=== PATIENT | female | born 1950 | race Caucasian/White ===

== ENCOUNTER → 2016-05-04 | Outpatient (REF) | payer OTHER ==
[~2016-05-04] MED LIST: /ALLEGDTA PO; /ESOM40CA PO; ACET650T PO; ALBU17IN INH; ASPI81TA4 PO; BENA25TA4 PO; BENACAR PO; BENI40TA3 PO; CIPR500T89 PO; FEXO60CA PO; FISH1000 PO; FLAG500T PO; FLEX5TAB3 PO; LEVA12INH INH; NORCOTAB PO; POTA75TA PO; SING5CHW PO; SYMB16INH INH; ZETI10TA21 PO
[2016-05-04 15:57] LABS: MEAN CORPUSCULAR HEMOGLOBIN 31.2 pg (27.0-33.0); MEAN CORPUSCULAR HGB CONC 33.5 g/dl (32.0-36.5); MEAN CORPUSCULAR VOLUME 93.1 fl (80.0-96.0); RED CELL DISTRIBUTION WIDTH 12.9 % (11.5-14.5); WHITE BLOOD COUNT 11.5 K/mm3 (4.0-10.0)
[2016-05-04 16:14] LABS: ALBUMIN/GLOBULIN RATIO 1.18 (1.00-1.93); ALKALINE PHOSPHATASE 80 U/L (45-117); ALT/SGPT 39 U/L (12-78); ANION GAP 9 MEQ/L (8-16); AST/SGOT 24 U/L (15-37); BILIRUBIN,TOTAL 0.4 MG/DL (0.2-1.0); BLOOD UREA NITROGEN 14 MG/DL (7-18); CALCIUM LEVEL 9.2 MG/DL (8.8-10.2); CARBON DIOXIDE LEVEL 28 MEQ/L (21-32); CHLORIDE LEVEL 107 MEQ/L (98-107); CHOLESTEROL LEVEL 216 MG/DL (<200); CREATININE FOR GFR 0.92 MG/DL (0.55-1.02); GLOMERULAR FILTRATION RATE > 60.0 (>45); GLUCOSE, FASTING 98 MG/DL (80-110); POTASSIUM SERUM 4.3 MEQ/L (3.5-5.1); SODIUM LEVEL 144 MEQ/L (136-145); TOTAL PROTEIN 7.4 GM/DL (6.4-8.2); TRIGLYCERIDES LEVEL 129 MG/DL (<150)
== END ==
LOC: M SFHCPLAZ 13:49
PROVIDERS: ATTEND Nurse Practitioner Adult Health
DX: I10 Essential (primary) hypertension (principal); E78.00 Pure hypercholesterolemia, unspecified; E03.9 Hypothyroidism, unspecified

== ENCOUNTER 2016-05-22 11:22 | Emergency (ER) | payer OTHER ==
[2016-05-22] MEDS ORDERED: KETOROLAC 30 MG/ML VIAL (J1885) As Ordered ONE (13:51)
--- NOTE | 2016-05-22 14:08 | REP ---
Clinical: Renal colic. Comparison: 03/21/2012. Findings: Lung bases are clear. Liver, spleen, pancreas, bilateral adrenal glands and kidneys are normal. No perinephric stranding, hydroureteronephrosis, intrarenal or obstructing ureteral calculi are identified. The enteric system is without obstruction. Scattered colonic and sigmoid diverticula noted without acute diverticulitis. While the appendix appears mildly prominent, there is no appendiceal wall thickening or periappendiceal stranding to suggest acute appendicitis. Fat containing ventral hernia to the left of midline measures approximately 4 x 2.3 cm. No ascites. No free air. No obvious adenopathy. Abdominal aorta without aneurysm. Surrounding musculoskeletal structures demonstrate age-related changes without focal osseous abnormality. Impression: 1. Normal appearance of the urinary tract system. 2. Subtle prominence to the appendix without findings to suggest acute appendicitis. 3. A 4 cm fat containing left periumbilical/ventral hernia Signed by Vitor Yang MD 05/22/2016 01:59 P
[2016-05-22 14:11] LABS: BASO % 0.4 % (0.0-1.0); EOS # 0.2 K/mm3 (0.0-0.50); EOS % 1.6 % (0.0-3.0); LARGE UNSTAINED CELL # 0.2 K/mm3 (0.0-0.4); LARGE UNSTAINED CELL % 1.5 % (0.0-4.0); LYMPH # 2.5 K/mm3 (1.5-4.5); LYMPH % 20.9 % (24.0-44.0); MEAN CORPUSCULAR HEMOGLOBIN 30.4 pg (27.0-33.0); MEAN CORPUSCULAR HGB CONC 32.7 g/dl (32.0-36.5); MONO # 0.8 K/mm3 (0.0-0.8); NEUTROPHILS # 7.5 K/mm3 (1.8-7.7); NEUTROPHILS % 68.6 % (36.0-66.0); PLATELET COUNT, AUTOMATED 281 k/mm3 (150-450); WHITE BLOOD COUNT 10.9 K/mm3 (4.0-10.0)
[2016-05-22 14:29] LABS: ALBUMIN 3.8 GM/DL (3.2-5.2); ALBUMIN/GLOBULIN RATIO 1.06 (1.00-1.93); ALKALINE PHOSPHATASE 69 U/L (45-117); ALT/SGPT 36 U/L (12-78); ANION GAP 9 MEQ/L (8-16); AST/SGOT 18 U/L (15-37); BILIRUBIN,DIRECT 0.1 MG/DL (0.0-0.2); BILIRUBIN,TOTAL 0.5 MG/DL (0.2-1.0); BLOOD UREA NITROGEN 13 MG/DL (7-18); CALCIUM LEVEL 9.2 MG/DL (8.8-10.2); CARBON DIOXIDE LEVEL 27 MEQ/L (21-32); CHLORIDE LEVEL 105 MEQ/L (98-107); CREATININE FOR GFR 0.87 MG/DL (0.55-1.02); GLOMERULAR FILTRATION RATE > 60.0 (>45); GLUCOSE, FASTING 111 MG/DL (80-110); POTASSIUM SERUM 3.9 MEQ/L (3.5-5.1); SODIUM LEVEL 141 MEQ/L (136-145); TOTAL PROTEIN 7.4 GM/DL (6.4-8.2)
--- NOTE | 2016-05-22 15:14 | EDDOCDS ---
Nurse's Notes [facility] Name: Janet Mullins Age: 66 yrs Sex: Female : 1950 Arrival Date: 05/22/2016 Time: 11:22 Bed I4 / M4 Private MD: Anjel Cummings Diagnosis: Abdominal and pelvic pain-right sided;Ventral hernia Presentation: 05/22 11:29 Presenting complaint: Patient states: Pt presents with c/o right sided abdominal and dls flank pain since pt has hx of kidney stones. Pt drinking water from large cup in triage instructed pt to be NPO until evaluated. Acute neurological deficits are not present. Mechanism of Injury: No Mechanism of Injury. Adult Sepsis Screening: The patient does not have new or worsening altered mentation. Patient's respiratory rate is less than 22. Systolic blood pressure is greater than 100. Patient has a qSOFA score of 0- Negative Sepsis Screen. Suicide/Homicide risk assessment- the patient denies having any suicidal and/or homicidal ideations and does not present with any other emotional, behavioral or mental health complaints. Status: Patient is not a appliance servicer or dependent. Transition of care: patient was not received from another setting of care. 11:29 Acuity: DAWIT Level 3 dls 11:29 Method Of Arrival: Walkin/Carried/Asstd dls Triage Assessment: 11:35 General: Appears uncomfortable. Pain: Pain currently is 6 out of 10 on a pain scale. dls HIV screening NA for this visit Offered previously. Historical: - Allergies: PENICILLINS; SULFA (SULFONAMIDES); - Home Meds: 1. benecar 40mg daily 2. Singulair Unknown Oral once daily 3. Zetia 10 mg Oral tab once daily 4. Synthroid 25 mcg Oral tab 1 tab once daily 5. Vitamin D Oral 2000 units daily 6. Nexium Unknown Oral 1 cap once daily 7. aspirin 81 mg Oral cpDR 81 mg daily 8. Flexeril 15mg Oral nightly 9. Probiotic Complex oral oral daily - PMHx: Asthma; Hypercholesterolemia; Hypertension; Kidney stones; - PSHx: Cholecystectomy; Knee Arthroplasty, Right; - Social history: Smoking status: Patient/guardian denies using No barriers to communication noted, The patient speaks fluent Turkmen. - Family history: Not pertinent. - : The pt / caregiver states he / she is not on anticoagulants. Home medication list is obtained from the patient, Unable to Verify Home Med List with the patient / caregiver. - Exposure Risk Screening:: None identified. Screenin:12 Screening information is obtained from the patient. Fall risk: No risks identified. dsf Assistance ADL's: requires no assistance with activities of daily living. Abuse/DV Screen: The patient / caregiver reports he/she is: not in a situation that causes fear, pain or injury. Nutritional screening: No deficits noted. Advance Directives: Currently, there is no health care proxy. home support is adequate. Assessment: 14:02 General: Appears in no apparent distress, Behavior is appropriate for age, cooperative. dsf Pain: Location: right upper quadrant and back Pain currently is 7 out of 10 on a pain scale. Quality of pain is described as constant. Neurological: Level of Consciousness is awake, alert. Cardiovascular: Capillary refill < 3 seconds. Respiratory: Airway is patent Respiratory effort is even, unlabored, Respiratory pattern is regular, symmetrical. Derm: Skin is pink, warm & dry. Musculoskeletal: No deficits noted. 15:11 Adult Sepsis Screening: The patient does not have new or worsening altered mentation. dsf Patient's respiratory rate is less than 22. Systolic blood pressure is greater than 100. Patient has a qSOFA score of 0- Negative Sepsis Screen. General: Appears in no apparent distress, Behavior is appropriate for age, cooperative. Pain: Location: RLQ and back Pain currently is 7 out of 10 on a pain scale. Neurological: Level of Consciousness is awake, alert. Cardiovascular: Capillary refill < 3 seconds. Respiratory: Airway is patent Respiratory effort is even, unlabored, Respiratory pattern is regular, symmetrical. Derm: Skin is pink, warm & dry. Vital Signs: 11:24 BP 148 / 95; Pulse 93; Resp 18; Temp 97.0(O); Pulse Ox 96% on R/A; Weight 106.14 kg ct3 (R); Height 5 ft. 2 in. (157.48 cm) (R); Pain 6/10; 14:50 BP 172 / 91; Pulse 74; Resp 20; Temp 96.2; Pulse Ox 97% ; Pain 4/10; jam1 11:24 Body Mass Index 42.80 (106.14 kg, 157.48 cm) ct3 Vitals: 11:24 Log In Time: May 22, 2016 at 11:23. ct3 ED Course: 11:24 Patient visited by Natalia Coulter PCA. ct3 11:24 Anjel Cummings MD is Private Physician. ct3 11:24 Patient moved to Waiting ct3 11:25 Patient moved to Pre RCE ct3 11:30 Triage Initiated dls 13:13 Patient moved to Triage 1 mk4 13:15 Miles Martinez PA-C is PHCP. cc10 13:15 Hugo Vasquez MD is Attending Physician. cc10 13:27 Patient visited by Miles Martinez PA-C. cc10 13:27 Patient visited by Miles Martinez PA-C. cc10 13:35 Pao Perez,CARLOS ALBERTO is Primary Nurse. ct3 13:35 Natalie Key, CARLOS ALBERTO is Primary Nurse. ct3 13:35 Patient moved to I4 / M4 ct3 13:44 Urinalysis Sent. ct3 13:44 Urine Culture Sent. ct3 14:02 Basic Metabolic Profile Sent. dsf 14:02 CBC with Diff Sent. dsf 14:02 Lipase Sent. dsf 14:02 Liver Profile Sent. dsf 14:03 Patient visited by Mayra Thomas,CARLOS ALBERTO. dsf 14:03 Inserted saline lock: 20 gauge in right antecubital area The patient tolerated the dsf procedure well. 14:23 CT ABD & PELVIS: No Contrast Returned. EDMS 14:31 Patient visited by Miles Martinez PA-C. cc10 15:07 Anjel Cummings MD is Referral Physician. cc10 15:12 The patient / caregiver is instructed regarding the plan of care and ED course. Patient dsf has correct armband on for positive identification. 15:13 Discontinued lock intact, bleeding controlled, pressure dressing applied, No dsf redness/swelling at site. No procedures done that require assistance. Administered Medications: 14:02 Drug: NS 0.9% 1000 ml [sodium chloride 0.9 % injection solution] Route: IV; Rate: dsf bolus; Site: right antecubital; 15:12 Follow up: IV Status: Completed infusion; IV Intake: 1000ml dsf 14:02 Drug: ketorolac 30 mg [ketorolac 30 mg/mL (1 mL) injection solution (1 mL)] Route: IVP; dsf Site: right antecubital; Intake: 15:12 IV: 1000.00ml; Total: 1000.00ml. dsf Order Results: Lab Order: Basic Metabolic Profile; SPEC05/22/16 13:59 Test: GLUCOSE, FASTING; Value: 111; Range: 80-110; Abnormal: Above high normal; Units: MG/DL; Status: F Test: BLOOD UREA NITROGEN; Value: 13; Range: 7-18; Units: MG/DL; Status: F Test: CREATININE FOR GFR; Value: 0.87; Range: 0.55-1.02; Units: MG/DL; Status: F Test: GLOMERULAR FILTRATION RATE; Value: > 60.0; Range: >45; Status: F Test: SODIUM LEVEL; Value: 141; Range: 136-145; Units: MEQ/L; Status: F Test: POTASSIUM SERUM; Value: 3.9; Range: 3.5-5.1; Units: MEQ/L; Status: F Test: CHLORIDE LEVEL; Value: 105; Range: 98-107; Units: MEQ/L; Status: F Test: CARBON DIOXIDE LEVEL; Value: 27; Range: 21-32; Units: MEQ/L; Status: F Test: ANION GAP; Value: 9; Range: 8-16; Units: MEQ/L; Status: F Test: CALCIUM LEVEL; Value: 9.2; Range: 8.8-10.2; Units: MG/DL; Status: F Test Note: ; Units are mL/min/1.73 m2 Chronic Kidney Disease Staging per NKF: Stage I & II GFR >=60 Normal to Mildly Decreased Stage III GFR 30-59 Moderately Decreased Stage IV GFR 15-29 Severely Decreased Stage V GFR <15 Very Little GFR Left ESRD GFR <15 on MACH[employer]PECTOR Lab Order: CBC with Diff; SPEC05/22/16 13:59 Test: WHITE BLOOD COUNT; Value: 10.9; Range: 4.0-10.0; Abnormal: Above high normal; Units: K/mm3; Status: F Test: RED BLOOD COUNT; Value: 5.07; Range: 4.00-5.40; Units: M/mm3; Status: F Test: HEMOGLOBIN; Value: 15.4; Range: 12.0-16.0; Units: g/dl; Status: F Test: HEMATOCRIT; Value: 47.2; Range: 36.0-47.0; Abnormal: Above high normal; Units: %; Status: F Test: MEAN CORPUSCULAR VOLUME; Value: 93.0; Range: 80.0-96.0; Units: fl; Status: F Test: MEAN CORPUSCULAR HEMOGLOBIN; Value: 30.4; Range: 27.0-33.0; Units: pg; Status: F Test: MEAN CORPUSCULAR HGB CONC; Value: 32.7; Range: 32.0-36.5; Units: g/dl; Status: F Test: RED CELL DISTRIBUTION WIDTH; Value: 13.0; Range: 11.5-14.5; Units: %; Status: F Test: PLATELET COUNT, AUTOMATED; Value: 281; Range: 150-450; Units: k/mm3; Status: F Test: NEUTROPHILS %; Value: 68.6; Range: 36.0-66.0; Abnormal: Above high normal; Units: %; Status: F Test: LYMPH %; Value: 20.9; Range: 24.0-44.0; Abnormal: Below low normal; Units: %; Status: F Test: MONO %; Value: 7.0; Range: 0.0-5.0; Abnormal: Above high normal; Units: %; Status: F Test: EOS %; Value: 1.6; Range: 0.0-3.0; Units: %; Status: F Test: BASO %; Value: 0.4; Range: 0.0-1.0; Units: %; Status: F Test: LARGE UNSTAINED CELL %; Value: 1.5; Range: 0.0-4.0; Units: %; Status: F Test: NEUTROPHILS #; Value: 7.5; Range: 1.8-7.7; Units: K/mm3; Status: F Test: LYMPH #; Value: 2.5; Range: 1.5-4.5; Units: K/mm3; Status: F Test: MONO #; Value: 0.8; Range: 0.0-0.8; Units: K/mm3; Status: F Test: EOS #; Value: 0.2; Range: 0.0-0.50; Units: K/mm3; Status: F Test: BASO #; Value: 0.0; Range: 0.0-0.2; Units: K/mm3; Status: F Test: LARGE UNSTAINED CELL #; Value: 0.2; Range: 0.0-0.4; Units: K/mm3; Status: F Lab Order: Lipase; [facility] 05/22/16 13:59 Test: LIPASE; Value: 129; Range: 73-393; Units: U/L; Status: F Lab Order: Liver Profile; [facility] 05/22/16 13:59 Test: AST/SGOT; Value: 18; Range: 15-37; Units: U/L; Status: F Test: ALT/SGPT; Value: 36; Range: 12-78; Units: U/L; Status: F Test: ALKALINE PHOSPHATASE; Value: 69; Range: 45-117; Units: U/L; Status: F Test: BILIRUBIN,TOTAL; Value: 0.5; Range: 0.2-1.0; Units: MG/DL; Status: F Test: BILIRUBIN,DIRECT; Value: 0.1; Range: 0.0-0.2; Units: MG/DL; Status: F Test: TOTAL PROTEIN; Value: 7.4; Range: 6.4-8.2; Units: GM/DL; Status: F Test: ALBUMIN; Value: 3.8; Range: 3.2-5.2; Units: GM/DL; Status: F Test: ALBUMIN/GLOBULIN RATIO; Value: 1.06; Range: 1.00-1.93; Status: F Lab Order: Urinalysis; [facility] 05/22/16 13:38 Test: APPEARANCE, URINE; Value: CLEAR; Range: CLEAR; Status: F Test: COLOR, URINE; Value: STRAW; Range: YELLOW; Status: F Test: PH,URINE; Value: 6.0; Range: 5.0-9.0; Units: UNITS; Status: F Test: SPECIFIC GRAVITY URINE AUTO; Value: 1.004; Range: 1.002-1.035; Status: F Test: PROTEIN, URINE AUTO; Value: NEGATIVE; Range: NEGATIVE; Units: mg/dL; Status: F Test: GLUCOSE, URINE (UA) AUTO; Value: NEGATIVE; Range: NEGATIVE; Units: mg/dL; Status: F Test: KETONE, URINE AUTO; Value: NEGATIVE; Range: NEGATIVE; Units: mg/dL; Status: F Test: UROBILINOGEN, URINE AUTO; Value: 0.2; Range: 0.0-2.0; Units: mg/dL; Status: F Test: BILIRUBIN, URINE AUTO; Value: NEGATIVE; Range: NEGATIVE; Status: F Test: NITRITE, URINE AUTO; Value: NEGATIVE; Range: NEGATIVE; Status: F Test: LEUKOCYTE ESTERASE, URINE AUTO; Value: NEGATIVE; Range: NEGATIVE; Status: F Test: BLOOD, URINE BLOOD; Value: NEGATIVE; Range: NEGATIVE; Status: F Test: WBC, URINE AUTO; Value: 2; Range: 0-3; Units: /HPF; Status: F Test: RBC, URINE AUTO; Value: 2; Range: 0-3; Units: /HPF; Status: F Test: BACTERIA, URINE AUTO; Value: 1+; Range: NEGATIVE; Abnormal: Above high normal; Status: F Test: SQUAMOUS EPITHELIAL CELL UR AU; Value: 2; Range: 0-6; Units: /HPF; Status: F Test: HYALINE CAST, URINE AUTO; Value: 0; Range: 0-1; Units: /LPF; Status: F Radiology Order: CT ABD & PELVIS: No Contrast Test: CT ABD & PELVIS: No Contrast REASON FOR EXAMINATION: Renal colic; Clinical: Renal colic.; ; Comparison: 03/21/2012.; ; Findings:; Lung bases are clear.; ; Liver, spleen, pancreas, bilateral adrenal glands and kidneys are normal. No; perinephric stranding, hydroureteronephrosis, intrarenal or obstructing ureteral; calculi are identified. The enteric system is without obstruction. Scattered; colonic and sigmoid diverticula noted without acute diverticulitis. While the; appendix appears mildly prominent, there is no appendiceal wall thickening or; periappendiceal stranding to suggest acute appendicitis. Fat containing ventral; hernia to the left of midline measures approximately 4 x 2.3 cm. No ascites. No; free air. No obvious adenopathy. Abdominal aorta without aneurysm. Surrounding; musculoskeletal structures demonstrate age-related changes without focal osseous; abnormality.; ; Impression:; 1. Normal appearance of the urinary tract system.; 2. Subtle prominence to the appendix without findings to suggest acute; appendicitis.; 3. A 4 cm fat containing left periumbilical/ventral hernia; ; ; Signed by; Vitor Yang MD 05/22/2016 01:59 P; Outcome: 15:07 Discharge ordered by Provider. cc10 15:12 Discharge Assessment: Patient awake, alert and oriented x 3. No cognitive and/or dsf functional deficits noted. Patient verbalized understanding of disposition instructions. patient administered narcotics - no. The following High Risk Discharge criteria are identified: None. Discharged to home ambulatory. Condition: stable. Discharge instructions given to patient, Instructed on discharge instructions, follow up and referral plans. medication usage, Demonstrated understanding of instructions, medications, Pt was receptive of discharge instructions/ teaching. Prescriptions given X 1. CT Study completed. Property sent home with patient. 15:13 Patient left the ED. dsf Signatures: Dispatcher [employer] EDMS Soniya Garcia, RN RN Norah Meyers, DIDACTIC PROGRAM IN DIETETICS DIRECTOR DIDACTIC PROGRAM IN DIETETICS DIRECTOR jam1 Natalia Coulter, DIDACTIC PROGRAM IN DIETETICS DIRECTOR DIDACTIC PROGRAM IN DIETETICS DIRECTOR ct3 Mayra Thomas RN RN dsAlem Cornejo RN RN 4 Miles Martinez, PA-Say PA-C cc10 ANNA
--- NOTE | 2016-05-22 15:14 | EDDOCDS ---
Physician Documentation [facility] Name: Janet Mullins Age: 66 yrs Sex: Female : 1950 Arrival Date: 05/22/2016 Time: 11:22 Bed I4 / M4 Private MD: Anjel Cummings Disposition: 05/22/16 15:07 Discharged to Home/Self Care. Impression: Abdominal and pelvic pain - right sided, Ventral hernia. - Condition is Stable. - Discharge Instructions: Abdominal Pain, Adult. - Prescriptions for Miralax 17 gram/dose - take 17 gram by ORAL route once daily As needed dilute in 8 ounces of water or juice; 1 bottle. - Medication Reconciliation form. - Follow up: Anjel Cummings MD; When: Call to arrange an appointment; Reason: Wound/Symptom Recheck, Recheck today's complaints, Worsening of conditions, Continuance of care. - Problem is an ongoing problem. - Symptoms have improved. Historical: - Allergies: PENICILLINS; SULFA (SULFONAMIDES); - Home Meds: 1. benecar 40mg daily 2. Singulair Unknown Oral once daily 3. Zetia 10 mg Oral tab once daily 4. Synthroid 25 mcg Oral tab 1 tab once daily 5. Vitamin D Oral 2000 units daily 6. Nexium Unknown Oral 1 cap once daily 7. aspirin 81 mg Oral cpDR 81 mg daily 8. Flexeril 15mg Oral nightly 9. Probiotic Complex oral oral daily - PMHx: Asthma; Hypercholesterolemia; Hypertension; Kidney stones; - PSHx: Cholecystectomy; Knee Arthroplasty, Right; - Social history: Smoking status: Patient/guardian denies using No barriers to communication noted, The patient speaks fluent Urdu. - Family history: Not pertinent. - : The pt / caregiver states he / she is not on anticoagulants. Home medication list is obtained from the patient, Unable to Verify Home Med List with the patient / caregiver. - Exposure Risk Screening:: None identified. Vital Signs: 05/22 11:24 BP 148 / 95; Pulse 93; Resp 18; Temp 97.0(O); Pulse Ox 96% on R/A; Weight 106.14 kg / ct3 234 lbs (R); Height 5 ft. 2 in. (157.48 cm) (R); Pain 6/10; 14:50 BP 172 / 91; Pulse 74; Resp 20; Temp 96.2; Pulse Ox 97% ; Pain 4/10; jam1 11:24 Body Mass Index 42.80 (106.14 kg, 157.48 cm) ct3 MDM: 13:33 NS 0.9% 1000 ml IV at bolus once ordered. cc10 13:33 ketorolac 30 mg IVP once ordered. cc10 13:33 IV Saline Lock ordered. cc10 13:33 Undress patient appropriately for examination ordered. cc10 13:34 Basic Metabolic Profile Ordered. EDMS 13:34 CBC with Diff Ordered. EDMS 13:34 Lipase Ordered. EDMS 13:34 Liver Profile Ordered. EDMS 13:34 Urinalysis Ordered. EDMS 13:34 Urine Culture Ordered. EDMS 13:35 CT ABD & PELVIS: No Contrast Ordered. EDMS 13:35 NOTHING BY MOUTH+DIET ordered. EDMS 14:31 Vital Signs ordered. cc10 14:31 Basic Metabolic Profile Reviewed. cc10 14:31 CBC with Diff Reviewed. cc10 14:31 Urinalysis Reviewed. cc10 14:31 Lipase Reviewed. cc10 14:31 Liver Profile Reviewed. cc10 14:31 CT ABD & PELVIS: No Contrast Reviewed. cc10 Administered Medications: 14:02 Drug: NS 0.9% 1000 ml [sodium chloride 0.9 % injection solution] Route: IV; Rate: dsf bolus; Site: right antecubital; 15:12 Follow up: IV Status: Completed infusion; IV Intake: 1000ml dsf 14:02 Drug: ketorolac 30 mg [ketorolac 30 mg/mL (1 mL) injection solution (1 mL)] Route: IVP; dsf Site: right antecubital; Signatures: Dispatcher [employer] Soniya Mendez, RN RN [facility] Mayra Thomas RN RN dsf Miles Martinez PA-C PAShahbaz cc10 MTDD
--- NOTE | 2016-05-24 16:14 | EDDOCDS ---
Nurse's Notes [facility] Name: Janet Mullins Age: 66 yrs Sex: Female : 1950 Arrival Date: 05/22/2016 Time: 11:22 Bed I4 / M4 Private MD: Anjel Cummings Diagnosis: Abdominal and pelvic pain-right sided;Ventral hernia Presentation: 05/22 11:29 Presenting complaint: Patient states: Pt presents with c/o right sided abdominal and dls flank pain since pt has hx of kidney stones. Pt drinking water from large cup in triage instructed pt to be NPO until evaluated. Acute neurological deficits are not present. Mechanism of Injury: No Mechanism of Injury. Adult Sepsis Screening: The patient does not have new or worsening altered mentation. Patient's respiratory rate is less than 22. Systolic blood pressure is greater than 100. Patient has a qSOFA score of 0- Negative Sepsis Screen. Suicide/Homicide risk assessment- the patient denies having any suicidal and/or homicidal ideations and does not present with any other emotional, behavioral or mental health complaints. Status: Patient is not a water softener servicer or dependent. Transition of care: patient was not received from another setting of care. 11:29 Acuity: DAWIT Level 3 dls 11:29 Method Of Arrival: Walkin/Carried/Asstd dls Triage Assessment: 11:35 General: Appears uncomfortable. Pain: Pain currently is 6 out of 10 on a pain scale. dls HIV screening NA for this visit Offered previously. Historical: - Allergies: PENICILLINS; SULFA (SULFONAMIDES); - Home Meds: 1. benecar 40mg daily 2. Singulair Unknown Oral once daily 3. Zetia 10 mg Oral tab once daily 4. Synthroid 25 mcg Oral tab 1 tab once daily 5. Vitamin D Oral 2000 units daily 6. Nexium Unknown Oral 1 cap once daily 7. aspirin 81 mg Oral cpDR 81 mg daily 8. Flexeril 15mg Oral nightly 9. Probiotic Complex oral oral daily - PMHx: Asthma; Hypercholesterolemia; Hypertension; Kidney stones; - PSHx: Cholecystectomy; Knee Arthroplasty, Right; - Social history: Smoking status: Patient/guardian denies using No barriers to communication noted, The patient speaks fluent Georgian. - Family history: Not pertinent. - : The pt / caregiver states he / she is not on anticoagulants. Home medication list is obtained from the patient, Unable to Verify Home Med List with the patient / caregiver. - Exposure Risk Screening:: None identified. Screenin:12 Screening information is obtained from the patient. Fall risk: No risks identified. dsf Assistance ADL's: requires no assistance with activities of daily living. Abuse/DV Screen: The patient / caregiver reports he/she is: not in a situation that causes fear, pain or injury. Nutritional screening: No deficits noted. Advance Directives: Currently, there is no health care proxy. home support is adequate. Assessment: 14:02 General: Appears in no apparent distress, Behavior is appropriate for age, cooperative. dsf Pain: Location: right upper quadrant and back Pain currently is 7 out of 10 on a pain scale. Quality of pain is described as constant. Neurological: Level of Consciousness is awake, alert. Cardiovascular: Capillary refill < 3 seconds. Respiratory: Airway is patent Respiratory effort is even, unlabored, Respiratory pattern is regular, symmetrical. Derm: Skin is pink, warm & dry. Musculoskeletal: No deficits noted. 15:11 Adult Sepsis Screening: The patient does not have new or worsening altered mentation. dsf Patient's respiratory rate is less than 22. Systolic blood pressure is greater than 100. Patient has a qSOFA score of 0- Negative Sepsis Screen. General: Appears in no apparent distress, Behavior is appropriate for age, cooperative. Pain: Location: RLQ and back Pain currently is 7 out of 10 on a pain scale. Neurological: Level of Consciousness is awake, alert. Cardiovascular: Capillary refill < 3 seconds. Respiratory: Airway is patent Respiratory effort is even, unlabored, Respiratory pattern is regular, symmetrical. Derm: Skin is pink, warm & dry. Vital Signs: 11:24 BP 148 / 95; Pulse 93; Resp 18; Temp 97.0(O); Pulse Ox 96% on R/A; Weight 106.14 kg ct3 (R); Height 5 ft. 2 in. (157.48 cm) (R); Pain 6/10; 14:50 BP 172 / 91; Pulse 74; Resp 20; Temp 96.2; Pulse Ox 97% ; Pain 4/10; jam1 11:24 Body Mass Index 42.80 (106.14 kg, 157.48 cm) ct3 Vitals: 11:24 Log In Time: May 22, 2016 at 11:23. ct3 ED Course: 11:24 Patient visited by Natalia Coulter PCA. ct3 11:24 Anjel Cummings MD is Private Physician. ct3 11:24 Patient moved to Waiting ct3 11:25 Patient moved to Pre RCE ct3 11:30 Triage Initiated dls 13:13 Patient moved to Triage 1 mk4 13:15 Miles Martinez PA-C is PHCP. cc10 13:15 Hugo Vasquez MD is Attending Physician. cc10 13:27 Patient visited by Miles Martinez PA-C. cc10 13:27 Patient visited by Miles Martinez PA-C. cc10 13:35 Pao Perez,RN is Primary Nurse. ct3 13:35 Natalie Key, CARLOS ALBERTO is Primary Nurse. ct3 13:35 Patient moved to I4 / M4 ct3 13:44 Urinalysis Sent. ct3 13:44 Urine Culture Sent. ct3 14:02 Basic Metabolic Profile Sent. dsf 14:02 CBC with Diff Sent. dsf 14:02 Lipase Sent. dsf 14:02 Liver Profile Sent. dsf 14:03 Patient visited by Mayra Thomas,CARLOS ALBERTO. dsf 14:03 Inserted saline lock: 20 gauge in right antecubital area The patient tolerated the dsf procedure well. 14:23 CT ABD & PELVIS: No Contrast Returned. EDMS 14:31 Patient visited by Miles Martinez PA-C. cc10 15:07 Anjel Cummings MD is Referral Physician. cc10 15:12 The patient / caregiver is instructed regarding the plan of care and ED course. Patient dsf has correct armband on for positive identification. 15:13 Discontinued lock intact, bleeding controlled, pressure dressing applied, No dsf redness/swelling at site. No procedures done that require assistance. 05/23 12:51 T-Sheet-- Draft Copy was scanned into [employer] and attached to record. gb Administered Medications: 05/22 14:02 Drug: NS 0.9% 1000 ml [sodium chloride 0.9 % injection solution] Route: IV; Rate: dsf bolus; Site: right antecubital; 15:12 Follow up: IV Status: Completed infusion; IV Intake: 1000ml dsf 14:02 Drug: ketorolac 30 mg [ketorolac 30 mg/mL (1 mL) injection solution (1 mL)] Route: IVP; dsf Site: right antecubital; Intake: 15:12 IV: 1000.00ml; Total: 1000.00ml. dsf Order Results: Lab Order: Basic Metabolic Profile; SPEC'M 05/22/16 13:59 Test: GLUCOSE, FASTING; Value: 111; Range: 80-110; Abnormal: Above high normal; Units: MG/DL; Status: F Test: BLOOD UREA NITROGEN; Value: 13; Range: 7-18; Units: MG/DL; Status: F Test: CREATININE FOR GFR; Value: 0.87; Range: 0.55-1.02; Units: MG/DL; Status: F Test: GLOMERULAR FILTRATION RATE; Value: > 60.0; Range: >45; Status: F Test: SODIUM LEVEL; Value: 141; Range: 136-145; Units: MEQ/L; Status: F Test: POTASSIUM SERUM; Value: 3.9; Range: 3.5-5.1; Units: MEQ/L; Status: F Test: CHLORIDE LEVEL; Value: 105; Range: 98-107; Units: MEQ/L; Status: F Test: CARBON DIOXIDE LEVEL; Value: 27; Range: 21-32; Units: MEQ/L; Status: F Test: ANION GAP; Value: 9; Range: 8-16; Units: MEQ/L; Status: F Test: CALCIUM LEVEL; Value: 9.2; Range: 8.8-10.2; Units: MG/DL; Status: F Test Note: ; Units are mL/min/1.73 m2 Chronic Kidney Disease Staging per NKF: Stage I & II GFR >=60 Normal to Mildly Decreased Stage III GFR 30-59 Moderately Decreased Stage IV GFR 15-29 Severely Decreased Stage V GFR <15 Very Little GFR Left ESRD GFR <15 on CARE PROCESS MANAGER Lab Order: CBC with Diff; SPEC'M 05/22/16 13:59 Test: WHITE BLOOD COUNT; Value: 10.9; Range: 4.0-10.0; Abnormal: Above high normal; Units: K/mm3; Status: F Test: RED BLOOD COUNT; Value: 5.07; Range: 4.00-5.40; Units: M/mm3; Status: F Test: HEMOGLOBIN; Value: 15.4; Range: 12.0-16.0; Units: g/dl; Status: F Test: HEMATOCRIT; Value: 47.2; Range: 36.0-47.0; Abnormal: Above high normal; Units: %; Status: F Test: MEAN CORPUSCULAR VOLUME; Value: 93.0; Range: 80.0-96.0; Units: fl; Status: F Test: MEAN CORPUSCULAR HEMOGLOBIN; Value: 30.4; Range: 27.0-33.0; Units: pg; Status: F Test: MEAN CORPUSCULAR HGB CONC; Value: 32.7; Range: 32.0-36.5; Units: g/dl; Status: F Test: RED CELL DISTRIBUTION WIDTH; Value: 13.0; Range: 11.5-14.5; Units: %; Status: F Test: PLATELET COUNT, AUTOMATED; Value: 281; Range: 150-450; Units: k/mm3; Status: F Test: NEUTROPHILS %; Value: 68.6; Range: 36.0-66.0; Abnormal: Above high normal; Units: %; Status: F Test: LYMPH %; Value: 20.9; Range: 24.0-44.0; Abnormal: Below low normal; Units: %; Status: F Test: MONO %; Value: 7.0; Range: 0.0-5.0; Abnormal: Above high normal; Units: %; Status: F Test: EOS %; Value: 1.6; Range: 0.0-3.0; Units: %; Status: F Test: BASO %; Value: 0.4; Range: 0.0-1.0; Units: %; Status: F Test: LARGE UNSTAINED CELL %; Value: 1.5; Range: 0.0-4.0; Units: %; Status: F Test: NEUTROPHILS #; Value: 7.5; Range: 1.8-7.7; Units: K/mm3; Status: F Test: LYMPH #; Value: 2.5; Range: 1.5-4.5; Units: K/mm3; Status: F Test: MONO #; Value: 0.8; Range: 0.0-0.8; Units: K/mm3; Status: F Test: EOS #; Value: 0.2; Range: 0.0-0.50; Units: K/mm3; Status: F Test: BASO #; Value: 0.0; Range: 0.0-0.2; Units: K/mm3; Status: F Test: LARGE UNSTAINED CELL #; Value: 0.2; Range: 0.0-0.4; Units: K/mm3; Status: F Lab Order: Lipase; [facility] 05/22/16 13:59 Test: LIPASE; Value: 129; Range: 73-393; Units: U/L; Status: F Lab Order: Liver Profile; [facility] 05/22/16 13:59 Test: AST/SGOT; Value: 18; Range: 15-37; Units: U/L; Status: F Test: ALT/SGPT; Value: 36; Range: 12-78; Units: U/L; Status: F Test: ALKALINE PHOSPHATASE; Value: 69; Range: 45-117; Units: U/L; Status: F Test: BILIRUBIN,TOTAL; Value: 0.5; Range: 0.2-1.0; Units: MG/DL; Status: F Test: BILIRUBIN,DIRECT; Value: 0.1; Range: 0.0-0.2; Units: MG/DL; Status: F Test: TOTAL PROTEIN; Value: 7.4; Range: 6.4-8.2; Units: GM/DL; Status: F Test: ALBUMIN; Value: 3.8; Range: 3.2-5.2; Units: GM/DL; Status: F Test: ALBUMIN/GLOBULIN RATIO; Value: 1.06; Range: 1.00-1.93; Status: F Lab Order: Urinalysis; [facility] 05/22/16 13:38 Test: APPEARANCE, URINE; Value: CLEAR; Range: CLEAR; Status: F Test: COLOR, URINE; Value: STRAW; Range: YELLOW; Status: F Test: PH,URINE; Value: 6.0; Range: 5.0-9.0; Units: UNITS; Status: F Test: SPECIFIC GRAVITY URINE AUTO; Value: 1.004; Range: 1.002-1.035; Status: F Test: PROTEIN, URINE AUTO; Value: NEGATIVE; Range: NEGATIVE; Units: mg/dL; Status: F Test: GLUCOSE, URINE (UA) AUTO; Value: NEGATIVE; Range: NEGATIVE; Units: mg/dL; Status: F Test: KETONE, URINE AUTO; Value: NEGATIVE; Range: NEGATIVE; Units: mg/dL; Status: F Test: UROBILINOGEN, URINE AUTO; Value: 0.2; Range: 0.0-2.0; Units: mg/dL; Status: F Test: BILIRUBIN, URINE AUTO; Value: NEGATIVE; Range: NEGATIVE; Status: F Test: NITRITE, URINE AUTO; Value: NEGATIVE; Range: NEGATIVE; Status: F Test: LEUKOCYTE ESTERASE, URINE AUTO; Value: NEGATIVE; Range: NEGATIVE; Status: F Test: BLOOD, URINE BLOOD; Value: NEGATIVE; Range: NEGATIVE; Status: F Test: WBC, URINE AUTO; Value: 2; Range: 0-3; Units: /HPF; Status: F Test: RBC, URINE AUTO; Value: 2; Range: 0-3; Units: /HPF; Status: F Test: BACTERIA, URINE AUTO; Value: 1+; Range: NEGATIVE; Abnormal: Above high normal; Status: F Test: SQUAMOUS EPITHELIAL CELL UR AU; Value: 2; Range: 0-6; Units: /HPF; Status: F Test: HYALINE CAST, URINE AUTO; Value: 0; Range: 0-1; Units: /LPF; Status: F Radiology Order: CT ABD & PELVIS: No Contrast Test: CT ABD & PELVIS: No Contrast REASON FOR EXAMINATION: Renal colic; Clinical: Renal colic.; ; Comparison: 03/21/2012.; ; Findings:; Lung bases are clear.; ; Liver, spleen, pancreas, bilateral adrenal glands and kidneys are normal. No; perinephric stranding, hydroureteronephrosis, intrarenal or obstructing ureteral; calculi are identified. The enteric system is without obstruction. Scattered; colonic and sigmoid diverticula noted without acute diverticulitis. While the; appendix appears mildly prominent, there is no appendiceal wall thickening or; periappendiceal stranding to suggest acute appendicitis. Fat containing ventral; hernia to the left of midline measures approximately 4 x 2.3 cm. No ascites. No; free air. No obvious adenopathy. Abdominal aorta without aneurysm. Surrounding; musculoskeletal structures demonstrate age-related changes without focal osseous; abnormality.; ; Impression:; 1. Normal appearance of the urinary tract system.; 2. Subtle prominence to the appendix without findings to suggest acute; appendicitis.; 3. A 4 cm fat containing left periumbilical/ventral hernia; ; ; Signed by; Vitor Yang MD 05/22/2016 01:59 P; Outcome: 15:07 Discharge ordered by Provider. cc10 15:12 Discharge Assessment: Patient awake, alert and oriented x 3. No cognitive and/or dsf functional deficits noted. Patient verbalized understanding of disposition instructions. patient administered narcotics - no. The following High Risk Discharge criteria are identified: None. Discharged to home ambulatory. Condition: stable. Discharge instructions given to patient, Instructed on discharge instructions, follow up and referral plans. medication usage, Demonstrated understanding of instructions, medications, Pt was receptive of discharge instructions/ teaching. Prescriptions given X 1. CT Study completed. Property sent home with patient. 15:13 Patient left the ED. dsf Signatures: Dispatcher [employer] EDMS Soniya Garcia, CARLOS ALBERTO RN dls Norah Hernandez, CREDIT ADMINISTRATION OFFICER CREDIT ADMINISTRATION OFFICER jam1 Winifred Lind, Reg Reg gb Natalia Coulter, CREDIT ADMINISTRATION OFFICER CREDIT ADMINISTRATION OFFICER ct3 Mayra Thomas RN RN dsf Alem Barrios RN RN mk4 Miles Martinez, PA-Say PA-Say cc10 Chart Complete MTDD
--- NOTE | 2016-05-24 16:14 | EDDOCDS ---
Physician Documentation [facility] Name: Janet Mullins Age: 66 yrs Sex: Female : 1950 Arrival Date: 05/22/2016 Time: 11:22 Bed I4 / M4 Private MD: Anjel Cummings Disposition: 05/22/16 15:07 Discharged to Home/Self Care. Impression: Abdominal and pelvic pain - right sided, Ventral hernia. - Condition is Stable. - Discharge Instructions: Abdominal Pain, Adult. - Prescriptions for Miralax 17 gram/dose - take 17 gram by ORAL route once daily As needed dilute in 8 ounces of water or juice; 1 bottle. - Medication Reconciliation form. - Follow up: Anjel Cummings MD; When: Call to arrange an appointment; Reason: Wound/Symptom Recheck, Recheck today's complaints, Worsening of conditions, Continuance of care. - Problem is an ongoing problem. - Symptoms have improved. Historical: - Allergies: PENICILLINS; SULFA (SULFONAMIDES); - Home Meds: 1. benecar 40mg daily 2. Singulair Unknown Oral once daily 3. Zetia 10 mg Oral tab once daily 4. Synthroid 25 mcg Oral tab 1 tab once daily 5. Vitamin D Oral 2000 units daily 6. Nexium Unknown Oral 1 cap once daily 7. aspirin 81 mg Oral cpDR 81 mg daily 8. Flexeril 15mg Oral nightly 9. Probiotic Complex oral oral daily - PMHx: Asthma; Hypercholesterolemia; Hypertension; Kidney stones; - PSHx: Cholecystectomy; Knee Arthroplasty, Right; - Social history: Smoking status: Patient/guardian denies using No barriers to communication noted, The patient speaks fluent Slovenian. - Family history: Not pertinent. - : The pt / caregiver states he / she is not on anticoagulants. Home medication list is obtained from the patient, Unable to Verify Home Med List with the patient / caregiver. - Exposure Risk Screening:: None identified. Vital Signs: 05/22 11:24 BP 148 / 95; Pulse 93; Resp 18; Temp 97.0(O); Pulse Ox 96% on R/A; Weight 106.14 kg / ct3 234 lbs (R); Height 5 ft. 2 in. (157.48 cm) (R); Pain 6/10; 14:50 BP 172 / 91; Pulse 74; Resp 20; Temp 96.2; Pulse Ox 97% ; Pain 4/10; jam1 11:24 Body Mass Index 42.80 (106.14 kg, 157.48 cm) ct3 MDM: 13:33 NS 0.9% 1000 ml IV at bolus once ordered. cc10 13:33 ketorolac 30 mg IVP once ordered. cc10 13:33 IV Saline Lock ordered. cc10 13:33 Undress patient appropriately for examination ordered. cc10 13:34 Basic Metabolic Profile Ordered. EDMS 13:34 CBC with Diff Ordered. EDMS 13:34 Lipase Ordered. EDMS 13:34 Liver Profile Ordered. EDMS 13:34 Urinalysis Ordered. EDMS 13:34 Urine Culture Ordered. EDMS 13:35 CT ABD & PELVIS: No Contrast Ordered. EDMS 13:35 NOTHING BY MOUTH+DIET ordered. EDMS 14:31 Vital Signs ordered. cc10 14:31 Basic Metabolic Profile Reviewed. cc10 14:31 CBC with Diff Reviewed. cc10 14:31 Urinalysis Reviewed. cc10 14:31 Lipase Reviewed. cc10 14:31 Liver Profile Reviewed. cc10 14:31 CT ABD & PELVIS: No Contrast Reviewed. cc10 05/23 12:51 T-Sheet-- Draft Copy was scanned into [employer] and attached to record. gb Administered Medications: 05/22 14:02 Drug: NS 0.9% 1000 ml [sodium chloride 0.9 % injection solution] Route: IV; Rate: dsf bolus; Site: right antecubital; 15:12 Follow up: IV Status: Completed infusion; IV Intake: 1000ml dsf 14:02 Drug: ketorolac 30 mg [ketorolac 30 mg/mL (1 mL) injection solution (1 mL)] Route: IVP; dsf Site: right antecubital; Signatures: Dispatcher [employer] Soniya Mendez RN RN dls Winifred Lind, Reg Reg Mayra Ortiz RN RN dsf Miles Martinez PA-C PA-C cc10 The chart was reviewed and I authenticate all verbal orders and agree with the evaluation and treatment provided.Attachments: 05/23 12:51 T-Sheet-- Draft Copy gb Chart Complete MTDD
--- NOTE | 2016-05-26 17:34 | EDDOCDS ---
Physician Documentation [facility] Name: Janet Mullins Age: 66 yrs Sex: Female : 1950 Arrival Date: 05/22/2016 Time: 11:22 Bed I4 / M4 Private MD: Anjel Cummings Disposition: 05/22/16 15:07 Discharged to Home/Self Care. Impression: Abdominal and pelvic pain - right sided, Ventral hernia. - Condition is Stable. - Discharge Instructions: Abdominal Pain, Adult. - Prescriptions for Miralax 17 gram/dose - take 17 gram by ORAL route once daily As needed dilute in 8 ounces of water or juice; 1 bottle. - Medication Reconciliation form. - Follow up: Anjel Cummings MD; When: Call to arrange an appointment; Reason: Wound/Symptom Recheck, Recheck today's complaints, Worsening of conditions, Continuance of care. - Problem is an ongoing problem. - Symptoms have improved. Historical: - Allergies: PENICILLINS; SULFA (SULFONAMIDES); - Home Meds: 1. benecar 40mg daily 2. Singulair Unknown Oral once daily 3. Zetia 10 mg Oral tab once daily 4. Synthroid 25 mcg Oral tab 1 tab once daily 5. Vitamin D Oral 2000 units daily 6. Nexium Unknown Oral 1 cap once daily 7. aspirin 81 mg Oral cpDR 81 mg daily 8. Flexeril 15mg Oral nightly 9. Probiotic Complex oral oral daily - PMHx: Asthma; Hypercholesterolemia; Hypertension; Kidney stones; - PSHx: Cholecystectomy; Knee Arthroplasty, Right; - Social history: Smoking status: Patient/guardian denies using No barriers to communication noted, The patient speaks fluent Czech. - Family history: Not pertinent. - : The pt / caregiver states he / she is not on anticoagulants. Home medication list is obtained from the patient, Unable to Verify Home Med List with the patient / caregiver. - Exposure Risk Screening:: None identified. Vital Signs: 05/22 11:24 BP 148 / 95; Pulse 93; Resp 18; Temp 97.0(O); Pulse Ox 96% on R/A; Weight 106.14 kg / ct3 234 lbs (R); Height 5 ft. 2 in. (157.48 cm) (R); Pain 6/10; 14:50 BP 172 / 91; Pulse 74; Resp 20; Temp 96.2; Pulse Ox 97% ; Pain 4/10; jam1 11:24 Body Mass Index 42.80 (106.14 kg, 157.48 cm) ct3 MDM: 13:33 NS 0.9% 1000 ml IV at bolus once ordered. cc10 13:33 ketorolac 30 mg IVP once ordered. cc10 13:33 IV Saline Lock ordered. cc10 13:33 Undress patient appropriately for examination ordered. cc10 13:34 Basic Metabolic Profile Ordered. EDMS 13:34 CBC with Diff Ordered. EDMS 13:34 Lipase Ordered. EDMS 13:34 Liver Profile Ordered. EDMS 13:34 Urinalysis Ordered. EDMS 13:34 Urine Culture Ordered. EDMS 13:35 CT ABD & PELVIS: No Contrast Ordered. EDMS 13:35 NOTHING BY MOUTH+DIET ordered. EDMS 14:31 Vital Signs ordered. cc10 14:31 Basic Metabolic Profile Reviewed. cc10 14:31 CBC with Diff Reviewed. cc10 14:31 Urinalysis Reviewed. cc10 14:31 Lipase Reviewed. cc10 14:31 Liver Profile Reviewed. cc10 14:31 CT ABD & PELVIS: No Contrast Reviewed. cc10 05/23 12:51 T-Sheet-- Draft Copy was scanned into [id number] and attached to record. gb Administered Medications: 05/22 14:02 Drug: NS 0.9% 1000 ml [sodium chloride 0.9 % injection solution] Route: IV; Rate: dsf bolus; Site: right antecubital; 15:12 Follow up: IV Status: Completed infusion; IV Intake: 1000ml dsf 14:02 Drug: ketorolac 30 mg [ketorolac 30 mg/mL (1 mL) injection solution (1 mL)] Route: IVP; dsf Site: right antecubital; Signatures: Dispatcher [employer] Soniya Mendez RN RN dls Winifred Lind, Reg Reg Mayra Ortiz RN RN dsf Miles Martinez PA-C PA-C cc10 The chart was reviewed and I authenticate all verbal orders and agree with the evaluation and treatment provided.Attachments: 05/23 12:51 T-Sheet-- Draft Copy gb Chart Complete MTDD
--- NOTE | 2016-05-26 17:34 | EDDOCDS ---
Physician Documentation [facility] Name: Janet Mullins Age: 66 yrs Sex: Female : 1950 Arrival Date: 05/22/2016 Time: 11:22 Bed I4 / M4 Private MD: Anjel Cummings Disposition: 05/22/16 15:07 Discharged to Home/Self Care. Impression: Abdominal and pelvic pain - right sided, Ventral hernia. - Condition is Stable. - Discharge Instructions: Abdominal Pain, Adult. - Prescriptions for Miralax 17 gram/dose - take 17 gram by ORAL route once daily As needed dilute in 8 ounces of water or juice; 1 bottle. - Medication Reconciliation form. - Follow up: Anjel Cummings MD; When: Call to arrange an appointment; Reason: Wound/Symptom Recheck, Recheck today's complaints, Worsening of conditions, Continuance of care. - Problem is an ongoing problem. - Symptoms have improved. Historical: - Allergies: PENICILLINS; SULFA (SULFONAMIDES); - Home Meds: 1. benecar 40mg daily 2. Singulair Unknown Oral once daily 3. Zetia 10 mg Oral tab once daily 4. Synthroid 25 mcg Oral tab 1 tab once daily 5. Vitamin D Oral 2000 units daily 6. Nexium Unknown Oral 1 cap once daily 7. aspirin 81 mg Oral cpDR 81 mg daily 8. Flexeril 15mg Oral nightly 9. Probiotic Complex oral oral daily - PMHx: Asthma; Hypercholesterolemia; Hypertension; Kidney stones; - PSHx: Cholecystectomy; Knee Arthroplasty, Right; - Social history: Smoking status: Patient/guardian denies using No barriers to communication noted, The patient speaks fluent Greek. - Family history: Not pertinent. - : The pt / caregiver states he / she is not on anticoagulants. Home medication list is obtained from the patient, Unable to Verify Home Med List with the patient / caregiver. - Exposure Risk Screening:: None identified. Vital Signs: 05/22 11:24 BP 148 / 95; Pulse 93; Resp 18; Temp 97.0(O); Pulse Ox 96% on R/A; Weight 106.14 kg / ct3 234 lbs (R); Height 5 ft. 2 in. (157.48 cm) (R); Pain 6/10; 14:50 BP 172 / 91; Pulse 74; Resp 20; Temp 96.2; Pulse Ox 97% ; Pain 4/10; jam1 11:24 Body Mass Index 42.80 (106.14 kg, 157.48 cm) ct3 MDM: 13:33 NS 0.9% 1000 ml IV at bolus once ordered. cc10 13:33 ketorolac 30 mg IVP once ordered. cc10 13:33 IV Saline Lock ordered. cc10 13:33 Undress patient appropriately for examination ordered. cc10 13:34 Basic Metabolic Profile Ordered. EDMS 13:34 CBC with Diff Ordered. EDMS 13:34 Lipase Ordered. EDMS 13:34 Liver Profile Ordered. EDMS 13:34 Urinalysis Ordered. EDMS 13:34 Urine Culture Ordered. EDMS 13:35 CT ABD & PELVIS: No Contrast Ordered. EDMS 13:35 NOTHING BY MOUTH+DIET ordered. EDMS 14:31 Vital Signs ordered. cc10 14:31 Basic Metabolic Profile Reviewed. cc10 14:31 CBC with Diff Reviewed. cc10 14:31 Urinalysis Reviewed. cc10 14:31 Lipase Reviewed. cc10 14:31 Liver Profile Reviewed. cc10 14:31 CT ABD & PELVIS: No Contrast Reviewed. cc10 05/23 12:51 T-Sheet-- Draft Copy was scanned into [employer] and attached to record. gb Administered Medications: 05/22 14:02 Drug: NS 0.9% 1000 ml [sodium chloride 0.9 % injection solution] Route: IV; Rate: dsf bolus; Site: right antecubital; 15:12 Follow up: IV Status: Completed infusion; IV Intake: 1000ml dsf 14:02 Drug: ketorolac 30 mg [ketorolac 30 mg/mL (1 mL) injection solution (1 mL)] Route: IVP; dsf Site: right antecubital; Signatures: Dispatcher [employer] Soniya Mendez RN RN dls Winifred Lind, Reg Reg Mayra Ortiz RN RN dsf Miles Martinez PA-C PA-C cc10 The chart was reviewed and I authenticate all verbal orders and agree with the evaluation and treatment provided.Attachments: 05/23 12:51 T-Sheet-- Draft Copy gb Chart Complete MTDD
--- NOTE | 2016-05-26 17:34 | EDDOCDS ---
Nurse's Notes [facility] Name: Janet Mullins Age: 66 yrs Sex: Female : 1950 Arrival Date: 05/22/2016 Time: 11:22 Bed I4 / M4 Private MD: Anjel Cummings Diagnosis: Abdominal and pelvic pain-right sided;Ventral hernia Presentation: 05/22 11:29 Presenting complaint: Patient states: Pt presents with c/o right sided abdominal and dls flank pain since pt has hx of kidney stones. Pt drinking water from large cup in triage instructed pt to be NPO until evaluated. Acute neurological deficits are not present. Mechanism of Injury: No Mechanism of Injury. Adult Sepsis Screening: The patient does not have new or worsening altered mentation. Patient's respiratory rate is less than 22. Systolic blood pressure is greater than 100. Patient has a qSOFA score of 0- Negative Sepsis Screen. Suicide/Homicide risk assessment- the patient denies having any suicidal and/or homicidal ideations and does not present with any other emotional, behavioral or mental health complaints. Status: Patient is not a guest services or dependent. Transition of care: patient was not received from another setting of care. 11:29 Acuity: DAWIT Level 3 dls 11:29 Method Of Arrival: Walkin/Carried/Asstd dls Triage Assessment: 11:35 General: Appears uncomfortable. Pain: Pain currently is 6 out of 10 on a pain scale. dls HIV screening NA for this visit Offered previously. Historical: - Allergies: PENICILLINS; SULFA (SULFONAMIDES); - Home Meds: 1. benecar 40mg daily 2. Singulair Unknown Oral once daily 3. Zetia 10 mg Oral tab once daily 4. Synthroid 25 mcg Oral tab 1 tab once daily 5. Vitamin D Oral 2000 units daily 6. Nexium Unknown Oral 1 cap once daily 7. aspirin 81 mg Oral cpDR 81 mg daily 8. Flexeril 15mg Oral nightly 9. Probiotic Complex oral oral daily - PMHx: Asthma; Hypercholesterolemia; Hypertension; Kidney stones; - PSHx: Cholecystectomy; Knee Arthroplasty, Right; - Social history: Smoking status: Patient/guardian denies using No barriers to communication noted, The patient speaks fluent Serbian. - Family history: Not pertinent. - : The pt / caregiver states he / she is not on anticoagulants. Home medication list is obtained from the patient, Unable to Verify Home Med List with the patient / caregiver. - Exposure Risk Screening:: None identified. Screenin:12 Screening information is obtained from the patient. Fall risk: No risks identified. dsf Assistance ADL's: requires no assistance with activities of daily living. Abuse/DV Screen: The patient / caregiver reports he/she is: not in a situation that causes fear, pain or injury. Nutritional screening: No deficits noted. Advance Directives: Currently, there is no health care proxy. home support is adequate. Assessment: 14:02 General: Appears in no apparent distress, Behavior is appropriate for age, cooperative. dsf Pain: Location: right upper quadrant and back Pain currently is 7 out of 10 on a pain scale. Quality of pain is described as constant. Neurological: Level of Consciousness is awake, alert. Cardiovascular: Capillary refill < 3 seconds. Respiratory: Airway is patent Respiratory effort is even, unlabored, Respiratory pattern is regular, symmetrical. Derm: Skin is pink, warm & dry. Musculoskeletal: No deficits noted. 15:11 Adult Sepsis Screening: The patient does not have new or worsening altered mentation. dsf Patient's respiratory rate is less than 22. Systolic blood pressure is greater than 100. Patient has a qSOFA score of 0- Negative Sepsis Screen. General: Appears in no apparent distress, Behavior is appropriate for age, cooperative. Pain: Location: RLQ and back Pain currently is 7 out of 10 on a pain scale. Neurological: Level of Consciousness is awake, alert. Cardiovascular: Capillary refill < 3 seconds. Respiratory: Airway is patent Respiratory effort is even, unlabored, Respiratory pattern is regular, symmetrical. Derm: Skin is pink, warm & dry. Vital Signs: 11:24 BP 148 / 95; Pulse 93; Resp 18; Temp 97.0(O); Pulse Ox 96% on R/A; Weight 106.14 kg ct3 (R); Height 5 ft. 2 in. (157.48 cm) (R); Pain 6/10; 14:50 BP 172 / 91; Pulse 74; Resp 20; Temp 96.2; Pulse Ox 97% ; Pain 4/10; jam1 11:24 Body Mass Index 42.80 (106.14 kg, 157.48 cm) ct3 Vitals: 11:24 Log In Time: May 22, 2016 at 11:23. ct3 ED Course: 11:24 Patient visited by Natalia Coulter PCA. ct3 11:24 Anjel Cummings MD is Private Physician. ct3 11:24 Patient moved to Waiting ct3 11:25 Patient moved to Pre RCE ct3 11:30 Triage Initiated dls 13:13 Patient moved to Triage 1 mk4 13:15 Miles Martinez PA-C is PHCP. cc10 13:15 Hugo aVsquez MD is Attending Physician. cc10 13:27 Patient visited by Miles Martinez PA-C. cc10 13:27 Patient visited by Miles Martinez PA-C. cc10 13:35 Pao Perez,RN is Primary Nurse. ct3 13:35 Natalie Key, CARLOS ALBERTO is Primary Nurse. ct3 13:35 Patient moved to I4 / M4 ct3 13:44 Urinalysis Sent. ct3 13:44 Urine Culture Sent. ct3 14:02 Basic Metabolic Profile Sent. dsf 14:02 CBC with Diff Sent. dsf 14:02 Lipase Sent. dsf 14:02 Liver Profile Sent. dsf 14:03 Patient visited by Mayra Thomas,CARLOS ALBERTO. dsf 14:03 Inserted saline lock: 20 gauge in right antecubital area The patient tolerated the dsf procedure well. 14:23 CT ABD & PELVIS: No Contrast Returned. EDMS 14:31 Patient visited by Miles Martinez PA-C. cc10 15:07 Anjel Cummings MD is Referral Physician. cc10 15:12 The patient / caregiver is instructed regarding the plan of care and ED course. Patient dsf has correct armband on for positive identification. 15:13 Discontinued lock intact, bleeding controlled, pressure dressing applied, No dsf redness/swelling at site. No procedures done that require assistance. 05/23 12:51 T-Sheet-- Draft Copy was scanned into [employer] and attached to record. gb Administered Medications: 05/22 14:02 Drug: NS 0.9% 1000 ml [sodium chloride 0.9 % injection solution] Route: IV; Rate: dsf bolus; Site: right antecubital; 15:12 Follow up: IV Status: Completed infusion; IV Intake: 1000ml dsf 14:02 Drug: ketorolac 30 mg [ketorolac 30 mg/mL (1 mL) injection solution (1 mL)] Route: IVP; dsf Site: right antecubital; Intake: 15:12 IV: 1000.00ml; Total: 1000.00ml. dsf Order Results: Lab Order: Basic Metabolic Profile; SPEC'M 05/22/16 13:59 Test: GLUCOSE, FASTING; Value: 111; Range: 80-110; Abnormal: Above high normal; Units: MG/DL; Status: F Test: BLOOD UREA NITROGEN; Value: 13; Range: 7-18; Units: MG/DL; Status: F Test: CREATININE FOR GFR; Value: 0.87; Range: 0.55-1.02; Units: MG/DL; Status: F Test: GLOMERULAR FILTRATION RATE; Value: > 60.0; Range: >45; Status: F Test: SODIUM LEVEL; Value: 141; Range: 136-145; Units: MEQ/L; Status: F Test: POTASSIUM SERUM; Value: 3.9; Range: 3.5-5.1; Units: MEQ/L; Status: F Test: CHLORIDE LEVEL; Value: 105; Range: 98-107; Units: MEQ/L; Status: F Test: CARBON DIOXIDE LEVEL; Value: 27; Range: 21-32; Units: MEQ/L; Status: F Test: ANION GAP; Value: 9; Range: 8-16; Units: MEQ/L; Status: F Test: CALCIUM LEVEL; Value: 9.2; Range: 8.8-10.2; Units: MG/DL; Status: F Test Note: ; Units are mL/min/1.73 m2 Chronic Kidney Disease Staging per NKF: Stage I & II GFR >=60 Normal to Mildly Decreased Stage III GFR 30-59 Moderately Decreased Stage IV GFR 15-29 Severely Decreased Stage V GFR <15 Very Little GFR Left ESRD GFR <15 on MASS SPECTROMETRY MANAGER Lab Order: CBC with Diff; SPEC'M 05/22/16 13:59 Test: WHITE BLOOD COUNT; Value: 10.9; Range: 4.0-10.0; Abnormal: Above high normal; Units: K/mm3; Status: F Test: RED BLOOD COUNT; Value: 5.07; Range: 4.00-5.40; Units: M/mm3; Status: F Test: HEMOGLOBIN; Value: 15.4; Range: 12.0-16.0; Units: g/dl; Status: F Test: HEMATOCRIT; Value: 47.2; Range: 36.0-47.0; Abnormal: Above high normal; Units: %; Status: F Test: MEAN CORPUSCULAR VOLUME; Value: 93.0; Range: 80.0-96.0; Units: fl; Status: F Test: MEAN CORPUSCULAR HEMOGLOBIN; Value: 30.4; Range: 27.0-33.0; Units: pg; Status: F Test: MEAN CORPUSCULAR HGB CONC; Value: 32.7; Range: 32.0-36.5; Units: g/dl; Status: F Test: RED CELL DISTRIBUTION WIDTH; Value: 13.0; Range: 11.5-14.5; Units: %; Status: F Test: PLATELET COUNT, AUTOMATED; Value: 281; Range: 150-450; Units: k/mm3; Status: F Test: NEUTROPHILS %; Value: 68.6; Range: 36.0-66.0; Abnormal: Above high normal; Units: %; Status: F Test: LYMPH %; Value: 20.9; Range: 24.0-44.0; Abnormal: Below low normal; Units: %; Status: F Test: MONO %; Value: 7.0; Range: 0.0-5.0; Abnormal: Above high normal; Units: %; Status: F Test: EOS %; Value: 1.6; Range: 0.0-3.0; Units: %; Status: F Test: BASO %; Value: 0.4; Range: 0.0-1.0; Units: %; Status: F Test: LARGE UNSTAINED CELL %; Value: 1.5; Range: 0.0-4.0; Units: %; Status: F Test: NEUTROPHILS #; Value: 7.5; Range: 1.8-7.7; Units: K/mm3; Status: F Test: LYMPH #; Value: 2.5; Range: 1.5-4.5; Units: K/mm3; Status: F Test: MONO #; Value: 0.8; Range: 0.0-0.8; Units: K/mm3; Status: F Test: EOS #; Value: 0.2; Range: 0.0-0.50; Units: K/mm3; Status: F Test: BASO #; Value: 0.0; Range: 0.0-0.2; Units: K/mm3; Status: F Test: LARGE UNSTAINED CELL #; Value: 0.2; Range: 0.0-0.4; Units: K/mm3; Status: F Lab Order: Lipase; [facility] 05/22/16 13:59 Test: LIPASE; Value: 129; Range: 73-393; Units: U/L; Status: F Lab Order: Liver Profile; [facility] 05/22/16 13:59 Test: AST/SGOT; Value: 18; Range: 15-37; Units: U/L; Status: F Test: ALT/SGPT; Value: 36; Range: 12-78; Units: U/L; Status: F Test: ALKALINE PHOSPHATASE; Value: 69; Range: 45-117; Units: U/L; Status: F Test: BILIRUBIN,TOTAL; Value: 0.5; Range: 0.2-1.0; Units: MG/DL; Status: F Test: BILIRUBIN,DIRECT; Value: 0.1; Range: 0.0-0.2; Units: MG/DL; Status: F Test: TOTAL PROTEIN; Value: 7.4; Range: 6.4-8.2; Units: GM/DL; Status: F Test: ALBUMIN; Value: 3.8; Range: 3.2-5.2; Units: GM/DL; Status: F Test: ALBUMIN/GLOBULIN RATIO; Value: 1.06; Range: 1.00-1.93; Status: F Lab Order: Urinalysis; [facility] 05/22/16 13:38 Test: APPEARANCE, URINE; Value: CLEAR; Range: CLEAR; Status: F Test: COLOR, URINE; Value: STRAW; Range: YELLOW; Status: F Test: PH,URINE; Value: 6.0; Range: 5.0-9.0; Units: UNITS; Status: F Test: SPECIFIC GRAVITY URINE AUTO; Value: 1.004; Range: 1.002-1.035; Status: F Test: PROTEIN, URINE AUTO; Value: NEGATIVE; Range: NEGATIVE; Units: mg/dL; Status: F Test: GLUCOSE, URINE (UA) AUTO; Value: NEGATIVE; Range: NEGATIVE; Units: mg/dL; Status: F Test: KETONE, URINE AUTO; Value: NEGATIVE; Range: NEGATIVE; Units: mg/dL; Status: F Test: UROBILINOGEN, URINE AUTO; Value: 0.2; Range: 0.0-2.0; Units: mg/dL; Status: F Test: BILIRUBIN, URINE AUTO; Value: NEGATIVE; Range: NEGATIVE; Status: F Test: NITRITE, URINE AUTO; Value: NEGATIVE; Range: NEGATIVE; Status: F Test: LEUKOCYTE ESTERASE, URINE AUTO; Value: NEGATIVE; Range: NEGATIVE; Status: F Test: BLOOD, URINE BLOOD; Value: NEGATIVE; Range: NEGATIVE; Status: F Test: WBC, URINE AUTO; Value: 2; Range: 0-3; Units: /HPF; Status: F Test: RBC, URINE AUTO; Value: 2; Range: 0-3; Units: /HPF; Status: F Test: BACTERIA, URINE AUTO; Value: 1+; Range: NEGATIVE; Abnormal: Above high normal; Status: F Test: SQUAMOUS EPITHELIAL CELL UR AU; Value: 2; Range: 0-6; Units: /HPF; Status: F Test: HYALINE CAST, URINE AUTO; Value: 0; Range: 0-1; Units: /LPF; Status: F Lab Order: Urine Culture; SPEC'M 05/22/16 13:38 Test: URINE CULTURE; Value: <EXTERNAL COMMENT eCWMed> FULL REPORT IN LAB NOTES (eCW and Medent).; Status: F Test: URINE CULTURE; Value: ORGANISM 1: ESCHERICHIA COLI; Status: F Test: URINE CULTURE; Value: ESCHERICHIA COLI; Status: F Test: URINE CULTURE; Value: COLONY COUNT CFU/ml >100,000; Status: F Test: URINE CULTURE; Value: STREP AGALACTIAE GROUP B; Status: F Test: URINE CULTURE; Value: COLONY COUNT CFU/ml >100,000; Status: F Test: URINE CULTURE; Value: ORGANISM 2: STREP AGALACTIAE GROUP B; Status: F Test: URINE CULTURE; Value: ESCHERICHIA COLI; Status: F Test: URINE CULTURE; Value: COLONY COUNT CFU/ml >100,000; Status: F Test: URINE CULTURE; Value: STREP AGALACTIAE GROUP B; Status: F Test: URINE CULTURE; Value: COLONY COUNT CFU/ml >100,000; Status: F Test: URINE CULTURE; Value: GRAM NEG SENSI - VITEK 80; Status: F Test: URINE CULTURE; Value: Method: VIT2; Status: F Test: URINE CULTURE; Value: EXTD BRD SPCTRM BETA LACTAMASE -; Status: F Test: URINE CULTURE; Value: TRIMETHOPRIM/SULFAMETHOXAZOLE <=20 S; Status: F Test: URINE CULTURE; Value: AMPICILLIN 8 S; Status: F Test: URINE CULTURE; Value: GENTAMICIN <=1 S; Status: F Test: URINE CULTURE; Value: NITROFURANTOIN <=16 S; Status: F Test: URINE CULTURE; Value: CEFAZOLIN <=4 S; Status: F Test: URINE CULTURE; Value: LEVOFLOXACIN >=8 R; Status: F Test: URINE CULTURE; Value: TOBRAMYCIN <=1 S; Status: F Test: URINE CULTURE; Value: CEFTRIAXONE <=1 S; Status: F Test: URINE CULTURE; Value: CEFTAZIDIME <=1 S; Status: F Test: URINE CULTURE; Value: AMPICILLIN/SULBACTAM <=2 S; Status: F Test: URINE CULTURE; Value: PIPERACILLIN/TAZOBACTAM <=4 S; Status: F Test: URINE CULTURE; Value: AZTREONAM <=1 S; Status: F Test: URINE CULTURE; Value: ERTAPENEM <=0.5 S; Status: F Test: URINE CULTURE; Value: MEROPENEM <=0.25 S; Status: F Test: URINE CULTURE; Value: TIGECYCLINE <=0.5 S; Status: F Test: URINE CULTURE; Value: CEFEPIME <=1 S; Status: F Test: URINE CULTURE; Value: GRAM POS SENSI - ST02; Status: F Test: URINE CULTURE; Value: Method: VIT2; Status: F Test: URINE CULTURE; Value: ICR (INDUCIBLE CC RESISTANCE) +; Status: F Test: URINE CULTURE; Value: TETRACYCLINE >=16 R; Status: F Test: URINE CULTURE; Value: PENICILLIN G <=0.06 S; Status: F Test: URINE CULTURE; Value: TRIMETHOPRIM/SULFAMETHOXAZOLE <=10 S; Status: F Test: URINE CULTURE; Value: AMPICILLIN <=0.25 S; Status: F Test: URINE CULTURE; Value: ERYTHROMYCIN >=8 R; Status: F Test: URINE CULTURE; Value: LEVOFLOXACIN 1 S; Status: F Test: URINE CULTURE; Value: VANCOMYCIN 0.5 S; Status: F Test: URINE CULTURE; Value: MOXIFLOXACIN (AVELOX) 0.12 S; Status: F Test: URINE CULTURE; Value: CEFTRIAXONE <=0.12 S; Status: F Test: URINE CULTURE; Value: CEFOTAXIME <=0.12 S; Status: F Radiology Order: CT ABD & PELVIS: No Contrast Test: CT ABD & PELVIS: No Contrast REASON FOR EXAMINATION: Renal colic; Clinical: Renal colic.; ; Comparison: 03/21/2012.; ; Findings:; Lung bases are clear.; ; Liver, spleen, pancreas, bilateral adrenal glands and kidneys are normal. No; perinephric stranding, hydroureteronephrosis, intrarenal or obstructing ureteral; calculi are identified. The enteric system is without obstruction. Scattered; colonic and sigmoid diverticula noted without acute diverticulitis. While the; appendix appears mildly prominent, there is no appendiceal wall thickening or; periappendiceal stranding to suggest acute appendicitis. Fat containing ventral; hernia to the left of midline measures approximately 4 x 2.3 cm. No ascites. No; free air. No obvious adenopathy. Abdominal aorta without aneurysm. Surrounding; musculoskeletal structures demonstrate age-related changes without focal osseous; abnormality.; ; Impression:; 1. Normal appearance of the urinary tract system.; 2. Subtle prominence to the appendix without findings to suggest acute; appendicitis.; 3. A 4 cm fat containing left periumbilical/ventral hernia; ; ; Signed by; Vitor Yang MD 05/22/2016 01:59 P; Outcome: 15:07 Discharge ordered by Provider. cc10 15:12 Discharge Assessment: Patient awake, alert and oriented x 3. No cognitive and/or dsf functional deficits noted. Patient verbalized understanding of disposition instructions. patient administered narcotics - no. The following High Risk Discharge criteria are identified: None. Discharged to home ambulatory. Condition: stable. Discharge instructions given to patient, Instructed on discharge instructions, follow up and referral plans. medication usage, Demonstrated understanding of instructions, medications, Pt was receptive of discharge instructions/ teaching. Prescriptions given X 1. CT Study completed. Property sent home with patient. 15:13 Patient left the ED. dsf Signatures: Dispatcher [employer] EDMS Soniya Garcia, RN RN dls Norah Hernandez, OCCUPATIONAL THERAPIST AIDE OCCUPATIONAL THERAPIST AIDE jam1 Winifred Lind, Reg Reg Natalia Mcdaniels, OCCUPATIONAL THERAPIST AIDE OCCUPATIONAL THERAPIST AIDE ct3 Mayra Thomas,RN RN Alem Ulrich RN RN mk4 Miles Martinez, PA-C PA-C cc10 Chart Complete MTDD
== END 2016-05-22 15:13 | disposition home or self-care (01) ==
LOC: M ED 11:22
DX: R10.31 Right lower quadrant pain (principal); K42.9 Umbilical hernia without obstruction or gangrene; I10 Essential (primary) hypertension; J45.909 Unspecified asthma, uncomplicated; K21.9 Gastro-esophageal reflux disease without esophagitis; E66.9 Obesity, unspecified; E78.00 Pure hypercholesterolemia, unspecified; Z68.41 Body mass index [BMI] 40.0-44.9, adult; Z87.442 Personal history of urinary calculi; Z79.899 Other long term (current) drug therapy; Z79.82 Long term (current) use of aspirin; Z88.0 Allergy status to penicillin; Z88.2 Allergy status to sulfonamides
CPT/HCPCS: 74176; 80048; 80076; 81001; 83690; 85025; 87088; 87186; 96361; 96374; 99284; J1885

== ENCOUNTER → 2016-07-05 | Outpatient (CLI) | payer OTHER ==
[~2016-07-05] MED LIST changes: +ALLE180T33 PO; +ASPI1TAB PO; +BUSP1TAB PO; +CYCL5TA PO; +ESOM1CAP5 PO; +LEVO25TA5 PO; +OLME40TA PO; +PROBCAP4 PO; +SING10TA32 PO; +VITA200016 PO; +ZETI10TA2 PO
--- NOTE | 2016-07-06 05:23 | ECGEPIP ---
Stationary ECG Study [facility] Test Date: 2016-07-05 Pat Name: MERY CHAUDHARY Department: Room: - Gender: F Primary Operator: ZEKE : 1950 Requested By: Eagle Villegas Order Number: [id number] Reading MD: Fran Graham Measurements Intervals [place] Rate: 88 P: 66 TX: 156 QRS: -13 QRSD: 94 T: 42 QT: 359 QTc: 435 Interpretive Statements Normal sinus rhythm Leftward axis Delayed anterior R wave progression Nonspecific T wave abnormality No significant change when compared to prior tracing of 01/20/2012 Electronically Signed On 07-06-2016 5:23:32 EDT by Fran Graham
== END ==
LOC: M EKG 10:22
PROVIDERS: ATTEND Anesthesiology
DX: R03.0 Elevated blood-pressure reading, without diagnosis of hypertension (principal)

== ENCOUNTER → 2016-07-12 | Day surgery (SDC) | payer OTHER ==
[~2016-07-12] VITALS: Ht 157.5 cm; Wt 103.0 kg
[~2016-07-12] MED LIST changes: +BUPIVACAINE HCL 0.25% 30 ML VIAL As Ordered ONE; +GLYCOPYRROLATE INJ 0.2 MG/ML 2 ML VIAL As Ordered ONE; +KETOROLAC 30 MG/ML VIAL (J1885) IV PRN; +KETOROLAC 60 MG/2 ML VIAL (J1885) As Ordered ONE; +LIDOCAINE 1% SDV INJ 30 ML VIAL As Ordered ONE; +LIDOCAINE 2% INJ 100 MG/5 ML SDV (FOR ANES.) As Ordered ONE; +LR 1,000 ML IV SCH; +MEPERIDINE INJ 25 MG/ML VIAL (J2175) IV PRN; +METOCLOPRAMIDE INJ 10MG/2ML VIAL (J2765) IV PRN; +MIDAZOLAM INJ 2 MG/2 ML VIAL (J2250) As Ordered ONE; +NEOSTIGMINE 1MG/ML 5 ML SYRINGE (J2710) As Ordered ONE; +NORCO, ANEXSIA 5/325MG TABLET (HYDROcodone/ACETAMINOPHEN) PO PRN; +ONDANSETRON 4MG/2ML VIAL (J2405) As Ordered ONE; +ONDANSETRON 4MG/2ML VIAL (J2405) IV PRN; +PERCOCET 5MG/325MG TAB PO PRN; +PROPOFOL 200 MG/20 ML VIAL As Ordered ONE; +ROCURONIUM BROMIDE 50 MG/5 ML VIAL As Ordered ONE; +VANCOMYCIN 1000 MG/20 ML VIAL (J3370) As Ordered ONE; +VANCOMYCIN HCL 1,000 MG, VIAL MATE ADAPTER 1 EACH in D5W 250 ML IV ONE; +dexameTHASONE 4 MG/ML 1ML VIAL (J1100) As Ordered ONE; +fentaNYL 100 MCG/2 ML INJECTION (J3010) IV PRN; +fentaNYL 250 MCG/5 ML INJECTION (J3010) As Ordered ONE
[2016-07-12 15:30] VITALS: BP 123/71
--- NOTE | 2016-08-08 06:18 | RO ---
DATE OF PROCEDURE: 07/12/2016 PREOPERATIVE DIAGNOSIS: Incisional hernia. POSTOPERATIVE DIAGNOSIS: Incisional hernia. PROCEDURE PERFORMED: Robotic-assisted laparoscopic incisional hernia repair. SURGEON: Dr. Darrin Boateng. LEATHER BELT SHAPER: Marilyn Breaux NP. ANESTHESIA: General anesthesia. ESTIMATED BLOOD LOSS: Roughly 40 mL. COMPLICATIONS: None. DRAINS: None. REMARKS: Bleeding occurred along the course of the inferior epigastric artery over the right side. The artery was then ligated with #2-0 Vicryl. PROCEDURE NOTE: Ms. Mullins is a 66-year-old female who was found to have a hernia, most likely associated with previous cholecystectomy along her left side of her umbilicus. This was causing her discomfort. As she is symptomatic, she was advised repair. We chose a laparoscopic approach due to the anticipated size of the defect. We will use the [employer] robot platform to assess with the repair. The patient received Ancef preoperatively for prophylaxis. She was brought to the operating room, placed supine on the table. General endotracheal anesthesia started without any complication. Her abdomen prepped and draped in usual sterile fashion. After a surgical time-out, we began our surgery. Entry to the abdomen done through a small incision in the left lateral upper quadrant area. Veress needle was inserted. CO2 insufflation then started to a pressure of 15 mmHg. Using the same incision, a 12 mm Visiport was placed under direct vision of the laparoscope. She was then placed in slight right lateral decubitus position to create space for us to work along the left side of her abdomen in similar line where we had our initial incision. Two working ports were placed, the 8 mm camera port and an 8.5 mm working port. The WITOIi robot tower was maneuvered in place to center on the hernia defect. The trocars docked to the robot. I unscrubbed to control of the robot at the surgeon's console. On entry, the area had some omentum stuck into the wall of the hernia. This was reduced both with Bovie cautery as well as with outside manual palpation by my assistant professor of communication. After reducing the contents, the hernia was noted to have three adhered cavities in a typical belgian cheese appearance. The three different hernia defects was opened up into a single defect. The hernia sac dissected free from the abdominal wall. The surrounding fascia was further freed up by preperitoneal dissection to allow for fascial closure. After checking for hemostasis, the defect amounts to about 4.5 x 4.5 cm. The fascial defect was closed using #0 V-Loc in a running fashion while putting down the pressure to as low as 8 mmHg. We came up to about 12 mmHg. The 15 x 10 cm ventral light polypropylene mesh with Seprafilm covering on one side was chosen. This was placed into the abdomen centered along the previously repaired hernia defect. The balloon tail was lifted outside of the abdomen and the balloon inflated to fix this in place and the mesh was then secured into the abdominal wall with a running suture of #0 V-Loc towards the right lateral side. We had some bleeding secondary to either part of the inferior epigastric artery. This decreased by holding pressure but it was forming a hematoma above the peritoneum. I then used stitch #2-0 Vicryl stitch to ligate the course of the inferior epigastric artery with resulting stoppage of the bleeding. I continued then to secure the mesh onto the abdominal wall circumferentially. After doing so, we came back onto the previous site of bleeding. No further bleeding or enlargement of the hematoma found. We visualized the abdomen for any inadvertent injury and none was found. The previously dissected hernia sac was removed. The abdomen was then deflated. All ports were removed. The 12 mm fascial defect repaired with #0 Vicryl in a mattress fashion. All skin incisions closed with #4-0 Monocryl in subcuticular fashion. Steri-Strips and gauze dressings then placed. The patient then promptly awakened, extubated, brought to recovery room stable.
== END | disposition home or self-care (01) ==
LOC: M SDC 07:34
PROVIDERS: ATTEND Surgery
DX: K43.2 Incisional hernia without obstruction or gangrene (principal); I10 Essential (primary) hypertension; E78.5 Hyperlipidemia, unspecified; J30.9 Allergic rhinitis, unspecified; J45.909 Unspecified asthma, uncomplicated; F41.9 Anxiety disorder, unspecified; G25.81 Restless legs syndrome; K44.9 Diaphragmatic hernia without obstruction or gangrene; E03.9 Hypothyroidism, unspecified; K21.9 Gastro-esophageal reflux disease without esophagitis; J01.80 Other acute sinusitis; Z88.0 Allergy status to penicillin; Z88.1 Allergy status to other antibiotic agents; Z88.2 Allergy status to sulfonamides; Z91.09 Other allergy status, other than to drugs and biological substances; Z79.899 Other long term (current) drug therapy; Z79.82 Long term (current) use of aspirin; Z90.710 Acquired absence of both cervix and uterus; Z87.81 Personal history of (healed) traumatic fracture; Z78.0 Asymptomatic menopausal state; Z98.51 Tubal ligation status
CPT/HCPCS: 49654; C1781; J1100; J1885; J2250; J2405; J2710; J3010; J3370

== ENCOUNTER → 2016-08-28 | Outpatient (REF) | payer OTHER ==
[~2016-08-28] MED LIST changes: -BUPIVACAINE HCL 0.25% 30 ML VIAL As Ordered ONE; -GLYCOPYRROLATE INJ 0.2 MG/ML 2 ML VIAL As Ordered ONE; -KETOROLAC 30 MG/ML VIAL (J1885) IV PRN; -KETOROLAC 60 MG/2 ML VIAL (J1885) As Ordered ONE; -LIDOCAINE 1% SDV INJ 30 ML VIAL As Ordered ONE; -LIDOCAINE 2% INJ 100 MG/5 ML SDV (FOR ANES.) As Ordered ONE; -LR 1,000 ML IV SCH; -MEPERIDINE INJ 25 MG/ML VIAL (J2175) IV PRN; -METOCLOPRAMIDE INJ 10MG/2ML VIAL (J2765) IV PRN; -MIDAZOLAM INJ 2 MG/2 ML VIAL (J2250) As Ordered ONE; -NEOSTIGMINE 1MG/ML 5 ML SYRINGE (J2710) As Ordered ONE; -NORCO, ANEXSIA 5/325MG TABLET (HYDROcodone/ACETAMINOPHEN) PO PRN; -ONDANSETRON 4MG/2ML VIAL (J2405) As Ordered ONE; -ONDANSETRON 4MG/2ML VIAL (J2405) IV PRN; -PERCOCET 5MG/325MG TAB PO PRN; -PROPOFOL 200 MG/20 ML VIAL As Ordered ONE; -ROCURONIUM BROMIDE 50 MG/5 ML VIAL As Ordered ONE; -VANCOMYCIN 1000 MG/20 ML VIAL (J3370) As Ordered ONE; -VANCOMYCIN HCL 1,000 MG, VIAL MATE ADAPTER 1 EACH in D5W 250 ML IV ONE; -dexameTHASONE 4 MG/ML 1ML VIAL (J1100) As Ordered ONE; -fentaNYL 100 MCG/2 ML INJECTION (J3010) IV PRN; -fentaNYL 250 MCG/5 ML INJECTION (J3010) As Ordered ONE
== END ==
LOC: CANPREREF → M SFHCPLAZ 11:35
PROVIDERS: ATTEND Family Medicine
DX: E55.9 Vitamin D deficiency, unspecified (principal); Z53.9 Procedure and treatment not carried out, unspecified reason

== ENCOUNTER → 2016-09-12 | Outpatient (CLI) | payer OTHER | LOC: M LAB 13:41 | PROVIDERS: ATTEND Family Medicine | DX: E55.9 Vitamin D deficiency, unspecified (principal) ==

== ENCOUNTER → 2016-12-26 | Outpatient (CLI) | payer OTHER ==
[~2016-12-26] MED LIST changes: -CYCL5TA PO; +CYCL5TAB PO; -ZETI10TA2 PO; +ZETI10TA30 PO
== END ==
LOC: M LAB 16:07
PROVIDERS: ATTEND Psychiatry & Neurology Neurology
DX: G25.81 Restless legs syndrome (principal)

== ENCOUNTER → 2017-05-19 | Outpatient (REF) | payer MEDICARE, OTHER ==
[2017-05-19 16:20] LABS: FREE T4 0.87 NG/DL (0.76-1.46)
== END ==
LOC: M SFHCLERA 12:55
DX: E03.9 Hypothyroidism, unspecified (principal)
CPT/HCPCS: 84443

== ENCOUNTER → 2017-11-21 | Outpatient (REF) | payer MEDICARE, OTHER ==
[2017-11-23 00:07] LABS: H PYLORI STOOL ANTIGEN Negative (Negative)
== END ==
LOC: M SFHCPLAZ 13:42
DX: R07.89 Other chest pain (principal)
CPT/HCPCS: 87338

== ENCOUNTER → 2018-02-27 | Outpatient (CLI) | payer MEDICARE, OTHER | LOC: M WHC 13:37 | DX: Z13.820 Encounter for screening for osteoporosis (principal); M85.851 Other specified disorders of bone density and structure, right thigh; M85.852 Other specified disorders of bone density and structure, left thigh; M85.88 Other specified disorders of bone density and structure, other site | CPT/HCPCS: 77080 ==

== ENCOUNTER → 2018-05-21 | Outpatient (CLI) | payer MEDICARE, OTHER ==
[2018-05-21 16:54] LABS: MAGNESIUM LEVEL 2.3 MG/DL (1.8-2.4)
[2018-05-21 17:07] LABS: TOTAL 25(OH) VITAMIN D 29.7 NG/ML (30.0-100.0)
== END ==
LOC: M LRY 10:40
PROVIDERS: ATTEND Internal Medicine Gastroenterology
DX: R07.9 Chest pain, unspecified (principal); K21.9 Gastro-esophageal reflux disease without esophagitis; K44.9 Diaphragmatic hernia without obstruction or gangrene; E83.40 Disorders of magnesium metabolism, unspecified; E55.9 Vitamin D deficiency, unspecified; Z79.899 Other long term (current) drug therapy

== ENCOUNTER 2018-07-21 14:16 | Emergency (ER) | payer MEDICARE, OTHER ==
[~2018-07-21] VITALS: Ht 160 cm; Wt 108.2 kg
[~2018-07-21 14:16] MED LIST changes: -/ESOM40CA PO; -ASPI1TAB PO; +ASPI81TA26 PO; +NEXI1CAP3 PO
[2018-07-21] MEDS ORDERED: IPRATROPIUM 0.5MG/ALBUTEROL 2.5MG INH SOL UD 3ML (DUONEB)(J7620) NEB ONE (14:45)
[2018-07-21] MEDS ORDERED: methylPREDNISolone INJ 125 MG/2 ML VIAL (J2930) IV ONE (14:45)
[2018-07-21 15:14] LABS: BASO % 0.4 % (0.0-1.0); HEMATOCRIT 46.1 % (36.0-47.0); HEMOGLOBIN 15.7 g/dl (12.0-15.5); LYMPH # 1.7 10^3/uL (1.5-4.5); LYMPH % 16.1 % (24.0-44.0); MEAN CORPUSCULAR HEMOGLOBIN 31.1 pg (27.0-33.0); MEAN CORPUSCULAR HGB CONC 34.1 g/dl (32.0-36.5); MEAN CORPUSCULAR VOLUME 91.3 fl (80.0-96.0); MONO # 0.6 10^3/uL (0.0-0.8); MONO % 5.3 % (0.0-5.0); NEUTROPHILS # 8.2 10^3/uL (1.8-7.7); NEUTROPHILS % 77.6 % (36.0-66.0); PLATELET COUNT, AUTOMATED 287 10^3/uL (150-450); RED BLOOD COUNT 5.05 10^6/uL (4.00-5.40); WHITE BLOOD COUNT 10.5 10^3/uL (4.0-10.0)
[2018-07-21] MEDS ORDERED: guaiFENesin/CODEINE SYRUP 5 ML UDC PO ONE (15:30)
[2018-07-21 15:51] LABS: BLOOD UREA NITROGEN 18 MG/DL (7-18); CALCIUM LEVEL 9.4 MG/DL (8.8-10.2); CARBON DIOXIDE LEVEL 22 MEQ/L (21-32); CHLORIDE LEVEL 109 MEQ/L (98-107); CPK CREATINE PHOSPHOKINASE 97 U/L (26-192); CREATININE FOR GFR 0.92 MG/DL (0.55-1.30); GLOMERULAR FILTRATION RATE > 60.0 (>45); GLUCOSE, FASTING 118 MG/DL (70-100); MB/CK RELATIVE INDEX 1.34 (< OR =4); POTASSIUM SERUM 4.5 MEQ/L (3.5-5.1); SODIUM LEVEL 141 MEQ/L (136-145); TROPONIN I < 0.02 NG/ML (< 0.10)
[2018-07-21] MEDS: LEVALBUTEROL 1.25 MG/0.5 ML CONCENTRATE NEB INH SCH ×2 (15:53→16:23)
[2018-07-21] MEDS: IPRATROPIUM 0.02% SOLN 0.5MG/2.5 ML NEB INH PRN ×2 (15:53→16:23)
[2018-07-21] MEDS ORDERED: BENI40TA26 PO (16:03)
[2018-07-21] MEDS ORDERED: NEXI40CA PO (16:03)
[2018-07-21] MEDS ORDERED: GABA-1171 PO (16:03)
[2018-07-21] MEDS ORDERED: NS 1,000 ML IV ONE (16:15)
[2018-07-21] MEDS ORDERED: MAG SULF 1GM/100ML (MAG RUN) 1 GM in APPROPRIATE DILUENT 1 EA IV ONE ×2 (16:30→17:30)
[2018-07-21 17:45] VITALS: BP 153/69
[2018-07-21] MEDS ORDERED: PRED10TA2 PO (17:46)
--- NOTE | 2018-07-21 19:29 | ECGEPIP ---
Stationary ECG Study [facility] - ED Test Date: 2018-07-21 Pat Name: MERY CHAUDHARY Department: Room: - Gender: F Overhead Crane Operator: viki : 1950 Requested By: Mikala Benítez PA-C Order Number: [id number] Reading MD: Christophe Adler Measurements Intervals [place] Rate: 116 P: 56 VT: 160 QRS: -50 QRSD: 85 T: 56 QT: 296 QTc: 411 Interpretive Statements SINUS TACHYCARDIA LEFT AXIS DEVIATION LEFT ANTERIOR FASCICULAR BLOCK POSSIBLE ANTERIOR MYOCARDIAL INFARCTION, OF INDETERMINATE AGE SIMILAR TO 07/05/16 Electronically Signed On 07-21-2018 19:29:00 EDT by Christophe Adler
--- NOTE | 2018-07-22 09:34 | REP ---
Chest x-ray: Two views. History: Dyspnea and cough. Comparison study: August 10, 2013. Findings: The lungs are symmetrically aerated and free of infiltrate. Pleural angles are sharp. Heart size is normal. Pulmonary vasculature is not increased. The aorta somewhat tortuous. Impression: No acute disease. Electronically Signed by Marty Ricardo MD 07/21/2018 03:13 P
== END 2018-07-21 17:58 | disposition home or self-care (01) ==
LOC: M ED 14:16
DX: J45.901 Unspecified asthma with (acute) exacerbation (principal); J20.9 Acute bronchitis, unspecified; J09.X2 Influenza due to identified novel influenza A virus with other respiratory manifestations; R94.31 Abnormal electrocardiogram [ECG] [EKG]; I10 Essential (primary) hypertension; E78.5 Hyperlipidemia, unspecified; E03.9 Hypothyroidism, unspecified; G47.30 Sleep apnea, unspecified; K21.9 Gastro-esophageal reflux disease without esophagitis; M54.9 Dorsalgia, unspecified; G89.29 Other chronic pain; Z88.0 Allergy status to penicillin; Z88.1 Allergy status to other antibiotic agents; Z88.2 Allergy status to sulfonamides; Z79.899 Other long term (current) drug therapy; Z79.82 Long term (current) use of aspirin
CPT/HCPCS: 71046; 80048; 82550; 82553; 84484; 85025; 87486; 87581; 87633; 87798; 93005; 94640; 94760; 96365; 96375; 99284; J2930; J3475

== ENCOUNTER → 2019-01-07 | Outpatient (REF) | payer MEDICARE, OTHER ==
[~2019-01-07] MED LIST changes: +BENI40TA26 PO; +GABA-1171 PO; +NEXI40CA PO; +PRED10TA2 PO; +ZETI10TA16 PO; -ZETI10TA30 PO
[2019-01-07 19:54] LABS: ALBUMIN 3.6 GM/DL (3.2-5.2); ALT/SGPT 44 U/L (12-78); BILIRUBIN,TOTAL 0.8 MG/DL (0.2-1.0); BLOOD UREA NITROGEN 13 MG/DL (7-18); CALCIUM LEVEL 9.2 MG/DL (8.8-10.2); CARBON DIOXIDE LEVEL 30 MEQ/L (21-32); CHLORIDE LEVEL 104 MEQ/L (98-107); CHOLESTEROL LEVEL 210 MG/DL (<200); CHOLESTEROL RISK RATIO 2.916 (<5); CREATININE FOR GFR 0.86 MG/DL (0.55-1.30); GLOMERULAR FILTRATION RATE > 60.0 (>45); GLUCOSE, FASTING 66 MG/DL (70-100); HDL CHOLESTEROL 72 MG/DL (>40); LDL CHOLESTEROL 97 MG/DL (<100); NON-HDL-C 138 MG/DL; POTASSIUM SERUM 4.8 MEQ/L (3.5-5.1); SODIUM LEVEL 142 MEQ/L (136-145); TOTAL PROTEIN 6.7 GM/DL (6.4-8.2); TRIGLYCERIDES LEVEL 206 MG/DL (<150)
== END ==
LOC: M SFHCPLAZ 13:21
PROVIDERS: ATTEND Family Medicine
DX: E78.5 Hyperlipidemia, unspecified (principal); I10 Essential (primary) hypertension; E03.9 Hypothyroidism, unspecified; E55.9 Vitamin D deficiency, unspecified

== ENCOUNTER → 2019-01-07 | Outpatient (REF) | payer MEDICARE, OTHER | LOC: M LAB REF 16:41 | PROVIDERS: ATTEND Internal Medicine Gastroenterology | DX: E55.9 Vitamin D deficiency, unspecified (principal) ==

== ENCOUNTER → 2019-02-14 | Outpatient (REF) | payer MEDICARE, OTHER ==
[2019-02-14 21:38] LABS: APPEARANCE, URINE HAZY (CLEAR); BACTERIA, URINE AUTO NEGATIVE (NEGATIVE); BILIRUBIN, URINE AUTO NEGATIVE (NEGATIVE); BLOOD, URINE BLOOD 3+ (NEGATIVE); COLOR, URINE YELLOW (YELLOW); GLUCOSE, URINE (UA) AUTO NEGATIVE (NEGATIVE); KETONE, URINE AUTO NEGATIVE (NEGATIVE); LEUKOCYTE ESTERASE, URINE AUTO 1+ (NEGATIVE); MUCUS, URINE SMALL (NEGATIVE); NITRITE, URINE AUTO NEGATIVE (NEGATIVE); PROTEIN, URINE AUTO NEGATIVE (NEGATIVE); RBC, URINE AUTO 126 /HPF (0-3); SPECIFIC GRAVITY URINE AUTO 1.017 (1.002-1.035); SQUAMOUS EPITHELIAL CELL UR AU 0 /HPF (0-6); UROBILINOGEN, URINE AUTO 0.2 mg/dL (0.0-2.0); WBC, URINE AUTO 96 /HPF (0-3)
== END ==
LOC: M LAB REF 11:08
PROVIDERS: ATTEND Physician Assistant
DX: N39.0 Urinary tract infection, site not specified (principal)

== ENCOUNTER → 2019-07-29 | Outpatient (REF) | payer MEDICARE, OTHER ==
[2019-07-29 17:01] LABS: ALBUMIN 3.8 GM/DL (3.2-5.2); ALT/SGPT 32 U/L (12-78); BILIRUBIN,TOTAL 0.5 MG/DL (0.2-1.0); BLOOD UREA NITROGEN 14 MG/DL (7-18); CALCIUM LEVEL 9.4 MG/DL (8.8-10.2); CARBON DIOXIDE LEVEL 30 MEQ/L (21-32); CHLORIDE LEVEL 105 MEQ/L (98-107); CHOLESTEROL LEVEL 214 MG/DL (<200); CHOLESTEROL RISK RATIO 3.566 (<5); CREATININE FOR GFR 0.84 MG/DL (0.55-1.30); GLOMERULAR FILTRATION RATE > 60.0 (>45); GLUCOSE, FASTING 101 MG/DL (70-100); HDL CHOLESTEROL 60 MG/DL (>40); LDL CHOLESTEROL 123 MG/DL (<100); NON-HDL-C 154 MG/DL; POTASSIUM SERUM 4.9 MEQ/L (3.5-5.1); SODIUM LEVEL 139 MEQ/L (136-145); TRIGLYCERIDES LEVEL 156 MG/DL (<150)
[2019-07-29 17:08] LABS: MALB URINE SIEMENS 8.3 MG/L; MAU/CREAT RATIO 5.6 MCG/MG (0.0-30.0)
== END ==
LOC: M SFHCPLAZ 11:11
PROVIDERS: ATTEND Family Medicine
DX: E78.5 Hyperlipidemia, unspecified (principal); I10 Essential (primary) hypertension; E03.9 Hypothyroidism, unspecified

== ENCOUNTER → 2019-12-10 | Outpatient (CLI) | payer MEDICARE, OTHER ==
[~2019-12-10] MED LIST changes: +ESOM40CA35; +GABA-843; +MONT10TA4; +OLME40TA; +PRIM50TA6
== END ==
LOC: M LRY 11:18
PROVIDERS: ATTEND Student in an Organized Health Care Education/Training Program
DX: G25.81 Restless legs syndrome (principal); Z79.82 Long term (current) use of aspirin; Z79.899 Other long term (current) drug therapy

== ENCOUNTER 2020-01-29 09:55 | Emergency (ER) | payer MEDICARE, OTHER ==
[~2020-01-29] VITALS: Ht 157.5 cm; Wt 99.3 kg
[~2020-01-29 09:55] MED LIST changes: -ESOM40CA35; -GABA-843; -MONT10TA4; -OLME40TA; -PRIM50TA6
[2020-01-29] MEDS ORDERED: ESOM40CA35 (10:10)
[2020-01-29] MEDS ORDERED: OLME40TA (10:10)
[2020-01-29] MEDS ORDERED: GABA-843 (10:10)
[2020-01-29] MEDS ORDERED: MONT10TA4 (10:10)
[2020-01-29] MEDS ORDERED: PRIM50TA6 (10:10)
[2020-01-29] MEDS ORDERED: ONDANSETRON 4MG/2ML VIAL IV ONE (11:30)
[2020-01-29] MEDS ORDERED: NS 1,000 ML IV ONE (11:30)
[2020-01-29] MEDS ORDERED: MORPHINE 4 MG/ML 1ML VIAL/SYRINGE (J2270) IV ONE (11:30)
[2020-01-29] MEDS ORDERED: ISOVUE-370 76% 100ML VIAL As Ordered ONE (12:06)
[2020-01-29 12:17] LABS: BASO % 0.3 % (0.0-1.0); EOS % 0.1 % (0.0-3.0); HEMATOCRIT 46.8 % (36.0-47.0); HEMOGLOBIN 15.2 g/dl (12.0-15.5); LYMPH # 0.4 10^3/uL (1.5-5.0); LYMPH % 3.2 % (24.0-44.0); MEAN CORPUSCULAR HEMOGLOBIN 30.4 pg (27.0-33.0); MEAN CORPUSCULAR HGB CONC 32.5 g/dl (32.0-36.5); MEAN CORPUSCULAR VOLUME 93.6 fl (80.0-96.0); MONO % 7.7 % (0.0-5.0); NEUTROPHILS # 11.4 10^3/uL (1.5-8.5); PLATELET COUNT, AUTOMATED 267 10^3/uL (150-450)
[2020-01-29 12:28] LABS: PROTHROMBIN TIME 13.4 SECONDS (12.5-14.3)
[2020-01-29 12:29] LABS: PARTIAL THROMBOPLASTIN TIME 29.1 SECONDS (24.2-38.5)
--- NOTE | 2020-01-29 12:45 | REPVR ---
PROCEDURE INFORMATION: Exam: CT Abdomen And Pelvis With Contrast Exam date and time: 01/29/2020 11:20 AM Age: 69 years old Clinical indication: Abdominal pain; Additional info: Upper abdominal pain TECHNIQUE: Imaging protocol: Computed tomography of the abdomen and pelvis with intravenous contrast. Radiation optimization: All CT scans at this facility use at least one of these dose optimization techniques: automated exposure control; mA and/or kV adjustment per patient size (includes targeted exams where dose is matched to clinical indication); or iterative reconstruction. Contrast material: ISOVUE 370; Contrast volume: 100 ml; Contrast route: INTRAVENOUS (IV); COMPARISON: CT ABD PELVIS W/O CONTRAST 05/22/2016 1:39 PM FINDINGS: Lungs: There are bilateral emphysematous changes. There is bibasilar atelectasis. Liver: There is a 2.8 cm cyst within the left hepatic lobe. Gallbladder and bile ducts: The patient is status post cholecystectomy. There is significant intra and extrahepatic biliary dilatation. The distal common bile duct measures 1.4 cm. There is question of a filling defect within the distal common bile duct, poorly characterized on this exam. There is moderate induration surrounding the inferior vena cava and between the IVC and aorta. The head of the pancreas is well defined, therefore pancreatitis is unlikely. Pancreas: See "Gallbladder and bile ducts" finding. Spleen: Normal. No splenomegaly. Adrenals: Normal. No mass. Kidneys and ureters: There are low density lesions in both kidneys, likely cysts, but some are not fully characterized on this exam. Stomach and bowel: There is diverticulosis. Appendix: The appendix is visualized and normal in appearance. Intraperitoneal space: Unremarkable. No free air. No significant fluid collection. Vasculature: There are calcified atherosclerotic changes of the aorta. Lymph nodes: There are scattered borderline enlarged retroperitoneal lymph nodes. Urinary bladder: Unremarkable as visualized. Reproductive: The patient is status post hysterectomy. Bones/joints: Unremarkable. No acute fracture. Soft tissues: There is a 1 cm nodular density in the left breast. IMPRESSION: 1. There is significant intra and extrahepatic biliary dilatation. The distal common bile duct measures 1.4 cm. There is question of a filling defect within the distal common bile duct, poorly characterized on this exam. There is moderate induration surrounding the inferior vena cava and between the IVC and aorta. The head of the pancreas is well defined, therefore pancreatitis is unlikely. An obstructing lesion or a distal common bile duct stenosis cannot be excluded. GI consultation and MRCP are recommended. 2. There is a 2.8 cm cyst within the left hepatic lobe. 3. There are scattered borderline enlarged retroperitoneal lymph nodes. 4. There is a 1 cm nodular density in the left breast. Breast physical examination and mammography is recommended if this has not been performed recently Electronically signed by: Edvin Castañeda On 01/29/2020 12:45:42 PM
[2020-01-29 12:48] LABS: ALBUMIN 3.8 GM/DL (3.2-5.2); ALT/SGPT 671 U/L (12-78); BILIRUBIN,DIRECT 7.1 MG/DL (0.0-0.2); BILIRUBIN,TOTAL 8.3 MG/DL (0.2-1.0); CK-MB VALUE MASS < 1.0 NG/ML (<3.6); CPK CREATINE PHOSPHOKINASE 59 U/L (26-192); LIPASE 54 U/L (73-393); MB/CK RELATIVE INDEX 1.69 (< OR =4); TOTAL PROTEIN 7.2 GM/DL (6.4-8.2); TROPONIN I < 0.02 NG/ML (< 0.10)
[2020-01-29] MEDS ORDERED: NS 1,000 ML IV SCH (14:15)
[2020-01-29] MEDS ORDERED: MORPHINE 4 MG/ML 1ML VIAL/SYRINGE (J2270) IV PRN (14:30)
[2020-01-29 16:25] VITALS: BP 109/73
--- NOTE | 2020-01-30 20:16 | ECGEPIP ---
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
--- NOTE | 2020-01-31 10:18 | ED PDOC ---
Post-Departure Follow-Up dr callahan faxed formal report of ct abd/p for fu Hugo Hood MD Jan 31, 2020 10:18
== END 2020-01-29 16:29 | disposition short-term general hospital (02) ==
LOC: M ED 09:55
DX: K83.1 Obstruction of bile duct (principal); K83.8 Other specified diseases of biliary tract; K76.89 Other specified diseases of liver; N63.20 Unspecified lump in the left breast, unspecified quadrant; Z20.828 Contact with and (suspected) exposure to other viral communicable diseases; I44.4 Left anterior fascicular block; R59.0 Localized enlarged lymph nodes; I10 Essential (primary) hypertension; E78.5 Hyperlipidemia, unspecified; Z88.0 Allergy status to penicillin; Z88.1 Allergy status to other antibiotic agents; Z88.2 Allergy status to sulfonamides; Z88.8 Allergy status to other drugs, medicaments and biological substances; Z79.82 Long term (current) use of aspirin; Z79.899 Other long term (current) drug therapy
CPT/HCPCS: 74177; 80047; 80076; 82550; 82553; 83605; 83690; 84484; 85025; 85610; 85730; 93005; 96361; 96374; 96375; 96376; 99285; J2270; J2405; Q9967; U0002

== ENCOUNTER → 2020-05-06 | Outpatient (REF) | payer MEDICARE, OTHER ==
[~2020-05-06] MED LIST changes: +ESOM40CA35; +GABA-282; +MONT5TAB2; +OLME40TA; +PRIM50TA6
== END ==
LOC: M LAB REF 16:26
PROVIDERS: ATTEND Physician Assistant
DX: N39.0 Urinary tract infection, site not specified (principal)

== ENCOUNTER → 2020-06-01 | Outpatient (CLI) | payer MEDICARE, OTHER ==
[~2020-06-01] MED LIST changes: +MONT10TA10; -MONT5TAB2
--- NOTE | 2020-06-01 14:54 | REPPI ---
INDICATION: M54.2 NECK PAIN ON RIGHT SIDE M25.511 RIGHT SHOULDER PAIN. COMPARISON: None. TECHNIQUE: Three views of the right shoulder are obtained. FINDINGS: The right glenohumeral and acromioclavicular joints are normally aligned. There is osteoarthritic spurring at the AC joint and mild inferior glenoid spurring is seen. There is mild diffuse osteopenia. There appears to be an old healed rib fracture of the right 2nd rib. No bony destructive lesion is seen. Periarticular soft tissues are unremarkable. IMPRESSION: Mild osteoarthritis of the AC joint and glenohumeral articulation. Diffuse osteopenia. Dextroconvex thoracic spine curvature. Otherwise negative. <Electronically signed by Hugo Ricarod > 06/01/20 0113
--- NOTE | 2020-06-01 14:57 | REPPI ---
INDICATION: M54.2 NECK PAIN ON RIGHT SIDE. COMPARISON: None. TECHNIQUE: Nine views.. FINDINGS: Lateral views done in flexion, extension, and neutral position demonstrate normal alignment. Vertebral body heights are preserved. No subluxation or instability is seen. There is degenerative disc narrowing and anterior osteophyte formation, mild degree at the C 3 4 through C6-7 disc levels. Prevertebral soft tissues are unremarkable. There is mild neural foraminal narrowing on the right at C3-4 and C4-5 due to uncovertebral spurring. On the left there is uncovertebral spurring at C4-5 C5-6 and C6-7. There is a dystrophic calcification in the dorsal extra-spinal soft tissues. Open mouth odontoid view and AP views are remarkable only for osteoarthritic facet hypertrophy. IMPRESSION: Degenerative disc and facet changes as noted above. Mild bilateral neural foraminal narrowing. <Electronically signed by Hugo Ricardo > 06/01/20 [id number]
== END ==
LOC: M PLAIMG 14:07
PROVIDERS: ATTEND Physician Assistant
DX: M50.31 Other cervical disc degeneration, high cervical region (principal); M50.321 Other cervical disc degeneration at C4-C5 level; M50.322 Other cervical disc degeneration at C5-C6 level; M50.323 Other cervical disc degeneration at C6-C7 level; M19.011 Primary osteoarthritis, right shoulder; M25.511 Pain in right shoulder

== ENCOUNTER → 2020-07-05 | Outpatient (REF) | payer MEDICARE, OTHER ==
[2020-07-05 16:09] LABS: ALBUMIN 3.9 GM/DL (3.2-5.2); ALT/SGPT 35 U/L (12-78); BILIRUBIN,TOTAL 0.4 MG/DL (0.2-1.0); BLOOD UREA NITROGEN 15 MG/DL (7-18); CALCIUM LEVEL 9.3 MG/DL (8.8-10.2); CARBON DIOXIDE LEVEL 29 MEQ/L (21-32); CHLORIDE LEVEL 105 MEQ/L (98-107); CHOLESTEROL LEVEL 212 MG/DL (<200); CHOLESTEROL RISK RATIO 3.419 (<5); CREATININE FOR GFR 0.77 MG/DL (0.55-1.30); GLOMERULAR FILTRATION RATE > 60.0 (>45); GLUCOSE, FASTING 108 MG/DL (70-100); HDL CHOLESTEROL 62 MG/DL (>40); LDL CHOLESTEROL 122 MG/DL (<100); NON-HDL-C 150 MG/DL; POTASSIUM SERUM 4.9 MEQ/L (3.5-5.1); SODIUM LEVEL 139 MEQ/L (136-145); TOTAL PROTEIN 6.8 GM/DL (6.4-8.2); TRIGLYCERIDES LEVEL 141 MG/DL (<150)
[2020-07-05 16:10] LABS: TOTAL 25(OH) VITAMIN D 42.7 NG/ML (30.0-100.0)
== END ==
LOC: M PLALAB 11:03
PROVIDERS: ATTEND Family Medicine
DX: I10 Essential (primary) hypertension (principal); E78.5 Hyperlipidemia, unspecified; E55.9 Vitamin D deficiency, unspecified; E03.9 Hypothyroidism, unspecified

== ENCOUNTER → 2020-08-04 | Outpatient (REF) | payer MEDICARE, OTHER ==
[2020-08-04 17:48] LABS: BLOOD UREA NITROGEN 11 MG/DL (7-18); CARBON DIOXIDE LEVEL 32 MEQ/L (21-32); CHLORIDE LEVEL 108 MEQ/L (98-107); CREATININE FOR GFR 0.64 MG/DL (0.55-1.30); GLOMERULAR FILTRATION RATE > 60.0 (>45); GLUCOSE, FASTING 92 MG/DL (70-100); POTASSIUM SERUM 4.4 MEQ/L (3.5-5.1); SODIUM LEVEL 141 MEQ/L (136-145)
== END ==
LOC: M PLALAB 14:46
PROVIDERS: ATTEND Family Medicine
DX: M19.90 Unspecified osteoarthritis, unspecified site (principal); R73.01 Impaired fasting glucose; G25.81 Restless legs syndrome

== ENCOUNTER → 2020-09-14 | Outpatient (REF) | payer MEDICARE, OTHER ==
[2020-09-14 18:38] LABS: APPEARANCE, URINE CLOUDY (CLEAR); BACTERIA, URINE AUTO 1+ (NEGATIVE); BILIRUBIN, URINE AUTO NEGATIVE (NEGATIVE); BLOOD, URINE BLOOD 1+ (NEGATIVE); COLOR, URINE YELLOW (YELLOW); GLUCOSE, URINE (UA) AUTO NEGATIVE (NEGATIVE); KETONE, URINE AUTO NEGATIVE (NEGATIVE); LEUKOCYTE ESTERASE, URINE AUTO 3+ (NEGATIVE); NITRITE, URINE AUTO NEGATIVE (NEGATIVE); PROTEIN, URINE AUTO NEGATIVE (NEGATIVE); RBC, URINE AUTO 0 /HPF (0-3); SPECIFIC GRAVITY URINE AUTO 1.006 (1.002-1.035); SQUAMOUS EPITHELIAL CELL UR AU 1 /HPF (0-6); UROBILINOGEN, URINE AUTO 0.2 mg/dL (0.0-2.0); WBC, URINE AUTO 66 /HPF (0-3)
== END ==
LOC: M LAB REF 18:02
PROVIDERS: ATTEND Physician Assistant
DX: R30.0 Dysuria (principal)

== ENCOUNTER → 2021-01-04 | Outpatient (CLI) | payer MEDICARE, OTHER | LOC: M PLALAB 13:36 | PROVIDERS: ATTEND Family Medicine | DX: R73.01 Impaired fasting glucose (principal) ==

== ENCOUNTER → 2021-01-14 | Outpatient (CLI) | payer MEDICARE, OTHER ==
[~2021-01-14] MED LIST changes: -GABA-282; +GABA-282 PO; +HYDR-3713 PO; -PRIM50TA6; +PRIM50TA6 PO; +VITMTA PO
[2021-01-14 17:55] LABS: BASO # 0.1 10^3/uL (0.0-0.2); BASO % 0.5 % (0.0-1.0); EOS # 0.2 10^3/uL (0.0-0.5); EOS % 2.2 % (0.0-3.0); HEMATOCRIT 43.7 % (36.0-47.0); HEMOGLOBIN 14.4 g/dl (12.0-15.5); LYMPH # 2.1 10^3/uL (1.5-5.0); LYMPH % 21.2 % (24.0-44.0); MEAN CORPUSCULAR HEMOGLOBIN 31.8 pg (27.0-33.0); MEAN CORPUSCULAR VOLUME 96.5 fl (80.0-96.0); MONO # 0.8 10^3/uL (0.0-0.8); MONO % 7.4 % (2.0-8.0); NEUTROPHILS # 6.9 10^3/uL (1.5-8.5); NEUTROPHILS % 68.4 % (36.0-66.0); PLATELET COUNT, AUTOMATED 300 10^3/uL (150-450); RED BLOOD COUNT 4.53 10^6/uL (4.00-5.40); WHITE BLOOD COUNT 10.1 10^3/uL (4.0-10.0)
[2021-01-14 18:49] LABS: FERRITIN 206 NG/ML (8-252); IRON (FE) 63 UG/DL (50-170)
== END ==
LOC: M PLALAB 15:02
PROVIDERS: ATTEND Family Medicine
DX: D50.8 Other iron deficiency anemias (principal); Z23 Encounter for immunization
CPT/HCPCS: 36415; 82728; 83540; 85025; 90682; G0008; G0463

== ENCOUNTER → 2021-01-28 | Outpatient (CLI) | payer MEDICARE, OTHER ==
[~2021-01-28] MED LIST changes: -HYDR-3713 PO
== END ==
LOC: M LABSMTC 09:16
PROVIDERS: ATTEND Anesthesiology
DX: Z01.812 Encounter for preprocedural laboratory examination (principal); Z20.822 Contact with and (suspected) exposure to COVID-19

== ENCOUNTER 2021-02-02 07:37 | Day surgery (SDC) | payer MEDICARE, OTHER ==
[~2021-02-02] VITALS: Ht 154.9 cm; Wt 97.5 kg
[~2021-02-02 07:37] MED LIST changes: +CLINDAMYCIN 600 MG in IV 1 EA IV ONE; +LR 1,000 ML IV ONE
--- OUTSIDE RECORDS SUMMARY | 2021-02-02 07:40 | CCD | Continuity of Care Document ---
Author Author Janet VALDEZ DPM Organization Unknown Address [address] [place] [address], [address] [place] [address] Phone [phone] Care Team Providers Care Perinatal Coordinator Name Role Phone Emiliano Connor, Anjel MOYERM [phone] Problems Active Problems Provider Date Acquired deformity of toe Hari Valdez DPM Onset: 2020 Social History Type Date Description Comments Sex Unknown ETOH Use Rarely consumes alcohol socially Tobacco Use Start: Unknown Patient has never smoked Allergies and adverse reactions Active Allergies Criticality Reaction | Severity Comments Date Penicillin V Unable to assess criticality Hives 12/07/2020 Sulfa Unable to assess criticality Hives 12/07/2020 Zithromax Unable to assess criticality 12/07/2020 Requip Unable to assess criticality 12/07/2020 Symbicort Unable to assess criticality muscle cramp s severe 12/07/2020 Pulmicort Unable to assess criticality 12/07/2020 Ceftin Unable to assess criticality 12/07/2020 Statins Unable to assess criticality 12/07/2020 Dulera Unable to assess criticality 12/07/2020 Advair Unable to assess criticality 12/07/2020 Medications Active Medications SIG Qnty Indications Ordering Provide r Date Primidone 50mg Tablets Take One Tablet By Mouth Nightly Unknown Arnuity Ellipta 100mcg/Act Aerosol Inhale One puff By Mouth Every Day Unknown Ezetimibe 10mg Tablets Carlo Delgadillo DO Nitrofurantoin Monohydrate/Macrocrystals 100mg Capsules Take 1 Capsule By Mouth Twice Daily For 7 Days Unknown Phenazopyridine HCL 200mg Tablets Take 1 Tablet By Mouth Three Times Daily For 2 Days Unk nown Gabapentin 300mg Capsules Take Two Capsules By Mouth Twice A Day AT 8 00Am And 10 00PM Unknown Olmesartan Medoxomil 40mg Tablets Take One Tablet By Mouth Every Day Unknown Esomeprazole Magnesium 40mg Capsul es DR Take One Capsule By Mouth Every Day Unknown Montelukast Sodium 10mg Tablets Take One Tablet By Mouth AT Bedtime Unknown Tramadol HCL 50mg Tablets Chance Galaviz PA-C,[place] Cyclobenzaprine HCL 10mg Tablets Henry MORSE,Kimberly Prednisone 20mg Tablets Chance Galaviz PA-C,[facility] Carbidopa-Levodopa ER 25-100mg Tab lets ER Take One Tablet By Mouth Every Evening Unknown Buspirone HCL 7.5mg Tablets Unknown Levofloxacin 500mg Tablets Unknown Medications Administered in Office Medication SIG Qnty Indications Ordering Provider Date Inject Triamcinolone Acetonide 10 ML, ND C 9239-0467-29 Injection Hari mike, [facility] 12/07/2020 Inject Dexamthosone Phosphate 44917-013- 30 Injection Hari Valdez, [facility] 021 Immunizations Description No Information Available Vital Signs Date Vital Result Comment 01/04/2021 2:33pm Height 62 inches 5'2" Weight 220.00 lb BP Systolic 126 mmHg BP Diastolic 80 mmHg Heart Rate 71 /min BMI (Body Mass Index) 40.2 kg/m2 12/07/2020 2:06pm Height 62 inches 5'2" Weight 220.00 lb BP Systolic 112 mmHg BP Diastolic 70 mmHg Heart Rate 101 /min BMI (Body Mass Index) 40.2 kg/m2 Results Description No Information Available Procedures Date Code Description Status 01/04/2021 06818 Office/Outpatient Established Lo w MDM 20-29 Min Completed 12/07/2020 77292 Office/Outpatient New Low MDM 30 -44 Minutes Completed 12/07/2020 18495 X-Ray Foot Complete Completed 12/07/2020 70779 Inject/Drain Joint/Bursa Interme diate Completed Medical Devices Description No Information Available Encounters Type Date Location Provider Dx Diagnosis Office Visit 01/04/2021 2:15p [facility] Hari Valdez DPM M20.5x2 Other deformities of toe(s) (acquired), left foot Office Visit 12/07/2020 2:15p [facility] Hari Valdez DPM M20.5x2 Other deformities of toe(s) (acquired), left foot Assessments Date Code Description Provider 01/04/2021 M20.5x2 Other deformities of toe(s) (acq uired), left foot Hari Valdez DPM 12/07/2020 M20.5x2 Other deformities of toe(s) (acq uired), left foot Hari Valdez DPM Plan of Treatment Future Appointment(s):* 02/04/2021 1:30 pm - Hari Valdez DPM at [facility] * 02/02/2021 9:00 am - Hari Valdez DPM at [facility] Functional Status Description No Information Available Mental Status Description No Information Available Referrals Description No Information Available
--- OUTSIDE RECORDS SUMMARY | 2021-02-02 07:40 | CCD ---
Author Author [facility] Organization [facility] Address Unknown Phone Unavailable Care Team Providers Care Transportation Aid Name Role Phone Anjel Cummings Unavailable PROBLEMS Type Condition ICD9-CM Code [id number] Code Onset Dates Condition S tatus W/U Status Risk SNOMED Code Notes Problem Essential hypertension I10 Active confirmed 76678487 Problem Diaphragmatic hernia without mention of obstruction or gangrene K44.9 Active confirmed 66218255 Problem Other and unspecified hyperlipidemia E78.5 Act raheel confirmed 72353184 Problem Allergic rhinitis, cause unspecified J30.9 Act raheel confirmed 72698467 Problem Generalized anxiety disorder F41.1 Active confirme d 96634155 Problem Esophageal reflux K21.9 Active confirmed 23 5991080 Problem BMI 39.0-39.9,adult Z68.39 Active confirmed 150619802 Problem Restless legs syndrome G25.81 Active confirmed 68134880 Problem Low vitamin D level E55.9 Active confirmed 462810459 Problem Recurrent sinusitis J32.9 Active confirmed 411276251 Problem Unspecified hypothyroidism E03.9 Active confirmed 25013434 Problem Morbid obesity E66.01 Active confirmed 21639 6002 Problem Chronic fibrocystic breast disease in female, un specified laterality N60.19 Active confirmed 72527045 Problem Intention tremor G25.2 Active confirmed 307 84774 Problem Primary osteoarthritis of both knees M17.0 Act raheel confirmed 806476086 Problem Hearing difficulty of both ears H91.93 Active confi rmed 124949158 Problem Mild persistent asthma without complication J45.30 Active confirmed 217121918 ALLERGIES Allergen (clinical drug ingredient) Drug/Non Drug Allergy do cumented on EMR Reaction Allergy Type Onset Date Status Penicillin (For Allergies Use Only) Hives Drug Allerg y Active statins myalgia Non Drug Allergy Active sulfamethoxazole / trimethoprim Bactrim([facility] Code:[address]-65) not sure Drug Allergy Active cefuroxime Ceftin hives Drug Allergy Active Requip severe anxiety Drug Allergy Active sulfasalazine Sulfasalazine([facility] Code:[address]-36) severe eye irritation Drug Allergy Active zithromax GI distress Non Drug Allergy Active Dulera muscle cramps Drug Allergy Active fluticasone / salmeterol Advair Diskus([facility] Code:[address]-87) m uscle cramps Drug Allergy Active budesonide Pulmicort([facility] Code:[address]-29) muscle cramps Drug Aller gy Active budesonide / formoterol Symbicort([facility] Code:[address]-14) muscle cramps Drug Allergy Active ENCOUNTERS from 1950 to 2020-12-08 Encounter Location Date Provider Diagnosis [address] [phone] [place] [address] Nov, Anjel Cummings Mild persistent asthma witho ut complication J45.30 IMMUNIZATIONS Vaccine Route Administration Date Status Influenza 18 yrs & older Flublok IM Intramuscular Jan 15, 2020 Administered Zoster 50mcg/0.5mL Shingrix IM Intramuscular Feb 11, 2018 Adm inistered Zoster 50mcg/0.5mL Shingrix IM Intramuscular June 12, 2018 Adm inistered Influenza 18 yrs & older Flublok IM Intramuscular Jan 10, 2019 Administered Influenza 6mo & up Fluzone Unknown Feb 28, 2016 Refus ed Depo-Medrol 80mg Methylprednisolone Acetate IM Intramuscular May 04, 2016 Administered Zoster 0.65mL Zostavax IM Intramuscular October 04, 2012 Administ ered COVID-19 dose #2 given elsewhere Unspecified Unknown Jun 06, 2020 Administered COVID-19 dose #1 given elsewhere Unspecified Unknown May 16, 2020 Administered Pneumococcal Adult 0.5mL Pneumovax 23 IM Intramuscular July 08, 2020 Administered TDAP 0.5mL (Boostrix) IM Intramuscular Feb 28, 2016 Flory ro Pneumococcal 0.5mL Prevnar 13 IM Intramuscular Feb 11, 2018 A dministered TD Adult 0.5mL Tetanus Unknown Apr 09, 2004 Flory ro SOCIAL HISTORY Tobacco Use: Social History Observation Description Date Details (start date - stop date) Never Smoker Sex Assigned At : Social History Observation Description Sex Assigned At Unknown Audit Question Answer Notes Total Score: 1 Interpretation: Alcohol Education Language: Question Answer Notes Languages spoken: Hebrew Sexual Hx: Question Answer Notes Had sex in the last 12 months (vaginal, oral, or anal)? Yes Have you ever had an STD? No with Men only Drug and Alcohol Question Answer Notes Total Score: 0 Interpretation: No problems reported Alcohol Screening: Question Answer Notes Did you have a drink containing alcohol in the past year? Ye s Points 1 Interpretation Negative How often did you have six or more drinks on one occas ion in the past year? Never (0 points) How many drinks did you have on a typica l day when you were drinking in the past year? 1 or 2 (0 points) How often did you have a drink containing alcohol in t he past year? Monthly or less (1 point) BMI Care Goal Follow-Up Question Answer Notes Above Normal BMI Follow-Up Dietary management educatio n, guidance, and counseling Tobacco Use: Question Answer Notes Are you a: never smoker REASON FOR REFERRAL No Information VITAL SIGNS No information MEDICATIONS Medication SIG (Take, Route, Frequency, Duration) Notes Start Da te End Date Status NexIUM 40 MG TAKE ONE CAPSULE BY MOUTH EVERY DAY for 90 days Active Vitamin D 2000 UNIT as directed Orally Daily May, Active predniSONE 20 MG 2 tablets Orally Once a day for 5 days May, Not-Taking Aspirin 81 MG 1 tablet Orally Once a day for 30 day(s) Active Ferrous Sulfate 325 (65 Fe) MG 1 tablet Orally Once a day Active Magnesium 400 MG as directed Orally Daily Active Nebulizer Air Tube/Plugs - as directed dx: J54.901, J5 4.909 as directed for 30 day(s) Mar, Active Cyclobenzaprine HCl 10 MG 1 tablet Orally tid prn for 10 days May, Not-Taking Glucosamine 500 MG 1 capsule with a meal Orally once daily Active Multivitamin Adult - 1 tab Orally Daily Active Benicar 40 mg 1 tablet orally daily for 90 day(s) Active Gabapentin 300 MG 2 capsule Orally bid per Neuro in [place] Dec, Active Nicki 180 MG 1 tablet Orally daily for 90 day(s) Active Fish Oil _ 1200 mg 1 capsule Orally Once a day Active Probiotic - 1 capsule Orally Daily A ctive traMADol HCl 50 MG 1 tablet as needed Orally TID as needed for 1 0 days Jun, Not-Taking Nebulizer - as directed dx: J54.901, J54.909 as directed for 30 day(s) Mar, Active busPIRone HCl 7.5 MG 1 tablet Orally Twice a day for 90 Active Glucosamine Chondr 500 Complex - as directed Orally Daily Active Flonase 50 MCG/DOSE 2 spray in each nostril Nasally daily as needed for 90 days Active ProAir HFA 108 (90 Base) MCG/ACT 2 puffs Inhalation ev joshua 4 hours as needed for 30 Days Active Arnuity Ellipta 100 MCG/ACT 1 puff Inhalation Once a day for 30 Days Feb, Active Singulair 10 mg 1 tablet in the evening orally at bedtime for 90 day( s) Active Xopenex 1.25 MG/3ML 3 ml Inhalation Three times a day as needed for 30 Days Dec, Active Zetia 10 mg 1 tablet Orally Once a day for 90 days Active PROCEDURES No Information RESULTS No Results REASON FOR VISIT meds refill 90 day supply MEDICAL (GENERAL) HISTORY Type Description Date Medical History HTN, goal >130/80 per APARNA/AHA guidelines Medical History Asthma, mild persistent Medical History Hyperlipidemia, ASCVD 10-yea r risk 8.7% in 07/2020 on Zetia (intolerant of statins) Medical History RLS Medical History Hypothyroidism Medical History GIL Medical History GERD 2/2 hiatal hernia Medical History Intention tremor Medical History h/o nephrolithiasis Medical History Vitamin D Def Medical History fibrocystic breast - followed by [facility] Medical History DEXA 02/2018 - normal bone d ensity. FRAX risk 6.0%/0.5%. Recommend repeat in 2022 Surgical History cystoscopy 1976 Surgical History hysterectomy 1994 Surgical History laprascopic surgery right knee 1993, 199 8 Surgical History bunionectomy ([facility]) 2008 Surgical History EGD (erosions)/ colonoscopy (Carlotta Quintero), repeat in 10 years 2009 Surgical History Cholecystectomy Trini 2011 Surgical History hernia repair- Dr Boateng 07/2016 Surgical History EGD and Colonoscopy (Nay Gorman), repea t in 10 years 05/2018 Surgical History left rotator [id number]-[facility]-Tynqpdov-Julius Surgical History ERCP with sphincterotomy and 2 stones removed from the biliary tract - [facility] 01/2020 Hospitalization History cholecystitis 2012 Goals Section No Information Health Concerns No Information MEDICAL EQUIPMENT No Information MENTAL STATUS No Information FUNCTIONAL STATUS No Information ASSESSMENTS Encounter Date Diagnosis Assessment Notes Treatment Notes Treatm ent Clinical Notes Nov, Mild persistent asthma without complication (ICD -10 - J45.30) PLAN OF TREATMENT Medication Medication Name Sig Start Date Stop Date Singulair 10 mg 1 tablet in the evening orally at bedtime for 90 day(s) Zetia 10 mg 1 tablet Orally Once a day for 90 days NexIUM 40 MG TAKE ONE CAPSULE BY MOUTH EVERY DAY for 90 days Benicar 40 mg 1 tablet orally daily for 90 day(s) Next Appt Details Provider Name:Anjel Cummings, 2020-10-0 8 01:45:00 PM, [address] [place] [address], , [place], [address], Insurance Providers Payer Name Payer Address Payer Phone Insured Name Patient Relati onship to Insured Coverage Start Date Coverage End Date MEDICARE Part A and B [address] [facility] [id number] MERY CHAUDHARY [facility] [address] [id number] [facility] [phone] MERY CHAUDHARY self
--- OUTSIDE RECORDS SUMMARY | 2021-02-02 07:40 | CCD | Continuity of Care Document ---
Author Author Janet VALDEZ DPM Organization Unknown Address [address] [place] [address], [address] [place] [address] Phone [phone] Care Team Providers Care Type Cutter Name Role Phone Emiliano Connor, Anjel MOYERM [phone] Problems Description No Information Available Social History Type Date Description Comments Sex Unknown ETOH Use Rarely consumes alcohol socially Tobacco Use Start: Unknown Patient has never smoked Allergies, Adverse Reactions, Alerts Active Allergies Criticality Reaction | Severity Comments [...] Henry MORSE,Kimberly Prednisone 20mg Tablets Chance Galaviz PA-C,Kimberly Carbidopa-Levodopa ER 25-100mg Tab lets ER Take One Tablet By Mouth Every Evening Unknown Buspirone HCL 7.5mg Tablets Unknown Levofloxacin 500mg Tablets Unknown Medications Administered in Office Medication SIG Qnty Indications Ordering Provider Date Inject Triamcinolone Acetonide 10 ML, ND C 2118-8803-56 Injection Hari mike DPM 12/07/2020 Inject Dexamthosone Phosphate 01768-872- 30 Injection Hari Valdez DPM 021 Immunizations Description No Information Available Vital Signs Date Vital Result Comment 12/07/2020 2:06pm Height 62 inches 5'2" Weight 220.00 lb BP Systolic 112 mmHg BP Diastolic 70 mmHg Heart Rate 101 /min BMI (Body Mass Index) 40.2 kg/m2 Results Description No Information Available Procedures Date Code Description Status 12/07/2020 32395 Office/Outpatient [facility] 30 -44 Minutes Completed 12/07/2020 36283 X-Ray Foot Complete Completed 12/07/2020 41393 Inject/Drain Joint/Bursa Interme diate Completed Medical Devices Description No Information Available Encounters Type Date Location Provider Dx Diagnosis Office Visit 12/07/2020 2:15p [place] [facility] Hari Valdez DPM M20.5x2 Other deformities of toe(s) (acquired), left foot Assessments Date Code Description Provider 12/07/2020 M20.5x2 Other deformities of toe(s) (acq uired), left foot Hari Valdez DPM Plan of Treatment Future Appointment(s):* 01/04/2021 2:15 pm - Hari Valdez DPM at [facility] Functional Status Description No Information Available Mental Status Description No Information Available Referrals Description No Information Available
--- OUTSIDE RECORDS SUMMARY | 2021-02-02 07:40 | CCD | Continuity of Care Document ---
Author Author Janet VALDEZ DPM Organization Unknown Address [address] [place] [address], [facility] [address] [place] [address] Phone [phone] Care Team Providers Care Mercury Purifier Name Role Phone Emiliano Connor, Anjel MOYERM [phone] Problems Description No Information Available Social History [...] Henry MORSE,Kimberly Prednisone 20mg Tablets Chance Galaviz PA-C,Ikmberly Carbidopa-Levodopa ER 25-100mg Tab lets ER Take One Tablet By Mouth Every Evening Unknown Buspirone HCL 7.5mg Tablets Unknown Levofloxacin 500mg Tablets Unknown Immunizations Description No Information Available Vital Signs Date Vital Result Comment 12/07/2020 2:06pm Height 62 inches 5'2" Weight 220.00 lb BP Systolic 112 mmHg BP Diastolic 70 mmHg Heart Rate 101 /min BMI (Body Mass Index) 40.2 kg/m2 Results Description No Information Available Procedures Description No Information Available Medical Devices Description No Information Available Encounters Description No Information Available Assessments Description No Information Available Plan of Treatment Future Appointment(s):* 01/04/2021 2:15 pm - Hari Valdez DPM at [facility] Functional Status Description No Information Available Mental Status Description No Information Available Referrals Description No Information Available
--- OUTSIDE RECORDS SUMMARY | 2021-02-02 07:40 | CCD | Continuity of Care Document ---
Author Author Janet VALDEZ DPM Organization Unknown Address [address] [place] [address], [address] [place] [address] Phone [phone] Care Team Providers Care Relief Manager Name Role Phone Emiliano Connor, Anjel MOYERM [phone] Problems Active Problems Provider Date Acquired deformity of toe aHri Valdez DPM Onset: 2020 Social History Type [...] Inject Triamcinolone Acetonide 10 ML, ND C 3562-8405-94 Injection Hari mike, ALICE 12/07/2020 Inject Dexamthosone Phosphate 45077-868- 30 Injection Hari Valdez, [facility] 021 Immunizations Description No Information Available Vital [...] Available Procedures Date Code Description Status 12/07/2020 18219 Office/Outpatient New [facility] MDM 30 -44 Minutes Completed 12/07/2020 18309 X-Ray Foot Complete Completed 12/07/2020 08421 Inject/Drain Joint/Bursa Interme diate Completed Medical Devices Description No Information Available Encounters Type Date Location Provider Dx Diagnosis Office Visit 12/07/2020 2:15p [place] [facility] Hari Valdez DPM M20.5x2 Other deformities of toe(s) (acquired), left foot Assessments Date Code Description Provider 12/07/2020 M20.5x2 Other deformities of toe(s) (acq uired), left foot Hari Valdez DPM Plan of Treatment No Information Available Functional Status Description No Information Available Mental Status Description No Information Available Referrals Description No Information Available
--- OUTSIDE RECORDS SUMMARY | 2021-02-02 07:40 | CCD | Continuity of Care Document ---
Author Author Janet VALDEZ DPM Organization Unknown Address [address] [place] [address], [facility] [address] [place] [address] Phone [phone] Care Team Providers Care Airport Attendant Name Role Phone Emiliano Connor, Anjel MOYERM [phone] Problems Description No Information Available Social History [...] 2:15 pm - Hari Valdez DPM at [facility] Functional Status Description No Information Available Mental Status Description No Information Available Referrals Description No Information Available
--- OUTSIDE RECORDS SUMMARY | 2021-02-02 07:40 | CCD | Continuity of Care Document ---
Author Author Janet VALDEZ DPM Organization Unknown Address [address] [place] [address], [address] [place] [address] Phone [phone] Care Team Providers Care Smutter Name Role Phone Emiliano Connor, Anjel MOYERM [phone] Problems Active Problems Provider Date Acquired deformity [...] Inject Triamcinolone Acetonide 10 ML, ND C 1634-0042-69 Injection Hari mike, ALICE 12/07/2020 Inject Dexamthosone Phosphate 21167-603- 30 Injection Hari Valdez, [facility] 021 Immunizations Description No Information Available [...] Available Procedures Date Code Description Status 12/07/2020 89717 Office/Outpatient New [facility] MDM 30 -44 Minutes Completed 12/07/2020 88447 X-Ray Foot Complete Completed 12/07/2020 52487 Inject/Drain Joint/Bursa Interme diate Completed Medical Devices Description No Information Available Encounters Type Date Location Provider Dx Diagnosis Office Visit 12/07/2020 2:15p [place] [facility] Hari Valdez DPM M20.5x2 Other deformities of toe(s) (acquired), left foot Assessments Date Code Description Provider 12/07/2020 M20.5x2 Other deformities of toe(s) (acq uired), left foot Hari Valdez DPM Plan of Treatment No Information Available Functional Status Description No Information Available Mental Status Description No Information Available Referrals Description No Information Available
--- OUTSIDE RECORDS SUMMARY | 2021-02-02 07:40 | CCD ---
Author Author [facility] Organization [facility] Address Unknown Phone Unavailable Care Team Providers Care Hogshead Roller Name Role Phone Anjel Cummings Unavailable PROBLEMS Type Condition ICD9-CM Code LZV49-FA Code Onset Dates Condition S tatus W/U Status Risk SNOMED Code Notes Problem Essential hypertension I10 Active confirmed 36230242 Problem Diaphragmatic hernia without mention of obstruction or gangrene K44.9 Active confirmed 62334044 Problem Other and unspecified hyperlipidemia E78.5 Act raheel confirmed 25964484 Problem Allergic rhinitis, cause unspecified J30.9 Act raheel confirmed 42677220 Problem Generalized anxiety disorder F41.1 Active confirme d 67534222 Problem Esophageal reflux K21.9 Active confirmed 23 8159865 Problem BMI 39.0-39.9,adult Z68.39 Active confirmed 423937754 Problem Restless legs syndrome G25.81 Active confirmed 44235501 Problem Low vitamin D level E55.9 Active confirmed 982686576 Problem Recurrent sinusitis J32.9 Active confirmed 452008767 Problem Unspecified hypothyroidism E03.9 Active confirmed 12395132 Problem Morbid obesity E66.01 Active confirmed 25674 6002 Problem Chronic fibrocystic breast disease in female, un specified laterality N60.19 Active confirmed 08500542 Problem Intention tremor G25.2 Active confirmed 307 27272 Problem Primary osteoarthritis of both knees M17.0 Act raheel confirmed 107705396 Problem Hearing difficulty of both ears H91.93 Active confi rmed 703757003 Problem Mild persistent asthma without complication J45.30 Active confirmed 810970570 ALLERGIES Allergen (clinical drug ingredient) Drug/Non Drug Allergy do cumented on EMR Reaction Allergy Type Onset Date Status Penicillin (For Allergies Use Only) Hives Drug Allerg y Active statins myalgia Non Drug Allergy Active sulfamethoxazole / trimethoprim Bactrim([facility] Code:[address]-69) not sure Drug Allergy Active cefuroxime Ceftin hives Drug Allergy Active Requip severe anxiety Drug Allergy Active sulfasalazine Sulfasalazine([facility] Code:[address]-66) severe eye irritation Drug Allergy Active zithromax GI distress Non Drug Allergy Active Dulera muscle cramps Drug Allergy Active fluticasone / salmeterol Advair Diskus([facility] Code:[address]-24) m uscle cramps Drug Allergy Active budesonide Pulmicort([facility] Code:[address]-50) muscle cramps Drug Aller gy Active budesonide / formoterol Symbicort([facility] Code:[address]-62) muscle cramps Drug Allergy Active ENCOUNTERS from 1950 to 2021-01-05 Encounter Location Date Provider Diagnosis [address] [phone] [place] [address] 29 Dec, 2020 Anjel Cummings IMMUNIZATIONS Vaccine Route Administration Date Status Influenza 18 yrs & older Flublok IM Intramuscular Jan 15, 2020 Administered COVID-19 dose #2 given elsewhere Unspecified Unknown Jun 06, 2020 Administered Zoster 50mcg/0.5mL Shingrix IM Intramuscular June 12, 2018 Adm inistered Influenza 18 yrs & older Flublok IM Intramuscular Jan 10, 2019 Administered Influenza 6mo & up Fluzone Unknown Feb 28, 2016 Refus ed COVID-19 dose #1 given elsewhere Unspecified Unknown May 16, 2020 Administered Zoster 50mcg/0.5mL Shingrix IM Intramuscular Feb 11, 2018 Adm inistered Depo-Medrol 80mg Methylprednisolone Acetate IM Intramuscular May 04, 2016 Administered Zoster 0.65mL Zostavax IM Intramuscular October 04, 2012 Administ ererosey Pneumococcal Adult 0.5mL Pneumovax 23 IM Intramuscular [...] Education Language: Question Answer Notes Languages spoken: Maori Sexual Hx: Question Answer Notes Had sex [...] Adult - 1 tab Orally Daily Active ProAir HFA 108 (90 Base) MCG/ACT 2 puffs Inhalation ev joshua 4 hours as needed for 30 Days Active Gabapentin 300 MG 2 capsule Orally bid per Neuro in [place] Dec, Active Nicki 180 MG 1 tablet [...] daily as needed for 90 days Active Singulair 10 mg 1 tablet in the evening orally at bedtime for 90 day( s) Active Xopenex 1.25 MG/3ML 3 ml Inhalation Three times a day as needed for 30 Days Dec, Active Arnuity Ellipta 100 MCG/ACT 1 puff Inhalation Once a day for 30 Days Feb, Active Zetia 10 mg 1 tablet Orally Once a day for 90 days Active Olmesartan Medoxomil 40 MG TAKE ONE TABLET BY MOUTH EVERY DAY for 90 Active PROCEDURES No Information RESULTS No Results REASON FOR VISIT clearance appointment? MEDICAL (GENERAL) HISTORY Type Description Date Medical [...] Medical History fibrocystic breast - followed by [facility] Medical History DEXA 02/2018 - normal bone [...] 10 years 05/2018 Surgical History left rotator [id number]-XIU-Mdclrmdw-Julius Surgical History ERCP with sphincterotomy and 2 stones removed from the biliary tract - [facility] 01/2020 Hospitalization History cholecystitis 2012 Goals Section No Information Health Concerns No Information MEDICAL EQUIPMENT No Information MENTAL STATUS No Information FUNCTIONAL STATUS No Information ASSESSMENTS No Information PLAN OF TREATMENT Medication Medication Name Sig Start Date Stop Date Zetia 10 mg 1 tablet Orally Once a day for 90 days Olmesartan Medoxomil 40 MG TAKE ONE TABLET BY MOUTH EVERY DAY fo r 90 NexIUM 40 MG TAKE ONE CAPSULE BY MOUTH EVERY DAY for 90 days Singulair 10 mg 1 tablet in the evening orally at bedtime for 90 day(s) Next Appt Details Provider Name:Anjel Cummings, 2020-10-0 8 01:45:00 PM, [address] [facility], , [place], [address], Insurance Providers Payer Name Payer Address Payer Phone Insured Name Patient Relati onship to Insured Coverage Start Date Coverage End Date MEDICARE Part A and B [address] [facility] [phone] MERY CHAUDHARY [facility] [address] [id number] [facility] [phone] MERY CHAUDHARY self
--- OUTSIDE RECORDS SUMMARY | 2021-02-02 07:41 | CCD ---
Author Author [facility] Organization [facility] Address Unknown Phone Unavailable Care Team Providers Care Skid Adzer Name Role Phone Rosano, Hema PA-C Unavailable Unavailable Rosano, Hema PA-C Unavailable Unavailable Rosano, Hema PA-C Unavailable Unavailable Rosano, Hema PA-C Unavailable Unavailable Rosano, Hema PA-C Unavailable Unavailable Rosano, Hema PA-C Unavailable Unavailable Rosano, Hema PA-C Unavailable Unavailable Rosano, Hema PA-C Unavailable Unavailable Rosano, Hema PA-C Unavailable Unavailable Rosano, Hema PA-C Unavailable Unavailable Rosano, Hema PA-C Unavailable Unavailable Rosano, Hema PA-C Unavailable Unavailable Rosano, Hema PA-C Unavailable Unavailable Rosano, Hema PA-C Unavailable Unavailable Rosano, Hema PA-C Unavailable Unavailable Rosano, Hema PA-C Unavailable Unavailable Rosano, Hema PA-C Unavailable Unavailable Rosano, Hema PA-C Unavailable Unavailable Rosano, Hema PA-C Unavailable Unavailable Rosano, Hema PA-C Unavailable Unavailable Rosano, Hema PA-C Unavailable Unavailable Rosano, Hema PA-C Unavailable Unavailable Rosano, Hema PA-C Unavailable Unavailable Rosano, Hema PA-C Unavailable Unavailable Rosano, Hema PA-C Unavailable Unavailable Luke VALDEZ DPM Unavailable Unavailable MAJAK, R DAVID DPM Unavailable Unavailable MAJAK, R DAVID DPM Unavailable Unavailable MAJAK, R DAVID DPM Unavailable Unavailable MAJAK, R DAVID DPM Unavailable Unavailable MAJAK, R DAVID DPM Unavailable Unavailable MAJAK, R DAVID DPM Unavailable Unavailable MAJAK, R DAVID DPM Unavailable Unavailable MAJAK, R DAVID DPM Unavailable Unavailable MAJAK, R DAVID DPM Unavailable Unavailable MAJAK, R DAVID DPM Unavailable Unavailable MAJAK, R DAVID DPM Unavailable Unavailable MAJAK, R DAVID DPM Unavailable Unavailable MAJAK, R DAVID DPM Unavailable Unavailable MAJAK, R DAVID DPM Unavailable Unavailable MAJAK, R DAVID DPM Unavailable Unavailable MAJAK, R DAVID DPM Unavailable Unavailable MAJAK, R DAVID DPM Unavailable Unavailable MAJAK, R DAVID DPM Unavailable Unavailable MAJAK, R DAVID DPM Unavailable Unavailable MAJAK, R DAVID DPM Unavailable Unavailable MAJAK, R DAVID DPM Unavailable Unavailable MAJAK, R DAVID DPM Unavailable Unavailable MAJAK, R DAVID DPM Unavailable Unavailable MAJAK, R DAVID DPM Unavailable Unavailable MAJAK, R DAVID DPM Unavailable Unavailable MAJAK, R DAVID DPM Unavailable Unavailable MAJAK, R DAVID DPM Unavailable Unavailable MAJAK, R DAVID DPM Unavailable Unavailable MAJAK, R DAVID DPM Unavailable Unavailable MAJAK, R DAVID DPM Unavailable Unavailable ORTIZ, L FAYE PA Unavailable Unavailable ORTIZ, L FAYE PA Unavailable Unavailable ORTIZ, L FAYE PA Unavailable Unavailable ORTIZ, L FAYE PA Unavailable Unavailable ORTIZ, L FAYE PA Unavailable Unavailable ORTIZ, L FAYE PA Unavailable Unavailable ORTIZ, L FAYE PA Unavailable Unavailable ORTIZ, L FAYE PA Unavailable Unavailable ORTIZ, L FAYE PA Unavailable Unavailable ORTIZ, L FAYE PA Unavailable Unavailable ORTIZ, L FAYE PA Unavailable Unavailable ORTIZ, L FAYE PA Unavailable Unavailable ORTIZ, L FAYE PA Unavailable Unavailable ORTIZ, L FAYE PA Unavailable Unavailable ORTIZ, L FAYE PA Unavailable Unavailable ORTIZ, L FAYE PA Unavailable Unavailable ORTIZ, L FAYE PA Unavailable Unavailable ORTIZ, L FAYE PA Unavailable Unavailable ORTIZ, L FAYE PA Unavailable Unavailable ORTIZ, L FAYE PA Unavailable Unavailable ORTIZ, L FAYE PA Unavailable Unavailable ORTIZ, L FAYE PA Unavailable Unavailable ORTIZ, L FAYE PA Unavailable Unavailable ORTIZ, L FAYE PA Unavailable Unavailable ORTIZ, L FAYE PA Unavailable Unavailable ORTIZ, L FAYE PA Unavailable Unavailable ORTIZ, L FAYE PA Unavailable Unavailable ORTIZ, L FAYE PA Unavailable Unavailable ORTIZ, L FAYE PA Unavailable Unavailable ORTIZ, L FAYE PA Unavailable Unavailable ORTIZ, L FAYE PA Unavailable Unavailable ORTIZ, L FAYE PA Unavailable Unavailable ORTIZ, L FAYE PA Unavailable Unavailable ORTIZ, L FAYE PA Unavailable Unavailable ORTIZ, L FAYE PA Unavailable Unavailable ORTIZ, L FAYE PA Unavailable Unavailable ORTIZ, L FAYE PA Unavailable Unavailable ORTIZ, L FAYE PA Unavailable Unavailable ORTIZ, L FAYE PA Unavailable Unavailable JAYLENE, Jane ULLOA MD Unavailable Unavailable JAYLENE, Jane ULLOA MD Unavailable Unavailable JAYLENE, Jane ULLOA MD Unavailable Unavailable JAYLENE, Jane ULLOA MD Unavailable Unavailable JAYLENE, Jane ULLOA MD Unavailable Unavailable JAYLENE, Jane ULLOA MD Unavailable Unavailable JAYLENE, Jane ULLOA MD Unavailable Unavailable JAYLENE, Jane ULLOA MD Unavailable Unavailable JAYLENE, Jane ULLOA MD Unavailable Unavailable JAYLENE, Jane ULLOA MD Unavailable Unavailable JAYLENE, Jane ULLOA MD Unavailable Unavailable JAYLENE, Jane ULLOA MD Unavailable Unavailable JAYLENE, Jane ULLOA MD Unavailable Unavailable JAYLENE, Jane ULLOA MD Unavailable Unavailable JAYLENE, Jane ULLOA MD Unavailable Unavailable JAYLENE, Jane ULLOA MD Unavailable Unavailable JAYLENE, Jane ULLOA MD Unavailable Unavailable JAYLENE, Jane ULLOA MD Unavailable Unavailable JAYLENE, Jane ULLOA MD Unavailable Unavailable JAYLENE, Jane ULLOA MD Unavailable Unavailable JAYLENE, Jane ULLOA MD Unavailable Unavailable JAYLENE, Jane ULLOA MD Unavailable Unavailable JAYLENEJane MD Unavailable Unavailable JAYLENE, Jane ULLOA MD Unavailable Unavailable JAYLENE, Jane ULLOA MD Unavailable Unavailable JAYLENE, Jane ULLOA MD Unavailable Unavailable JAYLENE, Jane ULLOA MD Unavailable Unavailable JAYLENEJane MD Unavailable Unavailable JAYLENEJane MD Unavailable Unavailable JAYLENEJane MD Unavailable Unavailable JAYLENE, Jane ULLOA MD Unavailable Unavailable JAYLENE, Jane ULLOA MD Unavailable Unavailable JAYLENE, Jane ULLOA MD Unavailable Unavailable JAYLENE, Jane ULLOA MD Unavailable Unavailable JAYLENEJane MD Unavailable Unavailable JAYLENE, Jane ULLOA MD Unavailable Unavailable JAYLENE, Jane ULLOA MD Unavailable Unavailable JAYLENE, Jane ULLOA MD Unavailable Unavailable JAYLENE, Jane ULLOA MD Unavailable Unavailable JAYLENE, Jane ULLOA MD Unavailable Unavailable JAYLENE, Jane ULLOA MD Unavailable Unavailable JAYLENE, Jane ULLOA MD Unavailable Unavailable JAYLENE, Jane ULLOA MD Unavailable Unavailable JAYLENE, Jane ULLOA MD Unavailable Unavailable JAYLENE, Jane ULLOA MD Unavailable Unavailable JAYLENE, Jane ULLOA MD Unavailable Unavailable JAYLENE, Jane ULLOA MD Unavailable Unavailable JAYLENE, Jane ULLOA MD Unavailable Unavailable JAYLENE, Jane ULLOA MD Unavailable Unavailable JAYLENE, Jane ULLOA MD Unavailable Unavailable JAYLENE, Jane ULLOA MD Unavailable Unavailable JAYLENE, Jane ULLOA MD Unavailable Unavailable JAYLENE, Jane ULLOA MD Unavailable Unavailable JAYLENE, Jane ULLOA MD Unavailable Unavailable JAYLENE, Jane ULLOA MD Unavailable Unavailable JAYLENE, Jane ULLOA MD Unavailable Unavailable JAYLENE, Jane ULLOA MD Unavailable Unavailable JAYLENE, Jane ULLOA MD Unavailable Unavailable JAYLENE, Jane ULLOA MD Unavailable Unavailable JAYLENE, Jane ULLOA MD Unavailable Unavailable JAYLENE, Jane ULLOA MD Unavailable Unavailable JAYLENE, Jane ULLOA MD Unavailable Unavailable JAYLENE, Jane ULLOA MD Unavailable Unavailable JAYLENE, Jane ULLOA MD Unavailable Unavailable JAYLENE, Jane ULLOA MD Unavailable Unavailable JAYLENE, Jane ULLOA MD Unavailable Unavailable JAYLENE, Jane ULLOA MD Unavailable Unavailable JAYLENE, Jane ULLOA MD Unavailable Unavailable JAYLENE, Jane ULLOA MD Unavailable Unavailable JAYLENE, Jane ULLOA MD Unavailable Unavailable JAYLENE, Jane ULLOA MD Unavailable Unavailable JAYLENE, Jane ULLOA MD Unavailable Unavailable JAYLENE, Jane ULLOA MD Unavailable Unavailable JAYLENE, Jane ULLOA MD Unavailable Unavailable JAYLENE, Jane ULLOA MD Unavailable Unavailable JAYLENE, Jane ULLOA MD Unavailable Unavailable JAYLENE, Jane ULLOA MD Unavailable Unavailable JAYLENE, Jane ULLOA MD Unavailable Unavailable JAYLENE, Jane ULLOA MD Unavailable Unavailable JAYLENE, Jane ULLOA MD Unavailable Unavailable JAYLENE, Jane ULLOA MD Unavailable Unavailable JAYLENE, Jane ULLOA MD Unavailable Unavailable JAYLENE, Jane ULLOA MD Unavailable Unavailable JAYLENE, Jane ULLOA MD Unavailable Unavailable JAYLENE, Jane ULLOA MD Unavailable Unavailable JAYLENE, Jane ULLOA MD Unavailable Unavailable JAYLENE, Jane ULLOA MD Unavailable Unavailable JAYLENE, Jane ULLOA MD Unavailable Unavailable JAYLENE, Jane ULLOA MD Unavailable Unavailable JAYLENE, Jane NEHEMIAS MD Unavailable Unavailable Jane MARIEE MD Unavailable Unavailable SOJEWICZ, HALLIE PA Unavailable Unavailable SOJEWICZ, HALLIE PA Unavailable Unavailable SOJEWICZ, HALLIE PA Unavailable Unavailable SOJEWICZ, HALLIE PA Unavailable Unavailable SOJEWICZ, HALLIE PA Unavailable Unavailable SOJEWICZ, HALLIE PA Unavailable Unavailable SOJEWICZ, HALLIE PA Unavailable Unavailable SOJEWICZ, HALLIE PA Unavailable Unavailable SOJEWICZ, HALLIE PA Unavailable Unavailable SOJEWICZ, HALLIE PA Unavailable Unavailable SOJEWICZ, HALLIE PA Unavailable Unavailable SOJEWICZ, HALLIE PA Unavailable Unavailable SOJEWICZ, HALLIE PA Unavailable Unavailable SOJEWICZ, HALLIE PA Unavailable Unavailable SOJEWICZ, HALLIE PA Unavailable Unavailable SOJEWICZ, HALLIE PA Unavailable Unavailable SOJEWICZ, HALLIE PA Unavailable Unavailable SOJEWICZ, HALLIE PA Unavailable Unavailable SOJEWICZ, HALLIE PA Unavailable Unavailable SOJEWICZ, HALLIE PA Unavailable Unavailable SOJEWICZ, HALLIE PA Unavailable Unavailable SOJEWICZ, HALLIE PA Unavailable Unavailable SOJEWICZ, HALLIE PA Unavailable Unavailable SOJEWICZ, HALLIE PA Unavailable Unavailable SOJEWICZ, HALLIE PA Unavailable Unavailable SOJEWICZ, HALLIE PA Unavailable Unavailable SOJEWICZ, HALLIE PA Unavailable Unavailable SOJEWICZ, HALLIE PA Unavailable Unavailable SOJEWICZ, HALLIE PA Unavailable Unavailable SOJEWICZ, HALLIE PA Unavailable Unavailable SOJEWICZ, HALLIE PA Unavailable Unavailable SOJEWICZ, HALLIE PA Unavailable Unavailable SOJEWICZ, HALLIE PA Unavailable Unavailable SOJEWICZ, HALLIE PA Unavailable Unavailable SOJEWICZ, HALLIE PA Unavailable Unavailable SOJEWICZ, HALLIE PA Unavailable Unavailable SOJEWICZ, HALLIE PA Unavailable Unavailable SOJEWICZ, HALLIE PA Unavailable Unavailable Geurtsen, Aart Unavailable Unavailable Geurtsen, Aart Unavailable Unavailable Geurtsen, Aart Unavailable Unavailable Geurtsen, Aart Unavailable Unavailable Geurtsen, Aart Unavailable Unavailable Geurtsen, Aart Unavailable Unavailable Geurtsen, Aart Unavailable Unavailable Geurtsen, Aart Unavailable Unavailable Geurtsen, Aart Unavailable Unavailable Geurtsen, Aart Unavailable Unavailable Geurtsen, Aart Unavailable Unavailable Geurtsen, Aart Unavailable Unavailable Geurtsen, Aart Unavailable Unavailable Geurtsen, Aart Unavailable Unavailable Geurtsen, Aart Unavailable Unavailable Geurtsen, Aart Unavailable Unavailable Geurtsen, Aart Unavailable Unavailable Geurtsen, Aart Unavailable Unavailable Geurtsen, Aart Unavailable Unavailable Ludy Cummings MD Unavailable Unavailable Ludy Cummings MD Unavailable Unavailable Ludy Cummings MD Unavailable Unavailable Ludy Cummings MD Unavailable Unavailable Ludy Cummings MD Unavailable Unavailable Ludy Cummings MD Unavailable Unavailable Ludy Cummings MD Unavailable Unavailable Ludy Cummings MD Unavailable Unavailable Ludy Cummings MD Unavailable Unavailable Ludy Cummings MD Unavailable Unavailable Ludy Cummings MD Unavailable Unavailable Ludy Cummings MD Unavailable Unavailable Ludy Cummings MD Unavailable Unavailable Ludy Cummings MD Unavailable Unavailable Ludy Cummings MD Unavailable Unavailable Ludy Cummings MD Unavailable Unavailable Ludy Cummings MD Unavailable Unavailable Ludy Cummings MD Unavailable Unavailable Ludy Cummings MD Unavailable Unavailable Ludy Cummings MD Unavailable Unavailable Ludy Cummings MD Unavailable Unavailable Ludy Cummings MD Unavailable Unavailable Ludy Cummings MD Unavailable Unavailable Ludy Cummings MD Unavailable Unavailable Ludy Cummings MD Unavailable Unavailable Ludy Cummings MD Unavailable Unavailable Ludy Cummings MD Unavailable Unavailable Ludy Cummings MD Unavailable Unavailable Ludy Cummings MD Unavailable Unavailable Ludy Cummings MD Unavailable Unavailable Ludy Cummings MD Unavailable Unavailable Ludy Cummings MD Unavailable Unavailable Ludy Cummings MD Unavailable Unavailable Ludy Cummings MD Unavailable Unavailable Ludy Cummings MD Unavailable Unavailable Ludy Cummings MD Unavailable Unavailable Ludy Cummings MD Unavailable Unavailable Ludy Cummings MD Unavailable Unavailable Ludy Cummings MD Unavailable Unavailable Ludy Cummings MD Unavailable Unavailable Ludy Cummings MD Unavailable Unavailable Ludy Cummings MD Unavailable Unavailable Ludy Cummings MD Unavailable Unavailable Ludy Cummings MD Unavailable Unavailable Ludy Cummings MD Unavailable Unavailable Ludy Cummings MD Unavailable Unavailable Ludy Cummings MD Unavailable Unavailable Ludy Cummings MD Unavailable Unavailable Ludy Cummings MD Unavailable Unavailable Ludy Cummings MD Unavailable Unavailable Ludy Cummings MD Unavailable Unavailable Ludy Cummings MD Unavailable Unavailable Ludy Cummings MD Unavailable Unavailable Luyd Cummings MD Unavailable Unavailable Ludy Cummings MD Unavailable Unavailable HANIFINChelsey PA Unavailable Unavailable HANIFIN M JOHN PA Unavailable Unavailable HANIFIN, M JOHN PA Unavailable Unavailable HANIFIN, M JOHN PA Unavailable Unavailable HANIFIN, M JOHN PA Unavailable Unavailable HANIFIN, M JOHN PA Unavailable Unavailable HANIFIN, M JOHN PA Unavailable Unavailable HANIFIN, M JOHN PA Unavailable Unavailable HANIFIN, M JOHN PA Unavailable Unavailable HANIFIN, M JOHN PA Unavailable Unavailable HANIFIN, M JOHN PA Unavailable Unavailable HANIFIN, M JOHN PA Unavailable Unavailable HANIFIN, M JOHN PA Unavailable Unavailable HANIFIN, M JOHN PA Unavailable Unavailable HANIFIN, M JOHN PA Unavailable Unavailable HANIFIN, M JOHN PA Unavailable Unavailable HANIFIN, M JOHN PA Unavailable Unavailable HANIFIN, M JOHN PA Unavailable Unavailable HANIFIN, M JOHN PA Unavailable Unavailable HANIFIN, M JOHN PA Unavailable Unavailable HANIFIN, M JOHN PA Unavailable Unavailable HANIFIN, M JOHN PA Unavailable Unavailable HANIFIN, M JOHN PA Unavailable Unavailable HANIFIN, M JOHN PA Unavailable Unavailable HANIFIN, M JOHN PA Unavailable Unavailable HANIFIN, M JOHN PA Unavailable Unavailable HANIFIN, M JOHN PA Unavailable Unavailable HANIFIN, M JOHN PA Unavailable Unavailable HANIFIN, M JOHN PA Unavailable Unavailable HANIFIN, M JOHN PA Unavailable Unavailable HANIFIN, M JOHN PA Unavailable Unavailable HANIFIN, M JOHN PA Unavailable Unavailable HANIFIN, M JOHN PA Unavailable Unavailable HANIFIN, M JOHN PA Unavailable Unavailable HANIFIN, M JOHN PA Unavailable Unavailable HANIFIN, M JOHN PA Unavailable Unavailable HANIFIN, M JOHN PA Unavailable Unavailable HANIFIN, M JOHN PA Unavailable Unavailable HANIFIN, M JOHN PA Unavailable Unavailable HANIFIN, M JOHN PA Unavailable Unavailable HANIFIN, M JOHN PA Unavailable Unavailable HANIFIN, M JOHN PA Unavailable Unavailable HANIFIN, M JOHN PA Unavailable Unavailable HANIFIN, M JOHN PA Unavailable Unavailable HANIFIN, M JOHN PA Unavailable Unavailable HANIFIN, M JOHN PA Unavailable Unavailable HANIFIN, M JOHN PA Unavailable Unavailable HANIFIN, M JOHN PA Unavailable Unavailable HANIFIN, M JOHN PA Unavailable Unavailable HANIFIN, M JOHN PA Unavailable Unavailable HANIFIN, M JOHN PA Unavailable Unavailable HANIFIN, M JOHN PA Unavailable Unavailable HANIFIN, M JOHN PA Unavailable Unavailable HANIFIN, M JOHN PA Unavailable Unavailable INOCENTE, R Doug DIRECTOR OF AUDIOLOGY-C Unavailable Unavailable INOCENTE, R Doug DIRECTOR OF AUDIOLOGY-C Unavailable Unavailable INOCENTE, R Doug DIRECTOR OF AUDIOLOGY-C Unavailable Unavailable INOCENTE, R Doug DIRECTOR OF AUDIOLOGY-C Unavailable Unavailable INOCENTE, R Doug DIRECTOR OF AUDIOLOGY-C Unavailable Unavailable INOCENTE, R Doug DIRECTOR OF AUDIOLOGY-C Unavailable Unavailable INOCENTE, R Doug DIRECTOR OF AUDIOLOGY-C Unavailable Unavailable INOCENTE, R Doug DIRECTOR OF AUDIOLOGY-C Unavailable Unavailable INOCENTE, R Doug DIRECTOR OF AUDIOLOGY-C Unavailable Unavailable Lucero, Juana Mary PA Unavailable Unavailable Lucero, Juana Mary PA Unavailable Unavailable Lucero, Juana Mary PA Unavailable Unavailable Lucero, Juana Mary PA Unavailable Unavailable Lucero, Juana Mary PA Unavailable Unavailable Lucero, Juana Mary PA Unavailable Unavailable Lucero, Juana Mary PA Unavailable Unavailable Lucero, Juana Mary PA Unavailable Unavailable Lucero, Juana Mary PA Unavailable Unavailable Lucero, Juana Mary PA Unavailable Unavailable Lucero, Juana Mary PA Unavailable Unavailable Lucero, Juana Mary PA Unavailable Unavailable Lucero, Juana Mary PA Unavailable Unavailable Lucero, Juana Mary PA Unavailable Unavailable Lucero, Juana Mary PA Unavailable Unavailable Lucero, Juana Mary PA Unavailable Unavailable Lucero, Juana Mary PA Unavailable Unavailable Lucero, Juana Mary PA Unavailable Unavailable Lucero, Juana Mary PA Unavailable Unavailable Lucero, Juana Mary PA Unavailable Unavailable Lucero, Juana Mary PA Unavailable Unavailable Lucero, Juana Mary PA Unavailable Unavailable Lucero, Juana Mary PA Unavailable Unavailable Lucero, Juana Mary PA Unavailable Unavailable Lucero, Juana Mary PA Unavailable Unavailable Lucero, Juana Mary PA Unavailable Unavailable Lucero, Juana Mary PA Unavailable Unavailable Lucero, Juana Mary PA Unavailable Unavailable Lucero, Juana Mary PA Unavailable Unavailable Lucero, Juana Mary PA Unavailable Unavailable Lucero, Juana Mary PA Unavailable Unavailable Lucero, Juana Mary PA Unavailable Unavailable Lucero, Juana Mary PA Unavailable Unavailable Lucero, Juana Mary PA Unavailable Unavailable Abner James MD Unavailable Unavailable Abner James MD Unavailable Unavailable Abner James MD Unavailable Unavailable Abner James MD Unavailable Unavailable Abner James MD Unavailable Unavailable Abner James MD Unavailable Unavailable Abner James MD Unavailable Unavailable Abner James MD Unavailable Unavailable Abner James MD Unavailable Unavailable Abner James MD Unavailable Unavailable Abner James MD Unavailable Unavailable Greenky, S Nic MD Unavailable Unavailable Greenky, S Nic MD Unavailable Unavailable Greenky, S Nic MD Unavailable Unavailable Greenky, S Nic MD Unavailable Unavailable Greenky, S Nic MD Unavailable Unavailable Greenky, S Nic MD Unavailable Unavailable Greenky, S Nic MD Unavailable Unavailable Greenky, S Nic MD Unavailable Unavailable Greenky, S Nic MD Unavailable Unavailable Greenky, S Nic MD Unavailable Unavailable Greenky, S Nic MD Unavailable Unavailable Greenky, S Nic MD Unavailable Unavailable Greenky, S Nic MD Unavailable Unavailable Greenky, S Nic MD Unavailable Unavailable Greenky, S Nic MD Unavailable Unavailable Greenky, S Nic MD Unavailable Unavailable Greenky, S Nic MD Unavailable Unavailable Greenky, S Nic MD Unavailable Unavailable Greenky, S Nic MD Unavailable Unavailable Greenky, S Nic MD Unavailable Unavailable Greenky, S Nic MD Unavailable Unavailable Greenky, S Nic MD Unavailable Unavailable Greenky, S Nic MD Unavailable Unavailable Greenky, S Nic MD Unavailable Unavailable Greenky, S Nic MD Unavailable Unavailable Greenky, S Nic MD Unavailable Unavailable Greenky, S Nic MD Unavailable Unavailable Greenky, S Nic MD Unavailable Unavailable Greenky, S Nic MD Unavailable Unavailable Greenky, S Nic MD Unavailable Unavailable Greenky, S Nic MD Unavailable Unavailable Greenky, S Nic MD Unavailable Unavailable Greenky, S Nic MD Unavailable Unavailable Greenky, S Nic MD Unavailable Unavailable Greenky, S Nic MD Unavailable Unavailable Greenky, S Nic MD Unavailable Unavailable Greenky, S Nic MD Unavailable Unavailable Greenky, S Nic MD Unavailable Unavailable Greenky, S Nic MD Unavailable Unavailable Greenky, S Nic MD Unavailable Unavailable Greenky, S Nic MD Unavailable Unavailable Greenky, S Nic MD Unavailable Unavailable Greenky, S Nic MD Unavailable Unavailable Greenky, S Nic MD Unavailable Unavailable Greenky, S Nic MD Unavailable Unavailable Greenky, S Nic MD Unavailable Unavailable Greenky, S Nic MD Unavailable Unavailable Greenky, S Nic MD Unavailable Unavailable Greenky, S Nic MD Unavailable Unavailable Greenky, S Nic MD Unavailable Unavailable Greenky, S Nic MD Unavailable Unavailable Greenky, S Nic MD Unavailable Unavailable Greenky, S Nic MD Unavailable Unavailable Greenky, S Nic MD Unavailable Unavailable Greenky, S Nic MD Unavailable Unavailable Greenky, S Nic MD Unavailable Unavailable Greenky, S Nic MD Unavailable Unavailable Greenky, S Nic MD Unavailable Unavailable Greenky, S Nic MD Unavailable Unavailable Greenky, S Nic MD Unavailable Unavailable Greenky, S Nic MD Unavailable Unavailable Greenky, S Nic MD Unavailable Unavailable Greenky, S Nic MD Unavailable Unavailable Greenky, S Nic MD Unavailable Unavailable Greenky, S Nic MD Unavailable Unavailable Greenky, S Nic MD Unavailable Unavailable Greenky, S Nic MD Unavailable Unavailable Greenky, S Nic MD Unavailable Unavailable Greenky, S Nic MD Unavailable Unavailable Greenky, S Nic MD Unavailable Unavailable Greenky, S Nic MD Unavailable Unavailable Greenky, S Nic MD Unavailable Unavailable Greenky, S Nic MD Unavailable Unavailable Greenky, S Nic MD Unavailable Unavailable Greenky, S Nic MD Unavailable Unavailable Greenky, S Nic MD Unavailable Unavailable Greenky, S Nic MD Unavailable Unavailable Greenky, S Nic MD Unavailable Unavailable Re-disclosure Warning The records that you are about to access may contain information from federally-assisted alcohol or drug abuse programs. If such information is present, then the following federally mandated warning applies: This information has been disclosed to you from records protected by federal confidentiality rules (42 CFR part 2). The federal rules prohibit you from making any further disclosure of this information unless further disclosure is expressly permitted by the written consent of the person to whom it pertains or as otherwise permitted by 42 CFR part 2. A general authorization for the release of medical or other information is NOT sufficient for this purpose. The Federal rules restrict any use of the information to criminally investigate or prosecute any alcohol or drug abuse patient.The records that you are about to access may contain highly sensitive health information, the redisclosure of which is protected by Article 27-F of the [facility] Public Health law. If you continue you may have access to information: Regarding HIV / AIDS; Provided by facilities licensed or operated by the [facility] Office of Mental Health; or Provided by the [facility] Office for People With Developmental Disabilities. If such information is present, then the following [facility] mandated warning applies: This information has been disclosed to you from confidential records which are protected by state law. State law prohibits you from making any further disclosure of this information without the specific written consent of the person to whom it pertains, or as otherwise permitted by law. Any unauthorized further disclosure in violation of state law may result in a fine or care home sentence or both. A general authorization for the release of medical or other information is NOT sufficient authorization for further disc losure. Allergies and Adverse Reactions Type Description Substance Reaction Status Data Source(s ) Propensity to adverse reactions NO KNOWN ALLERGIES NO KNOWN ALLERGIES [facility] Propensity to adverse reactions SALMETEROL SALMETEROL [facility] Propensity to adverse reactions FORMOTEROL FORMOTEROL [facility] Drug allergy FLUTICASONE-SALMETEROL FLUTICASONE-SALMETEROL [facility] Propensity to adverse reactions SULFA ANTIBIOTICS SULFA ANTIBIOT ICS Swelling High Other [facility] Propensity to adverse reactions PENICILLINS Penicillin Hives [facility] Propensity to adverse reactions CIPROFLOXACIN Ciprofloxacin Other [facility] Propensity to adverse reactions BUDESONIDE BUDESONIDE Other [facility] Propensity to adverse reactions FLUTICASONE FLUTICASONE [facility] Family History Family Member Name Family Member Gender Family Member Status Date o f Status Description Data Source(s) Unknown Unknown Problem MEDENT ([facility]) father Unknown Unknown Problem MEDENT ([facility]) Unknown Female Problem MEDENT ([facility]) Encounters Encounter Providers Location Date Indications Data Source(s ) Outpatient Attender: Nic James MDReferrer: Anjel Cummings MD 01/19/2021 06:34:31 AM EDT [facility] Outpatient Attender: NEHEMIAS MARIEE MDReferrer: Anjel Cummings MD 01/14/2021 04:06:17 PM EDT [facility] Outpatient Attender: Mary Barker PAReferrer: NEHEMIAS Oconnor MD 01/14/2021 09:19:29 AM EDT [facility] Outpatient [address] [facility] [id number] 01/14/2021 12:00:00 AM EDT eCW1 ([facility]) Recurring Patient Referrer: NEHEMIAS MARIEE MD 01/13/2021 12: 00:52 PM EDT [facility] Recurring Patient Referrer: NEHEMIAS MARIEE MD 01/13/2021 11: 57:18 AM EDT [facility] Recurring Patient Referrer: NEHEMIAS MARIEE MD 01/13/2021 11: 57:12 AM EDT [facility] Recurring Patient Referrer: NEHEMIAS MARIEE MD 01/13/2021 09: 21:08 AM EDT [facility] Recurring Patient Referrer: NEHEMIAS MARIEE MD 01/12/2021 02: 14:37 PM EDT [facility] Recurring Patient Referrer: Anjel Cummings MD 01/12/2021 01 :16:48 PM EDT [facility] Unknown [address], [facility] [address] 01/05/2021 12:00:00 AM EDT eCW1 ([facility]) Outpatient Attender: DAVID VALDEZ [facility] Office 12/09 02:15:00 PM EDT MEDENT ([facility] Outpatient Attender: HALLIE REY PAReferrer: Anjel ford MD 01/04/2021 06:59:47 AM EDT [facility] Recurring Patient Referrer: nAjel Cummings MD 12/27/2020 02 :49:10 PM EDT [facility] Outpatient Attender: JOHN CLARKE PAReferrer: Anjel currie MD 12/22/2020 07:39:35 AM EDT [facility] Outpatient Attender: DAVID VALDEZ [facility] Office 11/09 02:15:00 PM EDT MED[facility] ([facility] Outpatient Attender: Nic ROBLEDOeferrer: Anjel Cummings MD 12/07/2020 08:09:00 AM EDT [facility] Unknown [address] [facility] [address] [facility] [facility] [id number] 12/06/2020 12:00:00 AM EDT eCW1 ([facility]) Outpatient Attender: FAYE ORTIZ PAReferrer: Anjel Cummings MD 11/23/2020 05:29:58 PM EDT [facility] Outpatient Attender: Hema WILSON-CReferrer: Anjel Booker dd, MD 09/02/2020 10:27:15 AM EDT [facility] Outpatient Attender: Hema WILSON-CReferrer: Anjel Booker dd, MD 07/08/2020 07:19:13 AM EDT [facility] Outpatient [address] [facility] [address] 07/08/2020 12:00:00 AM EDT eCW1 ([facility]) Recurring Patient Referrer: Anjel Cummings MD 07/06/2020 02 :37:36 PM EDT [facility] Recurring Patient Referrer: Anjel Cummings MD 07/01/2020 02 :56:48 PM EDT [facility] Recurring Patient Referrer: Anjel Cummings MD 07/01/2020 02 :56:19 PM EDT [facility] [place] [address] [address] 06/06/2020 12:00:00 AM EST eCW1 ([facility]) Office Visit, Est Pt., Level 3 PC [address] [place] [address] 06/01/2020 12:00:00 AM EST eCW1 ([facility]) Unknown [address] [facility] [address] 05/31/2020 12:00:00 AM EST eCW1 ([facility]) Unknown [address] [address] 05/25/2020 12:00:00 AM EST eCW1 ([facility]) [place] [address] [facility] [place] [address] 05/25/2020 12:00:00 AM EST eCW1 ([facility]) Unknown [address] [facility] [address] [address] 04/27/2020 12:00:00 AM EST [facility]CW1 ([facility]) Unknown [address] [facility] [address] 03/16/2020 12:00:00 AM EST eCW1 ([facility]) [place] [address] [address] 02/12/2020 12:00:00 AM EST eCW1 ([facility]) Inpatient Attender: López Kulkarni ter: López DhaliwalReferrer: Doug BROWER DIRECTOR OF AUDIOLOGY-C [id number] 01/29/2020 12:00:00 AM EDT - 01/31/2020 01:28:00 PM EDT Essential (primary) hypertension [facility] Essential (primary) hypertension Patient discharged. [place] [address] [facility] [address] [address] 01/15/2020 12:00:00 AM EDT eCW1 ([facility]) Recurring Patient Referrer: Anjel Cummings MD 12/30/2019 02 :38:20 PM EDT [facility] Immunizations Vaccine Date Status Description Data Source(s) COVID-19 VACC, MRNA(PFIZER)/PF 01/31/2021 12:00:00 AM EDT completed [facility] influenza, recombinant, quadrIvalent,injectable, prese rvative free 01/14/2021 02:41:00 PM EDT completed eCW1 ([facility]) pneumococcal polysaccharide PPV23 07/08/2020 08:54:00 AM EDT comple eric eCW1 ([facility]) pneumococcal polysaccharide PPV23 07/08/2020 08:54:00 AM EDT comple eric eCW1 ([facility]) pneumococcal polysaccharide PPV23 07/08/2020 08:54:00 AM EDT comple eric eCW1 ([facility]) COVID-19 dose #2 given elsewhere Unspecified 06/06/2020 11:3 6:00 PM EST completed eCW1 ([facility]) COVID-19 dose #2 given elsewhere Unspecified 06/06/2020 11:3 6:00 PM EST completed eCW1 ([facility]) COVID-19 dose #2 given elsewhere Unspecified 06/06/2020 11:3 6:00 PM EST completed eCW1 ([facility]) COVID-19 dose #2 given elsewhere Unspecified 06/06/2020 11:3 6:00 PM EST completed eCW1 ([facility]) COVID-19 VACCINE Pfizer 06/06/2020 12:00:00 AM EST completed [facility] Vaccine Series Complete: YESThis Data wa s Submitted to [facility] Via [employer]. COVID-19 dose #1 given elsewhere Unspecified 05/16/2020 11:3 6:00 PM EST completed eCW1 ([facility]) COVID-19 dose #1 given elsewhere Unspecified 05/16/2020 11:3 6:00 PM EST completed eCW1 ([facility]) COVID-19 dose #1 given elsewhere Unspecified 05/16/2020 11:3 6:00 PM EST completed eCW1 ([facility]) COVID-19 dose #1 given elsewhere Unspecified 05/16/2020 11:3 6:00 PM EST completed eCW1 ([facility]) COVID-19 VACCINE Pfizer 05/16/2020 12:00:00 AM EST completed [facility] Vaccine Series Complete: NOThis Data was Submitted to [facility] Via [employer]. influenza, recombinant, quadrIvalent,injectable, prese rvative free 01/15/2020 07:30:00 AM EDT completed eCW1 ([facility]) influenza, recombinant, quadrIvalent,injectable, prese rvative free 01/15/2020 07:30:00 AM EDT completed eCW1 ([facility]) influenza, recombinant, quadrIvalent,injectable, prese rvative free 01/15/2020 07:30:00 AM EDT completed eCW1 ([facility]) influenza, recombinant, quadrIvalent,injectable, prese rvative free 01/15/2020 07:30:00 AM EDT completed eCW1 ([facility]) influenza, recombinant, quadrIvalent,injectable, prese rvative free 01/15/2020 07:30:00 AM EDT completed eCW1 ([facility]) influenza, recombinant, quadrIvalent,injectable, prese rvative free 01/15/2020 07:30:00 AM EDT completed eCW1 ([facility]) influenza, recombinant, quadrIvalent,injectable, prese rvative free 01/15/2020 07:30:00 AM EDT completed eCW1 ([facility]) influenza, recombinant, quadrIvalent,injectable, prese rvative free 01/15/2020 07:30:00 AM EDT completed eCW1 ([facility]) influenza, recombinant, quadrIvalent,injectable, prese rvative free 01/15/2020 07:30:00 AM EDT completed eCW1 ([facility]) influenza, recombinant, quadrIvalent,injectable, prese rvative free 01/15/2020 07:30:00 AM EDT completed eCW1 ([facility]) influenza, recombinant, quadrIvalent,injectable, prese rvative free 01/15/2020 07:30:00 AM EDT completed eCW1 ([facility]) influenza, recombinant, quadrIvalent,injectable, prese rvative free 01/15/2020 07:30:00 AM EDT completed eCW1 ([facility]) influenza, recombinant, quadrIvalent,injectable, prese rvative free 01/15/2020 07:30:00 AM EDT completed eCW1 ([facility]) Medications Medication Brand Name Start Date Product Form Dose Route Admi nistrative Instructions Pharmacy Instructions Status Indications Reaction Description Data Source(s) 300 mg 01/14/2021 12:00:00 AM EDT capsule 360 TAKE TWO CAPSULES BY MOUTH DAILY AT 8:00 IN THE MORNING AND 10:00 IN THE EVENING TAKE TWO CAPSULES BY MOUTH DAILY AT 8:00 IN THE MORNING AND 10:00 IN THE EVENING SOLD: 01/19/2021 [facility] 50 mg 01/14/2021 12:00:00 AM EDT tablet 90 TAKE ONE TABLET BY MOUTH EVERY EVENING TAKE ONE TABLET BY MOUTH EVERY EVENING SOLD: 01/19/2021 [facility] 4 mg 12/21/2020 12:00:00 AM EDT tablets,dose pack 21 TAKE BY MOUTH DIRECTED TAKE BY MOUTH DIRECTED SOLD: 12/23/2020 [facility] 1.25 mg/3 mL 12/10/2020 12:00:00 AM EDT solution for nebuliz ation 90 INHALE ONE VIAL VIA NEBULIZER THREE TIMES A DAY INHALE ONE VIAL VIA NEBULIZER THREE TIMES A DAY SOLD: 12/23/2020 [facility] 10 mg 12/09/2020 12:00:00 AM EDT tablet 54 TAKE 6 TABLETS BY MOUTH ONCE DAILY FOR 3 DAYS, 5 TABLETS DAILY FOR 3 DAYS, 4 TABLETS DAILY FOR 3 DAYS, 2 TABLETS DAILY FOR 3 DAYS, THEN 1 TABLET DAILY FOR 3 DAYS TAKE 6 TABLETS BY MOUTH ONCE DAILY FOR 3 DAYS, 5 TABLETS DAILY FOR 3 DAYS, 4 TABLETS DAILY FOR 3 DAYS, 2 TABLETS DAILY FOR 3 DAYS, THEN 1 TABLET DAILY FOR 3 DAYS SOLD: 12/09/2020 [facility] 500 mg 12/09/2020 12:00:00 AM EDT tablet 10 TAKE ONE TABLET BY MOUTH EVERY DAY FOR 10 DAYS TAKE ONE TABLET BY MOUTH EVERY DAY FOR 10 DAYS SOLD: [facility] Olmesartan medoxomil 40 MG Oral Tablet OLMESARTAN MEDOXOMIL 12/08/2020 12:00:00 AM EDT tablet 90 TAKE ONE TABLET BY MOUTH JEANNINE TAKE ONE TABLET BY MOUTH EVERY DAY SOLD: 12/08/2020 [facility] montelukast 10 MG Oral Tablet MONTELUKAST SODIUM 12/08/2020 12:0 0:00 AM EDT tablet 90 TAKE ONE TABLET BY MOUTH EVERY E VENING AT BEDTIME TAKE ONE TABLET BY MOUTH EVERY EVENING AT BEDTIME SOLD: 12/08/2020 [facility] 40 mg 12/08/2020 12:00:00 AM EDT capsule,delayed release (DR/EC) 90 TAKE ONE CAPSULE BY MOUTH EVERY DAY TAKE ONE CAPSULE BY MOUTH EVERY DAY SOLD: 12/08/2020 [facility] 10 mg 12/08/2020 12:00:00 AM EDT tablet 90 TAKE ONE TABLET BY MOUTH EVERY DAY TAKE ONE TABLET BY MOUTH EVERY DAY SOLD: 12/08/2020 [facility] Inject Dexamthosone Phosphate 73637-085-82 12/07/2020 12:00:00 A M EDT completed [facility] ([facility] Medication administered onsite Inject Triamcinolone Acetonide 10 ML, [facility] [id number] 12/07/2020 12:00:00 AM EDT completed [facility] ([facility] Medication administered onsite 10 mg 09/16/2020 12:00:00 AM EDT tablet 90 TAKE ONE TABLET BY MOUTH EVERY DAY TAKE ONE TABLET BY MOUTH EVERY DAY SOLD: 09/17/2020 [facility] 40 mg 08/15/2020 12:00:00 AM EDT capsule,delayed release (DR/EC) 90 TAKE ONE CAPSULE BY MOUTH EVERY DAY TAKE ONE CAPSULE BY MOUTH EVERY DAY SOLD: 08/19/2020 [facility] tramadol hydrochloride 50 MG Oral Tablet traMADol HCl 50 MG traMADol HCl 50 MG 06/09/2020 12:00:00 AM EST 1.0 {tablet_as_needed} suspended traMADol HCl 50 MG eCW1 ([facility]) 50 mg 06/09/2020 12:00:00 AM EST tablet 21 TAKE ONE TABLET BY MOUTH THREE TIMES A DAY NEEDED MAXIMUM DAILY DOSE = 3 TAKE ONE TABLET BY MOUTH THREE TIMES A DAY NEEDED MAXIMUM DAILY DOSE = 3 SOLD: 06/10/2020 [facility] tramadol hydrochloride 50 MG Oral Tablet Tramadol HCl 50 MG Tramadol HCl 50 MG 06/09/2020 12:00:00 AM EST 1.0 {tablet_as_needed} active Tramadol HCl 50 MG eCW1 ([facility]) tramadol hydrochloride 50 MG Oral Tablet traMADol HCl 50 MG traMADol HCl 50 MG 06/09/2020 12:00:00 AM EST 1.0 {tablet_as_needed} suspended traMADol HCl 50 MG eCW1 ([facility]) tramadol hydrochloride 50 MG Oral Tablet Tramadol HCl 50 MG Tramadol HCl 50 MG 06/09/2020 12:00:00 AM EST 1.0 {tablet_as_needed} suspended Tramadol HCl 50 MG eCW1 ([facility]) Olmesartan medoxomil 40 MG Oral Tablet OLMESARTAN MEDOXOMIL 06/05/2020 12:00:00 AM EST tablet 90 TAKE ONE TABLET BY MOUTH JEANNINE RY DAY TAKE ONE TABLET BY MOUTH EVERY DAY SOLD: 09/09/2020 [facility] Olmesartan medoxomil 40 MG Oral Tablet OLMESARTAN MEDOXOMIL 06/05/2020 12:00:00 AM EST tablet 90 TAKE ONE TABLET BY MOUTH JEANNINE RY DAY TAKE ONE TABLET BY MOUTH EVERY DAY SOLD: 06/08/2020 [facility] Cyclobenzaprine hydrochloride 10 MG Oral Tablet Cyclob enzaprine HCl 10 MG Cyclobenzaprine HCl 10 MG 06/01/2020 12:00:00 AM EST 1.0 {tablet} suspended Cyclobenzaprine HCl 10 MG eCW1 ( [facility]) Cyclobenzaprine hydrochloride 10 MG Oral Tablet CYCLOBENZAPR INE HCL 06/01/2020 12:00:00 AM EST tablet 30 TAKE ONE TABLET BY MOUTH THREE TIMES A DAY NEEDED TAKE ONE TABLET BY MOUTH THREE TIMES A DAY NEEDED SOLD: 06/01/2020 [facility] Prednisone 20 MG Oral Tablet PredniSONE 20 MG PredniSONE 20 MG 06/01/2020 12:00:00 AM EST 2.0 {tablets} active P redniSONE 20 MG eCW1 ([facility]) Cyclobenzaprine hydrochloride 10 MG Oral Tablet Cyclob enzaprine HCl 10 MG Cyclobenzaprine HCl 10 MG 06/01/2020 12:00:00 AM EST 1.0 {tablet} active Cyclobenzaprine HCl 10 MG eCW1 ( [facility]) Cyclobenzaprine hydrochloride 10 MG Oral Tablet Cyclob enzaprine HCl 10 MG Cyclobenzaprine HCl 10 MG 06/01/2020 12:00:00 AM EST 1.0 {tablet} active Cyclobenzaprine HCl 10 MG eCW1 ( [facility]) Cyclobenzaprine hydrochloride 10 MG Oral Tablet Cyclob enzaprine HCl 10 MG Cyclobenzaprine HCl 10 MG 06/01/2020 12:00:00 AM EST 1.0 {tablet} suspended Cyclobenzaprine HCl 10 MG eCW1 ( [facility]) Prednisone 20 MG Oral Tablet predniSONE 20 MG predniSONE 20 MG 06/01/2020 12:00:00 AM EST 2.0 {tablets} suspended predniSONE 20 MG eCW1 ([facility]) Prednisone 20 MG Oral Tablet predniSONE 20 MG predniSONE 20 MG 06/01/2020 12:00:00 AM EST 2.0 {tablets} suspended predniSONE 20 MG eCW1 ([facility]) Prednisone 20 MG Oral Tablet PredniSONE 20 MG PredniSONE 20 MG 06/01/2020 12:00:00 AM EST 2.0 {tablets} active P redniSONE 20 MG eCW1 ([facility]) Cyclobenzaprine hydrochloride 10 MG Oral Tablet Cyclob enzaprine HCl 10 MG Cyclobenzaprine HCl 10 MG 06/01/2020 12:00:00 AM EST 1.0 {tablet} active Cyclobenzaprine HCl 10 MG eCW1 ( [facility]) Cyclobenzaprine hydrochloride 10 MG Oral Tablet Cyclob enzaprine HCl 10 MG Cyclobenzaprine HCl 10 MG 06/01/2020 12:00:00 AM EST 1.0 {tablet} suspended Cyclobenzaprine HCl 10 MG eCW1 ( [facility]) Prednisone 20 MG Oral Tablet PredniSONE 20 MG PredniSONE 20 MG 06/01/2020 12:00:00 AM EST 2.0 {tablets} suspended PredniSONE 20 MG eCW1 ([facility]) Prednisone 20 MG Oral Tablet PredniSONE 20 MG PredniSONE 20 MG 06/01/2020 12:00:00 AM EST 2.0 {tablets} active P redniSONE 20 MG eCW1 ([facility]) Cyclobenzaprine hydrochloride 10 MG Oral Tablet Cyclob enzaprine HCl 10 MG Cyclobenzaprine HCl 10 MG 06/01/2020 12:00:00 AM EST 1.0 {tablet} active Cyclobenzaprine HCl 10 MG eCW1 ( [facility]) Prednisone 20 MG Oral Tablet PredniSONE 20 MG PredniSONE 20 MG 06/01/2020 12:00:00 AM EST 2.0 {tablets} active P redniSONE 20 MG eCW1 ([facility]) 20 mg 06/01/2020 12:00:00 AM EST tablet 10 TAKE TWO TABLETS BY MOUTH ONCE DAILY FOR 5 DAYS TAKE TWO TABLETS BY MOUTH ONCE DAILY FOR 5 DAYS SOLD: 06/01/2020 [facility] 100 mg 05/06/2020 12:00:00 AM EST capsule 14 TAKE ONE CAPSULE BY MOUTH TWICE A DAY FOR 7 DAYS TAKE ONE CAPSULE BY MOUTH TWICE A DAY FOR 7 DAYS SOLD: 05/06/2020 [facility] 200 mg 05/06/2020 12:00:00 AM EST tablet 6 TAKE ONE TABLET BY MOUTH THREE TIMES A DAY FOR 2 DAYS TAKE ONE TABLET BY MOUTH THREE TIMES A DAY FOR 2 DAYS SOLD: 05/06/2020 [facility] montelukast 10 MG Oral Tablet MONTELUKAST SODIUM 04/28/2020 12:0 0:00 AM EST tablet 90 TAKE ONE TABLET BY MOUTH AT BEDT ANITRA TAKE ONE TABLET BY MOUTH AT BEDTIME SOLD: 05/05/2020 [facility] montelukast 10 MG Oral Tablet MONTELUKAST SODIUM 04/28/2020 12:0 0:00 AM EST tablet 90 TAKE ONE TABLET BY MOUTH AT BEDT ANITRA TAKE ONE TABLET BY MOUTH AT BEDTIME SOLD: 08/02/2020 [facility] Olmesartan medoxomil 40 MG Oral Tablet OLMESARTAN MEDOXOMIL 03/25/2020 12:00:00 AM EST tablet 90 TAKE ONE TABLET BY MOUTH JEANNINE RY DAY TAKE ONE TABLET BY MOUTH EVERY DAY SOLD: 03/25/2020 [facility] 10 mg 03/17/2020 12:00:00 AM EST tablet 90 TAKE ONE TABLET BY MOUTH EVERY DAY TAKE ONE TABLET BY MOUTH EVERY DAY SOLD: 06/21/2020 [facility] ezetimibe 10 MG Oral Tablet EZETIMIBE 03/17/2020 12:00:00 AM EST table t 90 TAKE ONE TABLET BY MOUTH EVERY DAY TAKE ONE TABLET BY MOUTH EVERY DAY SOLD: 03/25/2020 [facility] Esomeprazole 40 MG Delayed Release Oral Capsule ESOMEPRAZOLE MAGNESIUM 03/08/2020 12:00:00 AM EST capsule,delayed release(DR/EC) 90 TAKE ONE CAPSULE BY MOUTH EVERY DAY TAKE ONE CAPSULE BY MOUTH EVERY DAY SOLD: 03/10/2020 [facility] montelukast 10 MG Oral Tablet MONTELUKAST SODIUM 03/08/2020 12:0 0:00 AM EST tablet 30 TAKE ONE TABLET BY MOUTH EVERY D AY AT BEDTIME TAKE ONE TABLET BY MOUTH EVERY DAY AT BEDTIME SOLD: 03/10/2020 [facility] 25-100 mg 03/05/2020 12:00:00 AM EST tablet extended release 30 TAKE ONE TABLET BY MOUTH EVERY EVENING TAKE ONE TABLET BY MOUTH EVERY EVENING SOLD: 03/10/2020 [facility] 100 mcg/actuation 02/13/2020 12:00:00 AM EST blister with de vice 30 INHALE ONE PUFF BY MOUTH EVERY DAY INHALE ONE PUFF BY MOUTH EVERY DAY SOLD: 06/21/2020 [facility] 100 mcg/actuation 02/13/2020 12:00:00 AM EST blister with de vice 30 INHALE ONE PUFF BY MOUTH EVERY DAY INHALE ONE PUFF BY MOUTH EVERY DAY SOLD: 03/25/2020 [facility] 100 mcg/actuation 02/13/2020 12:00:00 AM EST blister with de vice 30 INHALE ONE PUFF BY MOUTH EVERY DAY INHALE ONE PUFF BY MOUTH EVERY DAY SOLD: 02/18/2020 [facility] 100 mcg/actuation 02/13/2020 12:00:00 AM EST blister with de vice 30 INHALE ONE PUFF BY MOUTH EVERY DAY INHALE ONE PUFF BY MOUTH EVERY DAY SOLD: 12/09/2020 [facility] 100 mcg/actuation 02/13/2020 12:00:00 AM EST blister with de vice 30 INHALE ONE PUFF BY MOUTH EVERY DAY INHALE ONE PUFF BY MOUTH EVERY DAY SOLD: 09/29/2020 [facility] Prednisone 20 MG Oral Tablet predniSONE 20 MG Oral Tab let (DELTASONE) predniSONE 20 MG Oral Tablet (DELTASONE) 02/01/2020 12:00:00 AM EDT 60 mg Ora l active Take 3 tablets by mouth daily f or 4 days [facility] Levofloxacin 500 MG Oral Tablet levoFLOXacin (LEVAQUIN ) tablet 500 mg levoFLOXacin (LEVAQUIN) tablet 500 mg 01/31/2020 10:00:00 AM EDT 50 0 mg Oral completed 500 mg, Oral, O nce, 01/31/20 at 1000, For 1 dose
Administer 2 hours before or 4 hours after oral magnesium, calcium, iron, and sucralfate.
Discouraged Uses: Treatment of UTI
[facility] Medication administered onsite buspirone hydrochloride 7.5 MG Oral Tablet busPIRone ( BUSPAR) tablet 7.5 mg busPIRone (BUSPAR) tablet 7.5 mg 01/31/2020 10:00:00 AM EDT 7.5 mg Oral active 7.5 mg, Oral, Three Times Daily Standard, First dose on 01/31/20 at 1000, For 30 days [facility] Medication administered onsite predniSONE (DELTASONE) tablet 60 mg 01/31/2020 09:00:00 AM EDT 60 mg Oral active 60 mg, Oral, Alaeh ly Standard, First dose on Sun01/31/20 at 0900, For 5 days
Take with food
[facility] Medication administered onsite Levofloxacin 500 MG Oral Tablet levoFLOXacin 500 MG Or al Tablet (LEVAQUIN) levoFLOXacin 500 MG Oral Tablet (LEVAQUIN) 01/31/2020 12:00:00 AM EDT 500 mg Oral active Take 1 tablet by karissa th daily for 7 days [facility] 7.5 mg 01/31/2020 12:00:00 AM EDT tablet 90 TAKE ONE TABLET BY MOUTH THREE TIMES A DAY TAKE ONE TABLET BY MOUTH THREE TIMES A DAY SOLD: 01/31/2020 [email or web address] buspirone hydrochloride 7.5 MG Oral Tabl et busPIRone HCl 7.5 MG Oral Tablet (BUSPAR) busPIRone HCl 7.5 MG Oral Tablet (BUSPAR) 01/31/2020 12:00:00 AM EDT 7.5 mg Oral active Take 1 tablet by mouth T hree times daily [facility] 20 mg 01/31/2020 12:00:00 AM EDT tablet 12 TAKE THREE TABLETS BY MOUTH EVERY DAY FOR 4 DAYS TAKE THREE TABLETS BY MOUTH EVERY DAY FOR 4 DAYS SOLD: 01/31/2020 [facility] 500 mg 01/31/2020 12:00:00 AM EDT tablet 7 TAKE ONE TABLET BY MOUTH EVERY DAY FOR 7 DAYS TAKE ONE TABLET BY MOUTH EVERY DAY FOR 7 DAYS SOLD: 01/31/2020 [facility] ezetimibe 10 MG Oral Tablet ezetimibe (ZETIA) tablet 1 0 mg ezetimibe (ZETIA) tablet 10 mg 01/30/2020 10:00:00 PM EDT 10 mg Oral activ e 10 mg, Oral, Nightly, First dose on Sun01/30/20 at 2200, For 30 days [facility] Medication administered onsite montelukast 10 MG Oral Tablet montelukast (SINGULAIR) tablet 10 mg montelukast (SINGULAIR) tablet 10 mg 01/30/2020 10:00:00 PM EDT 10 mg Oral active 10 mg, Oral, Nightly, First dose on Sun01/30/20 at 2200, For 30 days [facility] Medication administered onsite dexamethasone sodium phosphate (DECADRON) 10 MG/ML PF injection 4 mg [id number] 01/30/2020 08:00:00 PM EDT 4 mg Intravenous completed 4 mg, Intravenous, Once, Sun01/30/20 at 2000, For 1 dose, [facility] Medication administered onsite fentaNYL (SUBLIMAZE) (PF) injection 25 mcg [id number] 01/30/2020 07:55:46 PM EDT 25 ug Intravenous active 25 m cg, Intravenous, Every 5 min PRN, Moderate Pain (Pain Scale Score 4-6), Starting Sun01/30/20 at 1955, For 4 doses, [facility] Medication administered onsite Albuterol 0.83 MG/ML Inhalant Solution a lbuterol (PROVENTIL) nebulizer solution 2.5 mg albuterol (PROVENTIL) nebulizer solution 2.5 mg 2019 07:55:46 PM EDT 2.5 mg Nebulization active 2.5 mg, Nebulization, Once PRN, Wheezing, Starting Sun01/30/20 at 1955, For 1 dose, [facility] Medication administered onsite fluticasone (FLONASE) 50 MCG/ACT nasal spray 1 spray [id number] 01/30/2020 01:15:00 PM EDT 1 {spray} Each Nare active 1 spray, Each Nare, Daily RT, First dose (after last modification) on Sun01/30/20 at 1315, For 30 days
Shake well before use
[facility] Medication administered onsite Bisacodyl 10 MG Rectal Suppository bisacodyl (DULCOLAX ) suppository 10 mg bisacodyl (DULCOLAX) suppository 10 mg 01/30/2020 12:00:00 AM EDT 10 mg Rectal active 10 mg, Rectal, Daily PRN, Constipation, Constipation, Starting Sun01/30/20 at 0000, For 30 days [facility] Medication administered onsite sennosides, MCFP 8.6 MG Oral Tablet senna tablet 2 tablet sen na tablet 2 tablet 01/30/2020 12:00:00 AM EDT 2 {tbl} Oral active 2 tablet, Oral, Nightly PRN, Constipation, Starting Sun01/30/20 at 0000, For 30 days [facility] Medication administered onsite pantoprazole 4 MG/ML Injectable Solution pantoprazole (PROTONIX) injection 40 mg pantoprazole (PROTONIX) injection 40 mg 01/29/2020 11:00:00 PM EDT 40 mg Intravenous active 40 mg, Intrav enous, Nightly, First dose (after last modification) on [facility] 01/29/20 at 2300, For 7 days
Dilute with 10 mL of 0.9% NaCl.Give IVP over 2 minutes. Flush before and after.
[facility] Medication administered onsite Primidone 50 MG Oral Tablet primidone (MYSOLINE) table t 50 mg primidone (MYSOLINE) tablet 50 mg 01/29/2020 11:00:00 PM EDT 50 mg Oral active 50 mg, Oral, Nightly, First dose (after last modification) on [facility] 01/29/20 at 2300, For 30 days [facility] Medication administered onsite Olmesartan medoxomil 20 MG Oral Tablet olmesartan (GLENDA ICAR) tablet 40 mg olmesartan (BENICAR) tablet 40 mg 01/29/2020 11:00:00 PM EDT 40 mg Oral active 40 mg, Oral, Nightly , First dose (after last modification) on [facility] 01/29/20 at 2300, For 30 doses [facility] Medication administered onsite buspirone hydrochloride 7.5 MG Oral Tablet busPIRone ( BUSPAR) tablet 7.5 mg busPIRone (BUSPAR) tablet 7.5 mg 01/29/2020 10:06:05 PM EDT 7.5 mg Oral active 7.5 mg, Oral, 2 Time s Daily PRN, anixety, Starting [facility] 01/29/20 at 2206, For 30 days [facility] Medication administered onsite gabapentin 300 MG Oral Capsule gabapentin (NEURONTIN) capsule 600 mg gabapentin (NEURONTIN) capsule 600 mg 01/29/2020 09:00:00 PM EDT 600 mg Oral active 600 mg, Oral, 2 Times Daily, First dose (after last modification) on [facility] 01/29/20 at 2100, For 30 days [facility] Medication administered onsite Docusate Sodium 100 MG Oral Capsule docusate sodium (C OLACE) capsule 100 mg docusate sodium (COLACE) capsule 100 mg 01/29/2020 09:00:00 PM EDT 100 mg Oral active 100 mg, Oral, 2 Times Daily, First dose on [facility] 01/29/20 at 2100, For 30 days [facility] Medication administered onsite morphine sulfate (PF) injection 4 mg [id number] 01/29/2020 08:43: 27 PM EDT 4 mg Intravenous active 4 mg, In travenous, Every 3 hours PRN, Severe Pain (Pain Scale Score 7-10), Breakthrough, Starting [facility] 01/29/20 at 2042, For 70 hours [facility] Medication administered onsite HYDROcodone-acetaminophen (LORTAB) 5-325 MG per tablet 1 tab let 01/29/2020 08:43:04 PM EDT 1 {tbl} Oral active [Order 1 Start] Name: HYDROcodone- acetaminophen (LORTAB) 5-325 MG per tablet 1 tablet Signed Summary: 1 tablet, Oral, Every 6 hours PRN, Moderate Pain (Pain Scale Score 4-6), Starting [facility] 01/29/20 at 2042, For 3 days
Maximum daily dose of acetaminophen is 3,000 mg from all sources in 24 hours.
[Order 1 End] [Order 2 Start] Name: HYDROcodone-acetaminophen (LORTAB) 5-325 MG per tablet 2 tablet Signed Summary: 2 tablet, Oral, Every 6 hours PRN, Severe Pain (Pain Scale Score 7-10), Starting [facility] 01/29/20 at 2042, For 3 days
Maximum daily dose of acetaminophen is 3,000 mg from all sources in 24 hours.
[Order 2 End] [facility] Medication administered onsite Acetaminophen 325 MG Oral Tablet acetaminophen (TYLENO L) tablet 650 mg acetaminophen (TYLENOL) tablet 650 mg 01/29/2020 06:58:08 PM EDT 65 0 mg Oral active 650 mg, Oral, E very 6 hours PRN, Mild Pain (Pain Scale Score 1- 3), Fever, Starting [facility] 01/29/20 at 1858, For 30 days
Maximum daily dose of acetaminophen is 3000 mg from all sources in 24 hours.
[facility] Medication administered onsite 50 mg 01/26/2020 12:00:00 AM EDT tablet 90 TAKE ONE TABLET BY MOUTH NIGHTLY TAKE ONE TABLET BY MOUTH NIGHTLY SOLD: 01/28/2020 [facility] 50 mg 01/26/2020 12:00:00 AM EDT tablet 90 TAKE ONE TABLET BY MOUTH NIGHTLY TAKE ONE TABLET BY MOUTH NIGHTLY SOLD: 11/05/2020 [facility] 50 mg 01/26/2020 12:00:00 AM EDT tablet 90 TAKE ONE TABLET BY MOUTH NIGHTLY TAKE ONE TABLET BY MOUTH NIGHTLY SOLD: 08/02/2020 [facility] 50 mg 01/26/2020 12:00:00 AM EDT tablet 90 TAKE ONE TABLET BY MOUTH NIGHTLY TAKE ONE TABLET BY MOUTH NIGHTLY SOLD: 05/05/2020 [facility] 300 mg 12/05/2019 12:00:00 AM EDT capsule 360 TAKE TWO CAPSULES BY MOUTH TWICE A DAY AT 8:00AM AND 10:00PM TAKE TWO CAPSULES BY MOUTH TWICE A DAY A T 8:00AM AND 10:00PM SOLD: 06/08/2020 [facility] 300 mg 12/05/2019 12:00:00 AM EDT capsule 360 TAKE TWO CAPSULES BY MOUTH TWICE A DAY AT 8:00AM AND 10:00PM TAKE TWO CAPSULES BY MOUTH TWICE A DAY A T 8:00AM AND 10:00PM SOLD: 12/07/2019 [facility] 300 mg 12/05/2019 12:00:00 AM EDT capsule 360 TAKE TWO CAPSULES BY MOUTH TWICE A DAY AT 8:00AM AND 10:00PM TAKE TWO CAPSULES BY MOUTH TWICE A DAY A T 8:00AM AND 10:00PM SOLD: 03/10/2020 [facility] 300 mg 12/05/2019 12:00:00 AM EDT capsule 360 TAKE TWO CAPSULES BY MOUTH TWICE A DAY AT 8:00AM AND 10:00PM TAKE TWO CAPSULES BY MOUTH TWICE A DAY A T 8:00AM AND 10:00PM SOLD: 09/09/2020 [facility] 50 mg 10/07/2019 12:00:00 AM EDT tablet 30 TAKE ONE TABLET BY MOUTH EVERY DAY AT BEDTIME TAKE ONE TABLET BY MOUTH EVERY DAY AT BEDTIME SOLD: 12/29/2019 [facility] Olmesartan medoxomil 40 MG Oral Tablet OLMESARTAN MEDOXOMIL 09/26/2019 12:00:00 AM EDT tablet 90 TAKE ONE TABLET BY MOUTH JEANNINE DAY TAKE ONE TABLET BY MOUTH EVERY DAY SOLD: 12/29/2019 [facility] ezetimibe 10 MG Oral Tablet EZETIMIBE 09/11/2019 12:00:00 AM EDT table t 90 TAKE ONE TABLET BY MOUTH EVERY DAY TAKE ONE TABLET BY MOUTH EVERY DAY SOLD: 12/11/2019 [facility] montelukast 10 MG Oral Tablet MONTELUKAST SODIUM 09/11/2019 12:0 0:00 AM EDT tablet 90 TAKE ONE TABLET BY MOUTH AT BEDT ANITRA TAKE ONE TABLET BY MOUTH AT BEDTIME SOLD: 12/11/2019 [facility] Esomeprazole 40 MG Delayed Release Oral Capsule ESOMEPRAZOLE MAGNESIUM 09/10/2019 12:00:00 AM EDT capsule,delayed release(DR/EC) 90 TAKE ONE CAPSULE BY MOUTH EVERY DAY TAKE ONE CAPSULE BY MOUTH EVERY DAY SOLD: 12/11/2019 [facility] buspirone hydrochloride 7.5 MG Oral Tabl et busPIRone HCl 7.5 MG Oral Tablet (BUSPAR) busPIRone HCl 7.5 MG Oral Tablet (BUSPAR) 7.5 mg Oral aborted Take 7.5 mg by mouth Two times daily as needed (anixety) [facility] Insurance Providers Payer name Policy type / Coverage type Policy ID Covered democrat ID Covered democrat's relationship to rodríguez Policy Rodríguez Plan Information [employer]OMCO [id number] SP [id number] [employer]OMCO [id number] SP [id number] [employer] [id number] 0 [id number] UMR U [id number] Self [id number] [employer] (pr) Commercial [id number] Self [id number] MEDICARE A [id number] Self [id number] [id number] Medicare C [id number] SELF [id number] F71 MEDICARE [id number] Riana [id number] A Medicare C [id number] SELF [id number] F71 Medicare C [id number] SELF [id number] F71 MEDICARE [id number] SP [id number] A [employer]OMCO [id number] Riana [id number] UMR F [id number] SELF [id number] UMR F [id number] SELF [id number] Medicare Part B [facility] [id number] 0 [id number] Umr Care Management [id number] ANSI-Commercial [id number] ANSI-Medicare Part B [id number] ANSI-Commercial [id number] ANSI-Commercial [id number] ANSI-Commercial [id number] ANSI-Medicare Part B [id number] ANSI-Medicare Part B [id number] ANSI-Commercial [id number] ANSI-Commercial [id number] ANSI-Medicare Part B [id number] ANSI-Commercial [id number] ANSI-Commercial [id number] ANSI-Commercial [id number] ANSI-Commercial [id number] ANSI-Medicare Part B [id number] ANSI-Commercial [id number] [facility]-Medicare Part B [id number] ANSI-Commercial [id number] [facility] [place] [id number] ANSI-Commercial [id number] ANSI-Commercial [id number] [facility]-Medicare Part B [id number] ANS-Medicare Part B [id number] ANSI-Commercial [id number] ANSI-Commercial [id number] ANSI-Medicare Part B [id number] ANSI-Commercial [id number]-[id number] ANSI-Commercial [id number] ANSI-Commercial [id number] [facility]-Medicare Part B [id number] ANSI-Commercial -[id number]-28ca-[id number] [id number] ANSI-Commercial [id number] heeoufc7-963l-[id number]-[id number] ANSI-Commercial [id number] ANSI-Medicare Part B [id number] MEDICARE [id number] A ANSI-Commercial [id number] ANSI-Medicare Part B [id number] ANSI-Medicare Part B [id number] ANSI-Commercial [id number] ANSI-Medicare Part B [id number] ANSI-Commercial [id number] MEDICARE PI PI POMCO PI PI Umr/Uhc/Pomco Medigap Part B [id number] Self [id number] Medicare Natl Gov't Servi Medicare Primary [id number] Self [id number] [employer] PPO O [id number] S [id number] MEDICARE C [id number] S [id number] A [employer] Maintenance [employer] (HMO) [id number] Self [id number] [employer] (HMO) [id number] Self [id number] [employer] (HMO) [id number] Self [id number] [employer] (pr) Commercial [id number] Self [employer] PPO P [id number] S [id number] MEDICARE [id number] SP [id number] [id number] UMR [facility] [id number] SP [id number] UMR O [id number] S [id number] MEDICARE C [id number] S [id number] [id number] UMR F [id number] SELF [id number] UMR F [id number] SELF [id number] Medicare C [id number] SELF [id number] F71 ANSI-Commercial [id number] ANSI-Commercial [id number] ANSI-Medicare Part B [id number] ANSI-Commercial [id number] ANS-Medicare Part B [id number] ANSI-Commercial [id number] ANSI-Commercial [id number] [facility]-Medicare Part B [id number] ANSI-Commercial [id number] Problems, Conditions, and Diagnoses Code Display Name Description Problem Type Effective Dates Data Source(s) K21.9 Gastro-esophageal reflux disease without esophagitis Gastro-esophageal reflux disease without esophagitis Diagnosis 01/29/2020 06:55:23 PM ED [facility] I10 Essential (primary) hypertension Essential (primary) h ypertension Diagnosis 01/29/2020 06:53:43 PM EDT [facility] R52 Pain, unspecified Pain, unspecified Diagnosis 01/29/2020 06:18:00 PM T [facility] CBD Dilation CBD Dilation Diagnosis 01/29/2020 06:18:00 P M T [facility] D50.8 [id number] Iron deficiency anem ia secondary to inadequate dietary iron intake Problem 01/14/2021 12:00:00 AM EDT [facility]) M20.5x2 Acquired deformity of toe Acquired deformity of toe Pr oblem 12/13/2020 12:00:00 AM EDT [facility] E66.01 [id number] Morbid obesity Problem 08/01/2020 12:00:00 A M EDT eCW1 ([facility]) Surgeries/Procedures Procedure Description Date Indications Data Source(s) Imm: Flublok Quadrivalent 18 years & older 0.5mL IM Influenz a 01/14/2021 12:00:00 AM EDT eCW1 ([facility]) OFFICE OUTPATIENT VISIT 15 MINUTES 01/04/2021 12:00:00 AM EDT [facility] ([facility] ARTHROCENTESIS ASPIR&/INJECTION INTERM JT/BURSA 2020 12:00:00 AM EDT [facility] ([facility] RADEX FOOT COMPLETE MINIMUM 3 VIEWS 12/07/2020 12:00:0 0 AM EDT [facility] ([facility] OFFICE OUTPATIENT NEW 30 MINUTES 12/07/2020 12:00:00 A M EDT [facility] ([facility] PNEUMOCOCCAL POLYSAC VACCINE 23-V 2 />YR SUBQ/IM 07/08 12:00:00 AM EDT eCW1 ([facility]) BLOOD COUNT COMPLETE AUTOMATED <td>CBC</td><td>Routine </td><td>01/31/2020 8:18 AM EDT</td><td></td><td> </td> 01/31/2020 08:18:00 AM [facility] HEPATIC FUNCTION PANEL <td>HEPATIC FUNCTION PANEL A</td><td>Routine</td><td>01/31/2020 8:18 AM EDT</td><td></td><td> </td> 01/31/2020 08:18:00 AM [facility] BASIC METABOLIC PANEL CALCIUM TOTAL <td>BASIC METABOLI C PANEL</td><td>Routine</td><td>01/31/2020 8:18 AM EDT</td><td></td><td> </td> 01/31/2020 08:18:00 AM [facility] GLUCOSE QUANTITATIVE BLOOD XCPT REAGENT STRIP <td>POCT GLUCOSE, DOCKED</td><td>Routine</td><td>01/30/2020 9:20 PM EDT</td><td></td><td> </td> 01/30/2020 09:20:00 PM [facility] CMBN NDSC CATHJ BILIARY&PNCRTC DUCTAL SYS RS&I <td>FLU DALILA ERCP-[place] [id number]</td><td>Routine</td><td>01/30/2020 7:26 PM EDT</td><td> Pain</td><td> </td> 01/30/2020 07:26:55 PM EDT [facility] Pain EKG 12-LEAD - CMAXX REPORT <td>EKG 12-LEAD - CMAXX REPORT</td><td></td><td>01/30/2020 8:01 AM EDT</td><td></td><td></td> 01/30/2020 08:01:07 AM [facility] EKG 12-LEAD - CMAXX REPORT <td>EKG 12-LEAD - CMAXX REPORT</td><td></td><td>01/30/2020 8:01 AM EDT</td><td></td><td></td> 01/30/2020 08:01:07 AM [facility] EKG 12-LEAD <td>EKG 12-LEAD</td><td>Rout ine</td><td>01/30/2020 8:01 AM EDT</td><td></td><td> </td> 01/30/2020 08:01:07 AM [facility] PROTHROMBIN TIME <td>PROTIME INR</td><td>Rout ine</td><td>01/30/2020 5:41 AM EDT</td><td></td><td> </td> 01/30/2020 05:41:00 AM [facility] BLOOD COUNT COMPLETE AUTO&AUTO DIFRNTL WBC COUNT <td>C BC AND DIFFERENTIAL</td><td>Routine</td><td>01/30/2020 5:41 AM EDT</td><td></td><td> </td> 01/30/2020 05:41:00 AM [facility] COMPREHENSIVE METABOLIC PANEL <td>COMPREHENSIVE METABO LIC PANEL</td><td>Routine</td><td>01/30/2020 5:41 AM EDT</td><td></td><td> </td> 01/30/2020 05:41:00 AM [facility] ERCP REPORT <td>ERCP REPORT</td><td></td ><td>01/30/2020 12:00 AM EDT</td><td></td><td></td> 01/30/2020 12:00:00 AM EDT [facility] HEPATITIS C ANTIBODY <td>HEPATITIS C ANTIBODY</td ><td>Routine</td><td>01/29/2020 9:01 PM EDT</td><td></td><td> </td> 01/29/2020 09:01:00 PM [facility] TROPONIN QUANTITATIVE <td>TROPONIN T</td><td>Routi ne</td><td>01/29/2020 9:01 PM EDT</td><td></td><td> </td> 01/29/2020 09:01:00 PM [facility] Immunization: Flublok Quadrivalent (18 years & older) 0.5mL IM (Influenza) 01/15/2020 12:00:00 AM EDT eCW1 ([facility]) Results ID Date Data Source [id number] 01/25/2021 12:00:00 AM EDT [facility] Name Value Range Interpretation Code Description Data Krissy rce(s) Supporting Document(s) SARS-CoV2 Rapid Antigen Negative [facility] This lab was ordered by [facility] and reported by [facility] [employer]. ID Date Data Source [id number] 01/19/2021 06:34:31 AM EDT [facility] PCName: Janet MullinsDOB: 2Provider: Lyndsay James: 01/18/2021 Reason For VisitJanet Mullins is here today for Right Knee. Patient denies any symptoms of or pending results for COVID 19 or contact with anyone with COVID 19. Janet had her second Covid vaccine on 06/06/2020. Janet Mullins is here for evaluation of MRI results. Patient is retired. AssessmentREASON FOR VISIT:Follow up MRI of her right knee. HPI: Janet is a 70-year-old female with a history of right knee issues that date back years. She has had a scope in the past. She has had steroid injections. She has a sense of instability. She has activity-related symptoms primarily medially and posteriorly. She cannot take antiinflammatories because of GI issues. PAST MEDICAL HISTORY:Unchanged from 12/30/20. PAST SURGICAL HISTORY: PHYSICAL EXAMINATION:She is 5' 2 and weighs 216 pounds. She is alert, awake and oriented. Appropriate mood and affect. Her lower extremity has decent pules. Sensory and motor intact. She has no varicosities or edema. Her right knee motion remains 0 to about 115-120. Good motion of her hip. As I move her knee through a range of motion, there are all sorts of pops that are occurring. IMAGING: X-rays of the right knee, which were taken prior to my seeing her, were reviewed by me and did not show obvious serious arthritis. MRI scan that we ordered, which was performed on 01/12/21, shows impressive osteoarthritis in the patellofemoral and medial compartment of her right knee. <OBX.5.1><OBX.5.1.1>IMPRESSION </OBX.5.1.1><OBX.5.1.2> PLAN: </OBX.5.1.2></OBX.5.1>Regarding the right knee, she does have a degenerative meniscus tear, but clearly the main issue with her is osteoarthritis. It is far worse than the x-ray would lead us to believe and I think the next thing when she does get bad enough to merit it is a knee replacement. I think anything other than that will not work. She has had viscosupplementation, steroid injections and she has lost pretty significant weight, so overall she is doing the right thing. She will call the shots. Signatures Electronically signed by : Glory Martinez, ; Jan 18 2021 1:46PM EST Electronically signed by : Nic James M.D.; Jan 19 2021 6:34AM EST Name Value Range Interpretation Code Description Data Krissy rce(s) Supporting Document(s) ID Date Data Source [id number] 01/14/2021 09:19:29 AM EDT [facility] PCName: Janet Silva: 1950rovider: Isaias Barker: 01/13/2021 Chief ComplaintChronic low back pain [facility] Patient has signed a [facility] Controlled Substance and Treatment Agreement. Patient has been given a copy of the treatment agreement and has been given a copy of our Prescription Information Fact Sheet. Do you have a Brace for your condition? Patient currently has a brace for their condition and does utilize it. Do you have a TENS Unit for your condition? Patient does not have a TENS Unit for their condition. Supplements: Patient is currently taking the following supplements: (see current med list). Nerve Conduction: Patient has not had a Nerve Conduction Test. At today's visit patient presents with their Self Implanted Devices The patient does not have any implanted devices. The patient does not have a glucose monitoring device. Patient is retired. The patient is being seen for an initial evaluation. Pain Duration: years Pain Quality: (Nociceptive) aching and sharp Timing: constant Palliation: heat Exacerbating: standing and walking Pain Score: a current pain level of 5/10, a minimum pain level of 3/10 and a maximum pain level of 8/10. Condition type: The patient is being seen for a chronic condition. PAIN LOCATION: the pain is located in the low back and ra diates to the right buttock and left buttock. RELATIONSHIP TO INJURY: This condition is not related to a specific injury. PAST EVALUATION: The patient has been previously evaluated by the following specialty: Orthopedic evaluation by Nehemias Mariee MD. Provider records were obtained, reviewed and on file. REVIEW OF PAST DIAGNOSTICS: have included: MRI (MRI of the lumbar spine from 01/12/21 reveals moderate to severe multilevel lumbar spondylosis with multilevel disc bulge osteophyte complexes from T8 1112 through L5-S1, which contributes to multilevel central canal lateral recess and bilateral foraminal narrowing. Dominant moderate canal stenosis at L2-3, L3-4 and L4-5 and L5-S1. Multilevel bilateral foraminal stenosis, overall mild to moderate) . Records were obtained, reviewed and on file. ASSOCIATED SYMPTOMS: include difficulty sleeping , difficulty walking and radiating, but no fecal incontinence and no urinary incontinence. FUNCTIONAL LIMITATIONS: The patient's functional status is limited as follows: ability to perform activities of daily living. Allergies Bactrim Hives;; Recorded By: Mony Dawn; 01/13/2021 12:45:05 PM Ceftin Hives;; Recorded By: Mony Dawn; 01/13/2021 12:45:05 PM Penicillins Hives;; Recorded By: Mony Dawn; 01/13/2021 12:45:05 PM Sulfa Drugs Swelling;; Recorded By: Mony Dawn; 01/13/2021 12:45:05 PM Advair HFA AERO Muscle Cramp; Recorded By: Mony Dawn; 1 12:45:05 PM Dulera AERO Muscle Cramp; Recorded By: Mony Dawn; 01/13/2021 12:45:05 PM Pulmicort Flexhaler INHA Muscle Cramp; Recorded By: Mony Dawn; 01/13/2021 12:45:05 PM Requip Muscle Cramp; Recorded By: Mony Dawn; 01/13/2021 12:45:05 PM Statins Can't remember; Recorded By: Mony Dawn; 01/13/2021 12:45:05 PM Symbicort AERO Muscle Cramp; Recorded By: Mony Dawn; 01/13/2021 12:45:05 PM Zithromax Z-Maxi TABS Diarrhea; Recorded By: Mony Dawn; 01/13/2021 12:45:05 PM Current Meds Nicki CAPS;Therapy: (Recorded:13Jan2021) to Recorded Dispense: 0 Days ; #: Sufficient; Refill: 0;For: SocHx: Alcohol use; LUIS A = N; Record; Last Updated By: Mony Dawn; 01/13/2021 12:45:05 PM Arnuity Ellipta 100 MCG/ACT Inhalation Aerosol Powder Breath Activated;Therapy: (Recorded:13Jan2021) to Recorded Dispense: 0 Days ; #: Sufficient; Refill: 0;For: SocHx: Alcohol use; LUIS A = N; Record; Last Updated By: Mony Dawn; 01/13/2021 12:45:06 PM Benicar TABS;Therapy: (Recorded:13Jan2021) to Recorded Dispense: 0 Days ; #: Sufficient; Refill: 0;For: SocHx: Alcohol use; LUIS A = N; Record; Last Updated By: Mony Dawn; 01/13/2021 12:45:05 PM BuSpar TABS;Therapy: (Recorded:13Jan2021) to Recorded Dispense: 0 Days ; #: Sufficient; Refill: 0;For: SocHx: Alcohol use; LUIS A = N; Record; Last Updated By: Mony Dawn; 01/13/2021 12:45:05 PM Fish Oil CAPS;Therapy: (Recorded:13Jan2021) to Recorded Dispense: 0 Days ; #: Sufficient; Refill: 0;For: SocHx: Alcohol use; LUIS A = N; Record; Last Updated By: Mony Dawn; 01/13/2021 12:45:05 PM Flonase SUSP;Therapy: (Recorded:13Jan2021) to Recorded Dispense: 0 Days ; #: Sufficient; Refill: 0;For: SocHx: Alcohol use; LUIS A = N; Record; Last Updated By: Mony Dawn; 01/13/2021 12:45:05 PM Gabapentin TABS;Therapy: (Recorded:13Jan2021) to Recorded Dispense: 0 Days ; #: Sufficient; Refill: 0;For: SocHx: Alcohol use; LUIS A = N; Record; Last Updated By: Mony Dawn; 01/13/2021 12:45:05 PM Glucosamine Chondroitin TABS;Therapy: (Recorded:13Jan2021) to Recorded Dispense: 0 Days ; #: Sufficient; Refill: 0;For: SocHx: Alcohol use; LUIS A = N; Record; Last Updated By: Mony Dawn; 01/13/2021 12:45:06 PM Melatonin TABS;Therapy: (Recorded:13Jan2021) to Recorded Dispense: 0 Days ; #: Sufficient; Refill: 0;For: SocHx: Alcohol use; LUIS A = N; Record; Last Updated By: Mony Dawn; 01/13/2021 12:45:05 PM Multi-Vitamin TABS;Therapy: (Recorded:13Jan2021) to Recorded Dispense: 0 Days ; #: Sufficient; Refill: 0;For: SocHx: Alcohol use; LUIS A = N; Record; Last Updated By: Mony Dawn; 01/13/2021 12:45:06 PM Primidone TABS;Therapy: (Recorded:13Jan2021) to Recorded Dispense: 0 Days ; #: Sufficient; Refill: 0;For: SocHx: Alcohol use; LUIS A = N; Record; Last Updated By: Mony Dawn; 01/13/2021 12:45:06 PM ProAir HFA AERS;Therapy: (Recorded:13Jan2021) to Recorded Dispense: 0 Days ; #: Sufficient; Refill: 0;For: SocHx: Alcohol use; LUIS A = N; Record; Last Updated By: Mony Dawn; 01/13/2021 12:45:05 PM Probiotic CAPS;Therapy: (Recorded:13Jan2021) to Recorded Dispense: 0 Days ; #: Sufficient; Refill: 0;For: SocHx: Alcohol use; LUIS A = N; Record; Last Updated By: Mony Dawn; 01/13/2021 12:45:05 PM Singulair TABS;Therapy: (Recorded:13Jan2021) to Recorded Dispense: 0 Days ; #: Sufficient; Refill: 0;For: SocHx: Alcohol use; LUIS A = N; Record; Last Updated By: Mony Dawn; 01/13/2021 12:45:05 PM Tylenol TABS;Therapy: (Recorded:13Jan2021) to Recorded Dispense: 0 Days ; #: Sufficient; Refill: 0;For: SocHx: Alcohol use; LUIS A = N; Record; Last Updated By: Mony Dawn; 01/13/2021 12:45:06 PM Vitamin D CAPS;Therapy: (Recorded:13Jan2021) to Recorded Dispense: 0 Days ; #: Sufficient; Refill: 0;For: SocHx: Alcohol use; LUIS A = N; Record; Last Updated By: Mony Dawn; 01/13/2021 12:45:05 PM Zetia TABS;Therapy: (Recorded:13Jan2021) to Recorded Dispense: 0 Days ; #: Sufficient; Refill: 0;For: SocHx: Alcohol use; LUIS A = N; Record; Last Updated By: Mony Dawn; 01/13/2021 12:45:05 PM Past Medical History Denied: History of Clotting disorder Denied: History of anticoagulant therapy History of arthritis (V13.4) (Z87.39) History of asthma (V12.69) (Z87.09) History of cardiac murmur (V12.59) (Z86.79) History of gastroesophageal reflux (GERD) (V12.79) (Z87.19) History of hypertension (V12.59) (Z86.79) History of kidney disease (V13.09) (Z87.448) History of renal calculi (V13.01) (Z87.442) History of thyroid disorder (V12.29) (Z86.39) History of ulceration (V13.89) (Z87.898) Surgical History Denied: History of Cardioverter defibrillator insertion History of Endoscopy History of Foot surgery Bone spurs History of Gallbladder surgery History of Hysterectomy History of Knee surgery Cartilage repair Denied: History of Permanent pacemaker insertion History of Rotator cuff repair Left History of Tubal ligation VitalsVital Signs Recorded: 13Jan2021 12:38PM Pacemaker: NoICD: NoHeight: 5 ft 1 inWeight: 217 lb BMI Calculated: 41 kg/m2BSA Calculated: 1.96Systolic: 146, SittingDiastolic: 92, SittingHeart Rate: 79Respiration: 16Height measured w/wo shoes: w/shoesPain Scale: 5Depression: 0ORT: LR Physical ExamGeneral: The patient is a well nourished/well developed, female, heavy set, who is in mild distress and appears stated age. Gait and Station: Gait was antalgic. Lumbosacral Spine: - Inspection: normal appearance. No deformity, ecchymosis, erythema or swelling noted. Normal Lordosis.. - Palpation/Tenderness: Tenderness on palpation of the LEFT: sciatic notch and sacroiliac joint, but negative left paraspinal. - Palpation/Tenderness: Tenderness on palpation of the RIGHT: sacroiliac joint, but negative right paraspinal and negative right sciatic notch. - ROM Flexion: was restricted, was painful. - ROM Extension: was restricted, was painful.Right Lower Extremity Motor:- Hip: 5/5 flexion- Knee: 5/5 flexion, 5/5 extension- Foot: 5/5 Plantar , 5/5 DorsiFlexionSpecial Tests: flip test was positive, positive facet challenge , positive compression, positive rhona and positive gaenslen'sLeft Lower Extremity Motor:- Hip: 5/5 flexion- Knee: 5/5 flexion, 5/5 extension- Foot: 5/5 Plantar , 5/5 DorsiFlexionSpecial Tests: flip test was positive, positive facet challenge , positive compression, positive rhona and positive gaenslen'sNeurological:Sensation Left Lower: normalSensation Right Lower: normal. Assessment 1. Sacroiliitis (720.2) (M46.1) 2. Chronic low back pain (724.2,338.29) (M54.50,G89.29) Plan 1. MIPS - Survey Evaluation Evaluation Status: Complete Done: [id number] Depression Screening - Patient's PHQ-9 score is: : 0 - 4 none ...No fup plan neededHave you EVER received a Pneumococcal Vaccine...? : Yes - Patient has previously received a Pneumococcal vaccinationFLU - Have you received a flu shot in 2020 ? : No - Influenza not previously received due to patient declined or other patient reasonsBMI for Patients 18 and over : 25 or greater, BMI above normal parameters, follow-up plan documentedDo you use any kind of Tobacco? (smokes or uses smokeless tobacco): : Patient identified as a NON-Tobacco User<OBX.5.1><OBX.5.1.1>WOMEN </OBX.5.1.1><OBX.5.1.2> ANYONE >/= 65 - How many times in the past year have you had 4 or more</OBX.5.1.2></OBX.5.1> drinks in a day? : ZeroMEN < 65 - How many times in the past year have you had 5 or more drinks in a day? : N/A 2. Treatment Room SI w/Fluoro at [facility] ([facility]) Referral Procedure Treatment Status: Hold For - Scheduling Requested for: [id number] Type : MedicareIs patient currently on a biologic? : NoDo you have a transdermal glucose monitor? : NoIs your patient on an Anticoagulant -OR- have Coagulopathy...? : NoIs patient taking Aspirin 325 mg or greater...? : NoDoes Patient require a oil transport driver...? : Patient requires a oil transport driver for this procedureLaterality : BilateralFront Desk Reminder: : Schedule the Status Post BlockEducate pt. on Covid Vaccine : Educate pt. that procedure w/steroid cannot be done within 14 days of Covid vaccine and to avoid vaccine 7 days after procedure.SI Joint Injection with Fluoro: : SIF = SI Joint with FluoroSchedule : Do not schedule within 7 days of any blockDoes Patient Require a Personal Care Wildlife Protector (POA/HCP)? : NoPatient must weigh 400 lbs or less. Enter weight : 217Is this an urgent SOS referral....? : Yes, this is an urgent SOS referralDoes patient require a Christopher lift? : NoDoes Patient require Covid-19 testing 5 days before procedure...? : No CVT needed, Provider viewed vaccine documentation, instruct pt to bring proof to ASCCovid Risk : Low Risk Medication:. The patient does not receive any medication prescriptions from this office. Treatment includes: PROCEDURE(S): ASIPP Risk Stratification of Patients presenting for Interventional Pain Procedures: Decreasing Morbidity of COVID-19 According to the Covid-19 ASIPP guidelines and the medical history as relayed to me by the patient, the Covid-19 risk stratification is medium.- Procedure is within Insurance Guidelines: order based on pertinent information, MRI and patient symptoms indicating a different pain generator site and/or past treatment effectiveness as documented in the HPI.- Nerve Block Plan: This is an URGENT REQUEST , I am ordering a, BILATERAL, SI JOINT INJECTION (Diagnostic). Please see physical exam for the results of THREE of the following tests: SAUL'S, THIGH THRUST, SI COMPRESSION, GAENSLAN'S TEST. , targeting the Please see SOS Spine Plan for diagnostic level and under fluoroscopy without sedation. NERVE BLOCK: The material risks, benefits, alternatives have been discussed with the patient, including no treatment. They include, but are not limited to, bleeding, bruising, infection, damage to targeted and non-targeted tissue, increased pain, nerve injury or other reaction, if severe, could lead to CVA, arrhythmias or . The patient was given procedure instructions and educational material for this specific procedure at the time of the visit.- Bleeding Disorder: Patient denies having a bleeding disorder. - Anticoagulation therapy:. Patient denies current treatment with anti-coagulation therapy. FOLLOW UP: The patient should have a follow up visit Injection/Procedure. CONTINUE TREATMENT: Janet will continue with the following:. Patient will follow up with Surgeon. Patient will follow up with their PCP. PHQ-9 Patient's PHQ-9 score was 0-4 suggesting a Minimal level of Depression. No further plan is required at this time. The PHQ-9 was administered today as part of routine health risk screening for depression and psychosocial functioning. Screening for depression in chronic pain patients is standard of care due to the high rate of co-morbidity between these illnesses. In conjunction with other health risk assessment screening data, such as the Opioid Risk Tool and Visual Analogue Scale, this information is imperative for determining the patients risk factors and potential comorbidities prior to determining a safe and effective treatment plan. - INDUSTRIAL MAINTENANCE TECH: The patient was counseled on the following: treatment plan and future treatment options. Discussion/SummaryPatient with chronic low back pain here for initial consultation, referred by Dr. Mariee. She has had pain for several years but recently been exacerbated. The pain with worse with walking, standing, and sitting. She has a hard time sleeping due to the pain. She has a script for physical therapy but was given this yesterday and has not had a chance to schedule this yet. She cannot tolerate NSAIDs due to having an esophageal disorder. She is not sure what the exact diagnosis is. Dr. Mariee has referred her for urgent bilateral SI joint injections. Patient has significant tenderness over her SI joints bilaterally. We discussed this procedure today. Patient does wish to proceed as soon as possible. Procedure risks and benefits were reviewed with the patient today, and patient voiced understanding. Patient will follow up after the injections. Signatures Electronically signed by : STEVE Washington; Jan 13 2021 1:13PM EST (Author) Electronically signed by : Tanmay Cruz MD; Jan 14 2021 9:19AM EST Name Value Range Interpretation Code Description Data Krissy rce(s) Supporting Document(s) ID Date Data Source [id number] 01/14/2021 04:06:17 PM EDT [facility], PCName: Janet MullinsDOB: 2Provider: Mónica Mariee: 01/12/2021 Reason For VisitJanet Mullins is here today for lumbar spine. Janet had her second Covid vaccine on 06/06/20. Janet Mullins is a new patient and Janet Mullins is here for evaluation of MRI results. mri lsp 01/12/21 + xr 12/21/20 with sos. Other DOI/DOO: chronic w/o injury. The patient has not had a course of physical therapy for greater than 4 weeks. The patient has not had a course of NSAIDs for greater than 4 weeks. The patient was notified that the office visit was recorded to enhance documentation accuracy. Patient is retired. History of Present IllnessCHIEF COMPLAINTFollow-up of lumbar spine.HISTORY OF PRESENT ILLNESSThe patient is a 70-year-old female who returns for a follow-up evaluation of the lumbar spine. She had seen STEVE Emerson, on 12/21/2020 for chronic low back pain, worse this summer. She also has pain in buttock, hamstrings, and calves. She has difficulty standing or walking for an extensive period of time. She did not want to do physical therapy. The patient confirms that she underwent an MRI of her lumbar spine. She states that she has abnormalities in her left hip and right knee. She reports she has bilateral Achilles tendinitis. She notes that she has not been compliant with doing her home exercises as she has been very busy, however, she states that the pain is not very severe when she does home exercises. She reports that the pain in the right side is worse than her left at this time. The patient also complains of pain in her bilateral hips since approximately one year. She states she has radiation of pain occasionally to the anterior side and notes that the pain also radiates down her lower extremities and occasionally wraps around the inside of the lower extremities. The patient denies any clicking or popping of her back. She notes she has not had any treatment of her symptoms. She states that she has not had any physical therapy or wound care nurse. She states she is going to [place] in 04/2021.She reports that she has had plantar fasciitis in the past and she is following up with Dr. Blancas for her plantar fasciitis. The patient reports that her family history is significant for SI joint problem in her daughter who underwent surgery performed by me.The patient states she has retired since 6 years and she was a theater teacher for 27 years. Res ults/DataX-rays of the lumbar spine dated 12/22/2019 are reviewed and show lumbar degenerative scoliosis and multilevel degenerative disc disease. Results/Data OtherMRI of the lumbar spine obtained today, 01/12/2021, was reviewed and shows lumbar degenerative scoliosis, ociq-jp-rhsutouc left lateral recess stenosis at L3-4, mild right lateral recess stenosis at L4-5, and multilevel foraminal stenosis. AssessmentASSESSMENT1. Sacroiliac joint dysfunction., bilaterally.2. Lumbar degenerative scoliosis.3. Lumbar stenosis without claudication. Plan S SI Belt (SOS) [id number]; Status:Complete; Done: 12Jan2021 Perform:SOS22; Due:26Jan2021; Last Updated By:Analilia Fairbanks; 01/12/2021 2:05:40 PM;Ordered; For:Low back pain; Ordered By:Nehemias Mariee; Physical Therapy (SOS) - Home Exercise Program Treatment Evaluation Status: HoldFor - PT Scheduling (SOS) Requested for: 12Jan2021 Ordered;For: Low back pain, Sacroiliac joint pain; Ordered By: Nehemias Mariee Performed: Due: 26Jan2021; Last Updated By: Angela Augustine; 01/12/2021 1:53:15 PMPT Location Preference : PT Outside of SOSPT Protocol : Evaluate and treat as indicated, per protocol or as previously written.PT HEP Edu (1 - 3 visits) : 3-6 visits for home exercise educationLaterality and Body Part: : Lumbar Spine, SI Joint Pain Adonay patient presents for follow up of the lumbar spine with symptoms of bilateral SI joint pain, left worse than right. We reviewed the imaging studies which shows lumbar degenerative scoliosis, klwv-ma-ccklporm left lateral recess stenosis at L3-4, mild right lateral recess stenosis at L4-5, multilevel foraminal stenosis, and multilevel degenerative disc disease. We discussed the diagnosis as well as treatment options. I explained to her that she has bilateral SI joint dysfunction. I also explained to her that women get affected more than men with the SI joint issues. I explained to her in detail that she has inflammation of joints at multiple locations. I informed her that I will prescribe 3 to 6 visits of physical therapy and after that she can continue to do on her own at home. I also recommended an injection to the SI joint which serves as both diagnostic and therapeutic and her response to the injection confirms whether it is her problem or not. I also informed her that I can give her a prescription for SI belt and the effectiveness of the belt varies. I explained to her that she is also a surgical candidate. We will provide her a prescription for physical therapy and an SI belt. We will proceed with bilateral SI joint injections and physical therapy. I informed her that she can go to [place] as planned in 04/2021. The patient will follow up with me through a virtual visit in mid 12/2020. The patient understands and agrees with the plan. Scribed by Usman Rai on 01/12/2021 at 10:52 PM for Nehemias Mariee Signatures Electronically signed by : Dusty Rai MA; Jan 12 2021 10:52PM EST (Author) Electronically signed by : Nehemias Mariee M.D.; Jan 14 2021 4:06PM EST Name Value Range Interpretation Code Description Data Krissy rce(s) Supporting Document(s) ID Date Data Source [id number] 01/17/2021 10:32:10 AM EDT [facility] FINAL REPORTPatient Name: Janet Mullins TPatient ID: [id number] Date: 01/12/2021xam Description: MRI KNEE W/O CONTRASTReferring Physician: Nic James EXAM: MRI right knee Without ContrastINDICATION: Right knee painCOMPARISON: Right knee radiographs 11/19/2020TECHNIQUE: Multiplanar multisequence MR imaging of the right knee was performed on a 1.5 Delia GE MR unit. Intravenous contrast was not administered.FINDINGS: Ligaments: The anterior cruciate ligament is intact, although there is hyperintense T2 signal longitudinal intrasubstance mucinous cystic degeneration, with cyst extending 17 x 6 x 6 mm in size. Posterior cruciate ligament is intact. Medial and lateral collateral ligaments are intact. Extensor Mechanism: The quadriceps tendon complex and patellar tendon are also intact. Moderate prepatellar subcutaneous soft tissue edema.Medial Compartment: There is mild blunting of the free edge of the medial meniscal body, with small free edge radial tearing and irregularity and fraying along the tibial undersurface of the posterior meniscal horn. No displaced meniscal tear. There is adjacent full-thickness 18 mm (AP) cartilage defect at the posterior weight-bearing medial femoral condyle, with tiny foci of underlying subchondral marrow edema and tiny subcortical cysts. Mild medial compartment marginal osteophytes are also seen.Lateral Compartment: The retention of the posterior horn lateral meniscus is diminutive, although no definitive lateral meniscal tear or extrusion. Full-thickness cartilage fissuring at the central weight-bearing lateral femoral condyle and tibial plateau is seen with superimposed focal moderate cartilage thinning.Patellofemoral Compartment: Full-thickness lateral patellar facet- apical articular cartilage loss with corresponding full-thickness lateral trochlear cartilage denuding, tiny foci of subchondral marrow edema and moderate patellofemoral degenerative spurring. Cartilage loss extends into the paracentral medial patellar facet.Fluid/Joint Effusion: No knee joint effusion. Small popliteal cyst. Marrow: No fracture or stress fracture. Muscles: No muscle signal abnormality.Miscellaneous: Mild to moderate soft tissue edema within the anterior knee. IMPRESSION: 1. Tricompartmental knee osteoarthrosis and chondrosis, with dominant full-thickness and large segment cartilage loss/denuding involving the patellofemoral compartment, predominantly laterally. Additional full-thickness medial tibiofemoral cartilage loss and full-thickness lateral compartment cartilage fissuring.2. Small free edge radial tearing of the medial meniscal body and surface fraying along the undersurface of the posterior medial meniscal horn. No displaced meniscal tear. 3. Chronic ACL cystic degeneration. No focal ACL tear or retraction.4. Fpht-kl-skqwezjt anterior knee soft tissue edema.Electronically signed by: Tuan Cruz Dictated: 01/17/2021 10:32 . Name Value Range Interpretation Code Description Data Krissy rce(s) Supporting Document(s) ID Date Data Source [id number] 01/12/2021 01:04:06 PM EDT [facility] FINAL REPORTPatient Name: Harpreet Vargas Date: 01/12/2021xam Description: MRI L-SPINE W/O CONTRASTReferring Physician: Nic James EXAM: MRI Lumbar Spine without ContrastINDICATION: Low back pain COMPARISON: Lumbar spine radiographs 12/21/2020TECHNIQUE: Multiplanar multisequence axial and sagittal MR imaging of the lumbosacral spine was performed on a 1.5T GE unit. Intravenous contrast was not administered.FINDINGS: For the purpose of nomenclature, the most inferior intervertebral disc fully inclued within the axial series will be designated L5 - S1. Mild S-shaped lumbar scoliosis with dominant dextroconvex curvature. Mild straightening of the lumbar lordosis is also seen very mild grade 1 retrolisthesis L1 on L2, L3 on L4 and L4 on L5. No vertebral fracture or compression deformity. No aggressive marrow lesion. Diffuse chronic disc degeneration and desiccation involves all lumbar levels, with multilevel mild to moderate intervertebral disc height loss and ventral and dorsal endplate spurring. Mild type 2 Modic endplate marrow changes L1-2 and L3-4 and additional mild type 1 and type 2 Modic changes at L4-5. The conus is normal and terminates at the L1 level. Cauda equina is normal.Individual disc levels:T11-12: Included on the sagittal images only. Moderate disc height loss with moderate dorsal disc bulge mildly abuts the ventral cord surface and likely contributes to mild central canal stenosis. Moderate right foraminal narrowing. T12-L1: Diffuse disc bulge- osteophyte complex flattens the ventral thecal sac with mild central canal stenosis and mild right lateral recess narrowing. Mild bilateral facet arthropathy. No foraminal narrowing. L1-2: Moderate disc height loss with moderate diffuse disc bulge-osteophyte complex, ligamentum flavum thickening and mild facet arthropathy. Mild central canal stenosis and mild right and left lateral recess narrowing. Mild right foraminal narrowing. L2-3: Moderate disc height loss with moderate diffuse disc bulge-osteophyte complex. Ligamentum flavum thickening and mild to moderate bilateral facet arthropathy contribute to moderate central canal stenosis and moderate left and mild right lateral recess narrowing. Mild bilateral foraminal narrowing. L3-4: Moderate disc height loss with diffuse disc bulge-osteophyte complex, ligamentum flavum thickening and moderate facet arthropathy. Moderate central canal stenosis with moderate right and moderate to severe left lateral recess narrowing. Mild left greater than right foraminal stenosis. L4-5: Moderate disc height loss with diffuse disc b ulge-osteophyte complex, ligamentum flavum thickening and moderate facet arthropathy. Moderate central canal stenosis with moderate to severe left greater than right lateral recess narrowing. Gyib-ay-skenjvdy left and mild right foraminal stenosis. L5-S1: Mild to moderate dorsal disc bulge-osteophyte complex, ligamentum flavum thickening and moderate facet arthropathy. Moderate central canal stenosis with moderate right and left lateral recess narrowing. Moderate right and left foraminal stenosis. Chronic partial fatty infiltration of the paraspinal musculature bilaterally.IMPRESSION: 1. Moderate to severe multilevel lumbar spondylosis with multilevel disc bulge-osteophyte complexes from T11-12 through L5-S1, which contribute to multilevel central canal, lateral recess and bilateral foraminal narrowing. Dominant moderate canal stenosis at L2-3, L3-4 and L4-5 and L5-S1.2. Multilevel bilateral foraminal stenosis, overall [id number]. Please see full discussion above.Electronically si gned by: Tuan Cruz Dictated: 01/12/2021 13:04 . Name Value Range Interpretation Code Description Data Krissy rce(s) Supporting Document(s) ID Date Data Source [id number] 01/04/2021 06:59:47 AM EDT [facility] PCName: Janet Silva: 1950rovider: Dyan Tyree: 12/30/2020 Reason For VisitVerbal consent obtained from the patient for telemedicine visit. This assessment was done using telemedicine as a result of social distancing due to the outbreak of COVID-19. 10 minutes for review of chart, virtual visit itself, and documentation. Includes talking with patient reviewing chart. History of Present IllnessChief complaint: Follow-up right knee painHistory was obtained with the patient, chronic condition with [id number] retired patient is doing a virtual visit for follow-up regarding her right knee following a Depo-Medrol injection December 06, 2020. Patient says that she still continues to get intermittent pain at 6 out of 10. It is worse with walking and weightbearing. Nothing makes it feel better. She does not take any counter medications and she cannot take NSAIDs because she has a hiatal hernia and a problem with her esophagus which she does not know the name for. Positive giving way to the knee. No swelling. Physical ExamSOS PE Dragon Form: General: Alert and oriented x 3, no distress, normal mood and affect. Skin: warm and dry.Right knee: Difficult to assess the right knee patient is having trouble pointing the camera to her knee but from what I did see it looked a little bit swollen, no redness. AssessmentRight knee pain, primary osteoarthritis right knee PlanI think the patient has been having some increasing right knee pain recently but has been having knee pain for a while. She cannot take NSAIDs and the Depo-Medrol injection that she had did not work. Recommending an MRI of the right knee to assess her menisci. I think she might have a degenerative meniscus tear. The patient is trying to get scheduled with Dr. Mariee for an MRI of her back and she is already filled out the MRI questionnaire so hopefully once we get the MRI approved from her insurance company for her right knee we can have both MRIs done on the same day. Patient agrees with the plan Work / School NoteThe percentage of temporary impairment is 0%. 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 DisclaimersThis document was dictated and electronically signed using PPT Reasearch Speaking software. A reasonable attempt at proof reading has been made to minimize errors. Please call with any questions. Signatures Electronically signed by : Juan R Solomon; Dec 30 2020 11:19AM EST (Author) Electronically signed by : Nic James M.D.; Jan 04 2021 6:59AM EST Name Value Range Interpretation Code Description Data Krissy rce(s) Supporting Document(s) ID Date Data Source [id number] 12/22/2020 07:39:35 AM EDT [facility] PCName: Janet MullinsB: 2Provider: Josefina Clarke: 12/21/2020 Reason For VisitJanet Mullins is here today for Lumbar spine. Janet had her second Covid vaccine on 06/06/2020. Janet Mullins is an established patient here for a new problem. Chronic pain. Patient is retired. History of Present IllnessThis is a 70-year-old female complaining of pain for about the last 3 to 4 months. She has had chronic lower back pain but has gotten much worse since this summer. She gets referred pain into the buttocks, hamstrings and calves. She has had no treatment. Her PCP recommend she does not take NSAIDs due to a hiatal hernia issue. No bladder or bowel dysfunction. She has difficulty walking or standing for any extensive time. Results/DataXRays were ordered, obtained and interpreted today in the office. Indication: pain/dysfunction. Site: Lumbar Spine Views: 4 Views, AP/Lateral/Flexion/Extension Moderate to severe diffuse degenerative disc space narrowing and facet arthropathy. Subtle right apex lumbar scoliosis. Plan Start: methylPREDNISolone 4 MG Oral Tablet Therapy Pack (Medrol); Take as directed Rx By: John Clarke; Dispense: 0 Days ; #:1 X 21 Tablet Pack; Refill: 0;For: Lower back pain; LUIS A = N; Verified Transmission to [facility]; Last Updated By: [employer]Beijing [employer]; 12/21/2020 2:41:35 PM X-Ray I Lumbosacral Comp - 4 views (XRays were ordered, obtained and interpretedtoday in the office. Indication: pain/dysfunction.); Status:Complete; Done: [id number] Perform:SOS22; Due:[id number]; Last Updated By:Enma Powell; 12/21/2020 2:04:09 PM;Ordered; For:Lower back pain; Ordered By:John Clarke; MRI (SOS) Referral Diagnostic Diagnostic Status: Need Information - FinancialAuthorization Requested for: [id number] Ordered;For: Lower back pain; Ordered By: Nehemias aMriee Performed: Order Comments: Wide Bore Due: [id number]; Last Updated By: Angela Augustine; 12/21/2020 2:45:46 PMPatient will follow up with: : Dr. Mariee--[place] or GENNARO Emerson Ordered Contrast : 01: without gadoLaterality: : _Not Applicable Plan, Assessment and Recommendation(s) Assessment: Low back pain, degenerative disc disease lumbar spine, lumbar stenosis without claudication. Plan: She was recommended by her PCP to avoid NSAIDs. I did provide a Medrol Dosepak to use as directed for radicular pain. I am requesting authorization for lumbar MRI scan to further evaluate her symptoms. She deferred physical therapy. She is requesting consultation with Dr. Mariee whom her daughter had surgery with. Work / School NoteThe patient is not working at this time. This document was dictated and electronically signed using [employer] software. A reasonable attempt at proof reading has been made to minimize errors. Please call with any questions. Signatures Electronically signed by : Juan R Emerson; Dec 21 2020 4:46PM EST (Author) Electronically signed by : Nehemias Mariee M.D.; Dec 22 2020 7:39AM EST Name Value Range Interpretation Code Description Data Krissy rce(s) Supporting Document(s) ID Date Data Source [id number] 12/07/2020 08:09:00 AM EDT [facility] PCName: Janet MullinsDOB: 2Provider: Lyndsay James: 12/06/2020 Reason For VisitJanet Mullins is here today for right knee. Janet had her second Covid vaccine on 06/06/20. Janet Mullins is here for SOS Plus follow up. Other DOI/DOO: 11/19/20. Patient is retired. AssessmentREASON FOR VISIT:Right knee painThis 70-year-old female has a history of right knee issues that date back a number of years. She had an arthroscopy in the past, which was relatively successful at relieving her discomfort. Two weeks ago, she had a flare-up of significant knee pain, primarily posteriorly, and a sense of instability. The immobilizer was pointless because it kept slipping off. The symptoms have eased but the knee is still painful, primarily medially.and posteriorly. Today she comes limping in for an evaluation. She is not using an assistive device.PAST MEDICAL HISTORY:Please see intake. She is retired and is not working. She has allergies, reflux, hiatal hernia, hyperlipidemia, hypertension and restless leg syndrome. Surgeries are as listed: Right knee arthroscopy x 2 in the past, which she says helped her. She is unable to take anti-inflammatories because of GI issues she developed when she took too much of them in the past. She has multiple allergies, as listed.PHYSICAL EXAMINATION:She is 5'2 and weighs 230 pounds, with a BMI of about 42. She is alert, awake and oriented, with appropriate mood and affect. Lower extremities have decent pulses. Sensory and motor are intact.Examination of the right knee: Motion is from just shy of extension to 120. She is tender medially. No laxity. Painful Adis's but no pop. Good motion of the hip. X-RAYS:X-rays taken two weeks ago were reviewed. She has pretty decent joint space in all three compartments. There are moderate degenerative findings.IMPRESSION:She likely has a degenerative meniscus tear of the right knee, with underlying osteoarthritis. I'm going to try a steroid injection in her right knee and see how it works. We will virtually communicate with her in three weeks. We will get an MRI if symptoms persist.PROCEDURE: Right knee injectionDescription: I prepped the knee and, under sterile conditions, 80 mg of Depo-Medrol and 5 cc of Lidocaine were injected. . Signatures Electronically signed by : Rae Nayak, ; Dec 07 2020 7:26AM EST Electronically signed by : Nic James M.D.; Dec 07 2020 8:08AM EST Name Value Range Interpretation Code Description Data [facility](s) ID Date Data Source [id number] 11/23/2020 05:29:58 PM EDT [facility] PCName: Janet MullinsDOB: 2Provider: David Ortiz: 11/19/2020 Reason For VisitJanet Mullins is here today for right knee. Patient denies any symptoms of or pending results for COVID 19 or contact with anyone with COVID 19. Janet had her first Covid vaccine on 05/16/20. Janet had her second Covid vaccine on 06/06/20. Janet Mullins is here for an unscheduled and/or urgent visit. Other DOI/DOO: 11/19/20. Patient states she stepped on her mower and she heard a loud snap. Patient is retired. History of Present IllnessThis patient has a history of osteoarthritis of her right knee. While mowing on an incline she went to get back on the mower and she felt a snap on the lateral right knee. Since then she has been having trouble ambulating and localized pain. Results/DataAP, lateral, sunrise x-rays performed at [facility] on 11/19/2020 show degenerative findings but no acute fracture AssessmentAcute right knee pain Plan 1. SOS Plus DME Non-Billable Item; Status:Hold For - DME Scheduling (SOS); Requested for:[id number]; 2. X-Ray I Knee - 3 views (XRays were ordered, obtained and interpreted today in the office. Indication: pain/dysfunction.); Status:Complete; Done: [id number] Bearing Status : Weight bearingLaterality: : Right We will place her in immobilizer for support. She has crutches that she can use to assist her weightbearing. She will use pevl-sns-djlklmv Tylenol. There are no anti-inflammatory usage because of GI problems. She will follow-up with Dr. Schofield in the next 5 days for continued options. She saw him a year ago to have a Monovisc injection DisclaimersThis document was dictated and electronically signed using PPT Reasearch Speaking software. A reasonable attempt at proof reading has been made to minimize errors. Please call with any questions. Chief ComplaintJanet Mullins presents for pain/dysfunction in the RIGHT knee. Signatures Electronically signed by : Faye Otriz PA-C; Nov 19 2020 6:53PM EST (Author) Electronically signed by : Audi James M.D.; Nov 23 2020 5:29PM EST Name Value Range Interpretation Code Description Data Krissy rce(s) Supporting Document(s) ID Date Data Source [id number] 09/02/2020 10:27:15 AM EDT [facility] PCName: Janet Silva: 2Provider: Deepa Le: 09/01/2020 AssessmentBilateral Achilles tendinitis, severe, improving PlanVerbal consent obtained from the patient for telemedicine visit.This assessment was done using telemedicine as a result of social distancing due to the outbreak of COVID-19.15 minutes for review of chart, virtual visit itself, and documentation.Patient is a 70-year-old female who has been seen for bilateral Achilles tendinitis. The patient is doing well. The last clinic visit she was given a prescription for physical therapy as she wanted to avoid surgical options at all cost. I felt this was reasonable and we started some PT. The patient states that she has improved significantly especially with utilizing the eccentric stretching exercises. She states that she still does have some pain but she is able to walk at the grocery store throughout the day without having to be immobilized at night. She is very happy with how things are progressing.She states that the pain is mild, aching and sharp, constant in both ankles. States the left is worse than the right. Worse with prolonged walking and better with rest.Plan:This point the patient is doing quite well with physical therapy and eccentric stretching. She will continue along with those modalities and as long as she is feeling good I think we can avoid surgical options. She will follow up with us on an as-needed basis and call should she have any concerns. Signatures Electronically signed by : Juan R Queen; Sep 01 2020 11:06AM EST (Author) Electronically signed by : Allen Blancas M.D.; Sep 02 2020 10:27AM EST Name Value Range Interpretation Code Description Data Krissy rce(s) Supporting Document(s) ID Date Data Source [id number] 07/08/2020 07:19:13 AM EDT [facility] PCName: Janet Silva: 2Provider: Deepa Le: 07/06/2020 Reason For VisitJanet Mullins is here today for Bilateral achilles. Janet had her first Covid vaccine on 05/16/2020. Janet had her second Covid vaccine on 06/06/2020. Janet Mullins is an established patient here for follow up. Patient presents WB in regular shoes. Patient complains of pain in the bilateral achilles area x years and notes that the pain is much worse in the L side. She states that she is unable to wear any shoes that have any sort of back on them. Other DOI/DOO: NKI. 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 Patient is retired. Results/DataXRays were ordered, obtained and interpreted today in the office. Indication: pain/dysfunction. Side: Bilateral Site: Ankle Views: 4 Views AP/Lateral/Obliques Normal: No fractures, dislocations, or other significant abnormalities. Intratendinous calcification of the left Achilles seen greater than the right As sessmentBilateral Achilles tendinitis, severe Plan X-Ray I Ankle - 3 views (XRays were ordered, obtained and interpreted today in theoffice. Indication: pain/dysfunction.); Status:Complete; Done: 06Jul2020 Perform:SOS22; Due:20Jul2020; Last Updated By:Taina Khan; 07/06/2020 2:52:40 PM;Ordered; For:Bilateral ankle pain; Ordered By:Hema Le;Weight Bearing Status : Weight bearingLaterality: : Bilateral Physical Therapy (SOS) - General Treatment Treatment Status: Complete Done:06Jul2020 Ordered;For: Achilles tendinitis; Ordered By: Hema Le Performed: Order Comments: Eccentric stretching and other modalities for achilles tendinitis Due: 20Jul2020; Last Updated By: Cora Dowd; 07/06/2020 3:15:24 PMTreat with modalities as indicated: : YesPT Protocol : Evaluate and treat as indicated, per protocol or as previously written.Duration: : Four to Six WeeksPT Frequency : Two or three times a weekLaterality and Body Part: : Bilateral achilles Patient is a 62-year-old female who presents today for follow-up evaluation of her bilateral Achilles tendons. The patient states that she was seen about a year ago and discussed surgery with Dr. Blancas for the Achilles tendinitis that she was having. She has been having severe pain and trouble ambulating for the past few years. She states it has been getting worse. She does not wish to proceed with surgical intervention at this time due to the long nature of the recovery. 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 States the left is worse than the right. Worse with prolonged walking and better with rest.Of note she is unable to wear closed back shoes and is only wearing open back shoes at this time. She states she also went for a walk at the mall for 3 hours with her family and states that the end of the day she was unable to walk due to the pain.X-rays of the bilateral ankles were obtained and reviewed today.Intratendinous calcification of the left Achilles seen greater than the right Assessment:See assessment sectionPlan:At this point the patient is struggling along but refuses to undergo surgery at this time. She would like to attempt physical therapy if possible. I explained to her that I cannot guarantee that physical therapy will make her all the way better but it is worth try if she would like to. Therefore physical therapy prescription for eccentric stretching along with other modalities for Achilles tendinitis stretching was given to the patient today. My hope is that she will improve to some extent with this.Patient will follow up as indicated for further evaluation. Signatures Electronically signed by : Juan R Queen; Jul 06 2020 3:56PM EST (Author) Electronically signed by : Allen Blancas M.D.; Jul 08 2020 7:19AM EST Name Value Range Interpretation Code Description Data Krissy rce(s) Supporting Document(s) ID Date Data Source PLZ SPINE CERVICAL COMPLETE 06/01/2020 12:00:00 AM EST eCW1 ([facility]) Name Value Range Interpretation Code Description Data Krissy rce(s) Supporting Document(s) PLZ SPINE CERVICAL COMPLETE eC W1 ([facility]) ID Date Data Source PLZ SHOULDER COMPLETE 06/01/2020 12:00:00 AM EST eCW1 ([facility]) Name Value Range Interpretation Code Description Data Krissy rce(s) Supporting Document(s) PLZ SHOULDER COMPLETE eCW1 ([facility]) ID Date Data Source [id number] 01/31/2020 04:50:53 PM EDT [facility] Name Value Range Interpretation Code Description Data Krissy rce(s) Supporting Document(s) [facility] DVSZFb3wTaDKAsYo93/ZQKygLLQeg1KpPOlkODy6NVvwWZEfO9XcMSG4jE0oMHY3ICvIIiVjDzRwDGS3 lbm [file] fqLacfOzC5XbZvGD6TKu9KMgO3WBK3mHBdOc7XIzKnKbwKOoCfHG5QTWi= ID Date Data Source [id number] 01/31/2020 01:45:03 PM EDT [facility] Name Value Range Interpretation Code Description Data Krissy rce(s) Supporting Document(s) Discharge Summary [facility] URFIKz4vAeRFPjKz53/KYHrnGFTtz6GlAYlsUZb1IPzxRYTaH9CbQYI4eW8xNPI2ASmGZzSnLoTuUYD2 lbm [file] 24HW/GbkzgMXwRR/Bl/Cn++mg2iKDrj9lA3kb1PCuNbXcDmTL+sz7k6nHW1sVLHLE2WQortMX4ChI3 5WTsrmfgFlAmSYCOI1dRgDjUvYXDR1kI0UCWhZ+NEHkRY8IcCq+pGcdOq6KG7OeoQL1F0aSPF/2mlXg9 JTvZQufsr2ofdtHuFzZIwUejMJykOA1GLTkjc+KfwM fgW/Jf9+B+/Ap/MBBTh5VaizPH63TL3o21vrF8va7rClwG+O2SOO3nF4U30V8rRxY4sNHcyPmdN44P2q KIuASkQxtDrhi63NBSirzNWrtsAfRP/iHb5SYDBc8GywstSx5obtBlaZYuBGBMy4r0YidSybVtJ+L/5c gF20W0vc4WaC1SwevPOT8T5szs7Ahp7ynuIm67U+uh Jb8Iz7CJbc8YfCW+AhLMAh+C5+PIvZjjMZ2yW38VidKa1FYwOkuHKPknVD/fgKpydal6L5fRTYfAX/u7 DRk7H1jHpRC1PQ+LVJdG3yGCTJXM7KI3BQZUKD4JEBsPNnBC3hw1MYqoJs00+ceRiKAVpXFZIIwnz5bH EoMC7wCgSJL5gi7eo4RN8WMnbt2Ag8pqocUrdqqxiZ ZQb+AVThHTo/l4SI5njwsgzvaGcJ8jQJtGqQ19v0PE4hgAcBSaPh1+V9deP9kN1D/zfhsdRxnMveARgv NP5idDEv01Pc6XccItw66Em9BgvK4uRucCmLpLCoRlo3z+wn4NHERY8wuk97A9DQtKCId4xMcbOpOcSF RYkeEil8tPnlst4F+ZfgTP7wBl6Laplg4P9C9DhM4B 3x09bdNe4arAq3RZRv24cxa9dI1kz8x/igmiPIo9dczutzxtNeZuThybx1zrfFjCpOMfqqP5odPc1W6u LysqhQcY/g+Nd9l6beyvMeiUZtbhdHup+UB8/Er37cXCcehK0oXEtRhsLZh4cBZsbxSb2xTC8CdiOQCR /GYyPPTbOjpyNBFCqNdN1qz/i/zYyfZd3nXi+LFl7A +Óscar/3JXAqhim5Tk4ZevB3iu1KsKYmvThb4P8EnC6D79KkkFaLFUG9D4VbGGy97eP2Rif9rF5ClI0kk8 [file] dGE+DQogICAgICAgICAgICAgICAgICAgICAgICAgICAgICAgICAgICAgICAgICAgICAgICAgICAgICAg ICAgICAgICAgICAgICAgICAgICAgICAgICAgICAgICAgICAgICAgICAgICAgDQogICAgICAgICAgICAg ICAgICAgICAgICAgICAgICAgICAgICAgICAgICAgIC AgICAgICAgICAgICAgICAgICAgICAgICAgICAgICAgICAgICAgICAgICAgICAgICAgICAgICAgDQogIC AgICAgICAgICAgICAgICAgICAgICAgICAgICAgICAgICAgICAgICAgICAgICAgICAgICAgICAgICAgIC AgICAgICAgICAgICAgICAgICAgICAgICAgICAgICAg ICAgICAgDQogICAgICAgICAgICAgICAgICAgICAgICAgICAgICAgICAgICAgICAgICAgICAgICAgICAg ICAgICAgICAgICAgICAgICAgICAgICAgICAgICAgICAgICAgICAgICAgICAgICAgDQogICAgICAgICAg ICAgICAgICAgICAgICAgICAgICAgICAgICAgICAgIC AgICAgICAgICAgICAgICAgICAgICAgICAgICAgICAgICAgICAgICAgICAgICAgICAgICAgICAgICAgDQ ogICAgICAgICAgICAgICAgICAgICAgICAgICAgICAgICAgICAgICAgICAgICAgICAgICAgICAgICAgIC AgICAgICAgICAgICAgICAgICAgICAgICAgICAgICAg ICAgICAgICAgDQogICAgICAgICAgICAgICAgICAgICAgICAgICAgICAgICAgICAgICAgICAgICAgICAg ICAgICAgICAgICAgICAgICAgICAgICAgICAgICAgICAgICAgICAgICAgICAgICAgICAgDQogICAgICAg ICAgICAgICAgICAgICAgICAgICAgICAgICAgICAgIC AgICAgICAgICAgICAgICAgICAgICAgICAgICAgICAgICAgICAgICAgICAgICAgICAgICAgICAgICAgIC AgDQogICAgICAgICAgICAgICAgICAgICAgICAgICAgICAgICAgICAgICAgICAgICAgICAgICAgICAgIC AgICAgICAgICAgICAgICAgICAgICAgICAgICAgICAg ICAgICAgICAgICAgDQogICAgICAgICAgICAgICAgICAgICAgICAgICAgICAgICAgICAgICAgICAgICAg BUDmFJKqWHOnFDKgUUTaVOVrGHTnTEExVFElVKCcXTNgJJLbWFAwYHRgUPKkSWBsEXIuXOMuSBk6J2ox NCBpYTXbOL1gTQe5Uo6+UPfPVjReHSG6lmDlpE2PNQ 6mo6IaQBuoWHCmb6CoBYa8XA4KQTVfYZilCA2ANJpckb6FJVXqNEQmzSVFl6geHxZeXBX3DPLrSyhkCZ 6VVMLiY9aoumShIRKhBOCCXCwnXJTTZWsjHFJIUGPbIGJvMkDrPJetOW0Dh5CseRZ7GFc+Ks7TFP2vs7 FqSLaiOgTbXF8tub5BXUpMSuVlU1YcmzE8YVJ6SPTs Bi1FAATcYXSwnYZqEtUcEMJISfUvH1BysE31YZIUQv3+HXvvrcVlVpvZGmJ0XCCel7NbCBf0NX4IWABg AFd1yORyAWicW4tlmqltXJI4kK3qcnfnUzwiI3yaztefAAafR2OmnUqsBILABJT3QMGxWfF2VqScAaUu FBH0KJQbUP9pYFthOD6XZUJ0UEbrPLPkSTTdZ8cOVo ErBMLgEqMigFrlKP0BOsAlP4XbfdTxpBIvGsDqNQKBCf3+ECozdfWlWgsJFpN8BWUst0TeTFy1QC6VUH XbXVngAM7NOGHqmM2bQAksRG0PWsGaBNPeOPKIUyFhX39czPVvTAm6P2EoQtSeSLIoKdemYYAmDYwdNz FtZXMgWyBdDQogID4+ID4+RFixAH4UYSjdsfLdORJd Nq6JTDEhDJUlHI6kTTZrPPGhF7S5rIpvVMSIJmPyZ3cgjdgsCX0mDNFeQ978eIfzujZdXIH5EDOsAx9C KRAnWIZ2IYFrlNEuPuImKADGHLwjYZ9ZxCIpXLI7vN2vKSngRTCkPUBsK5oLNtImeOsdFB81eUieomZc bCBdDQo+Fl1ROD3jr3ElCLm2arOkWAspWZU4CBshCR IlPWXuAEKdOAV5CFA9LDLTOuGlPIMgQQJjZKheNKCgGDLeah8VPSAxOAFsEiP9EgYkAACbYCZfIPnuZC SoYIA9GZEbNALdPUCuSU9PVoXaVKUiZGVtRHcrLWYvIZDsoz9KSXHnCFUkHya7TzEmEMRmBKMkXJbtRZ DmXYNuJTd2VHPhGYNoGL1ZBiUgJPCvHLfgOgemDYVp JUVqwf4VZYIpWZNtJfV8MsHlSNBsWYEbABsyOPRbQCJkGuC4MAIvQMWyFK1HEkDsBQStSGM6KMrpRFWd LDPaxs4DGHWnYPUpGqK0IcWoUYIfCCCyGCukQXCjSYDiIwgiMXQnIUKrHC0KYlHpXJFcFQE8NIBwUDEe MQDinw9EJMWzBTDvOha8LHJjTUYiFHQnFMaaSUDoOP F2IZEsDLYsKFBiQB0LMbXeNNPwMEXtJSQeVDJcLCPixi4AARPfLXXeNMK8XjQnTBVpDRUvBSkqNZHlAR J2LYhcDYKsXSXiCS3GKmGxGJRpPBQ1IPTwHUSqHXUlbj3ZPLXcNNIiVaTeVHCeZGKzEUOmVEoyAPAbEX N6ELZjAQEoOYXdPZ7LCyYyHUYpPUz7AZRqEZLwFOJe ni5PVRCpTCQzAue2MAQhHMCwQRIhKPwcHUFgLUV9WGi9DNHgTVOkEO3YEbFtREBxCun3UfWhZPJpNPJa tu8IYFNmPAYxLKr5GRIqHFLiAFSeHRgqZDItIMZeRDc2LNLyIZYnLM8QZxAdPKKbXxUnLhJiZKMgAHBz rj7JKBAkWKLqQFH9MbBcSENeQBQeQGreQJZiUBY3Bw N0SWXgKODzHV9DClXkSFTsHlU9IIHnYTPgRBTewr8KYTTwTSVmDYx7OzKdCIDgDFVzCMitSYUiOBA1SM l6CORkKSIsAU7CFuNiKZWcIoQpTZGgGREhFQXpnk9UXJUtHTFsMkU3TgUtVDEbNZIdMXakCMLjQVU2VR KiZOQsSPEmMH0YAqJeAHQyVxriPzBbULPxMYCmsb9X LJFbLKBaMTK0HXNoDDLiPZAbHYc6jdEpbBWaKOg9RJ5VH1RnmsNyNsoKDb7Rq844WXB5WZHoRn6IS4ua Cs1mOYFcJYVSSp5GFDg6PnplIRGdChZjOqq7P1AtZgO4YGS7NIRaQKSyPBV5GUV+SSm5ZDZ9BiW2TXHi HbW4H2UvTtJoLiucAMZjJVLyTWf6Mf8qANUTZf1+TOxkdNFbdJubXYYZVvM2UnL7PWhpNRNHAe6I ID Date Data Source [id number] 01/31/2020 08:38:26 AM [facility] Name Value Range Interpretation Code Description Data Krissy rce(s) Supporting Document(s) Leukocytes [#/volume] in Blood by Automated count 10.8 10*3/uL 4-10 [facility] Erythrocytes [#/volume] in Blood by Automated count 4.27 10*6/uL 4.1- 5.3 [facility] Hemoglobin [Mass/volume] in Blood 13.5 g/dL 11.5-15.5 [facility] Hematocrit [Volume Fraction] of Blood by Automated count 39.9 % 3 6-45 [facility] Erythrocyte mean corpuscular volume [Entitic volume] by Auto mated count 93.4 fL 80-96 [facility] Erythrocyte mean corpuscular hemoglobin [Entitic mass] by Automated count 31.7 pg 27-33 [facility] Erythrocyte mean corpuscular hemoglobin concentration [Mass/volume] by Automated count 33.9 g/dL 32.0-36.0 [facility] Erythrocyte distribution width [Ratio] by Automated count 13.0 % 11.5-14.5 [facility] Platelets [#/volume] in Blood by Automated count 248 10*3/uL 150-400 [facility] ID Date Data Source [id number] 01/31/2020 08:49:08 AM [facility] Name Value Range Interpretation Code Description Data Krissy rce(s) Supporting Document(s) Albumin [Mass/volume] in Serum or Plasma by Bromocresol green (BCG) dye binding method 3.8 g/dL 3.5-5.2 [facility] Bilirubin.total [Mass/volume] in Serum or Plasma 1.3 mg/dL <1.2 [facility] Bilirubin.direct [Mass/volume] in Serum or Plasma 0.7 mg/dL <0.3 [facility] Alkaline phosphatase [Enzymatic activity/volume] in Serum or Plasma 114 U/L 35-104 [facility] Aspartate aminotransferase [Enzymatic activity/volume] in Serum or Plasma 66 U/L <32 [facility] Alanine aminotransferase [Enzymatic activity/volume] in Seru m or Plasma 245 U/L <33 [facility] Protein [Mass/volume] in Serum or Plasma 6.9 g/dL 6.4-8.3 [facility] ID Date Data Source [id number] 01/31/2020 08:49:08 AM EDT [facility] Name Value Range Interpretation Code Description Data Krissy rce(s) Supporting Document(s) Bicarbonate [Moles/volume] in Serum 22 mmol/L 22-29 [facility] Chloride [Moles/volume] in Serum or Plasma 103 mmol/L 98-107 [facility] Creatinine [Mass/volume] in Serum or Plasma 0.58 mg/dL 0.50-0.90 [facility] Glucose [Mass/volume] in Serum or Plasma 194 mg/dL 70-140 [facility] Potassium [Moles/volume] in Serum or Plasma 4.2 mmol/L 3.4-5.1 [facility] Sodium [Moles/volume] in Serum or Plasma 135 mmol/L 136-145 L [facility] Urea nitrogen [Mass/volume] in Serum or Plasma 10 mg/dL 8- [facility] Anion gap 3 in Serum or Plasma 10 mmol/L 8-15 [facility] Osmolality of Serum or Plasma by calculation 284 mosm/kg 275-300 [facility] Creatinine/Urea nitrogen [Mass Ratio] in Serum or Plasma 17 [facility] Calcium [Mass/volume] in Serum or Plasma 9.1 mg/dL 8.8-10.2 [facility] Glomerular filtration rate/1.73 sq M pre dicted among non-blacks [Volume Rate/Area] in Serum or Plasma by Creatinine-based formula (MDRD) >6 0 [facility] Glomerular filtration rate/1.73 sq M pre dicted among blacks [Volume Rate/Area] in Serum or Plasma by Creatinine-based formula (MDRD) >60 [facility] ID Date Data Source [id number] 01/30/2020 09:31:49 PM T [facility] Name Value Range Interpretation Code Description Data Krissy rce(s) Supporting Document(s) Glucose [Mass/volume] in Capillary blood by Glucometer 103 mg/dL 70- 140 [facility] ID Date Data Source [id number] 01/30/2020 07:27:19 PM EDT [facility] FLUORO ERCP-OR [id number] RESULTThis sta tement is intended for documentation purposes only.This exam was performed in the Operating Room by the Surgeon and a Radiologist was not present. Please refer to the Operative note in EPIC. Name Value Range Interpretation Code Description Data Krissy rce(s) Supporting Document(s) ID Date Data Source [id number] 01/30/2020 02:15:08 PM [facility] Name Value Range Interpretation Code Description Data Krissy rce(s) Supporting Document(s) History and Physical [facility] UQPMEf0vKoYMBrWx87/IUMuuONCng7NjYKbpJZp6NWawBBLyF7DtLIP7nR3fABI5GWzCYtPmJvOuUCXv m JoNvaXFeQtYYVbZbhVKhCvBAckAlbljMRaXN8WvZX3NEVaV62kMGUuAFJmT8GoNAW0TVp+Qj7ULAXsjD BqBY6BBlaF5A6hk7m2Af4+uX4SBckdaNUpLII0eYmBhwszvoYIB0vl9nr3QP7RRSb9udAknpmvO6pdPa 8TsFcz7wsc7rJfkxV7N8i0QNiZLUXc2j8/2FbgWZbF in+iM0IGt6zw+/QoTC3Ey3lI8k/RQ+CUytVKHB3Ib2Uh+y+6JnOnD0rz4umxEn+1NjWfkrgX0yYBpXb9 mY3+zWzHyUtycVmKni+kRBTathA/S8Ng7b5DWPYW6CZZKYTP0cj4qTDU3lXR+KdnzH6JaXV4xOAFMV6r PO+Pio0A0Lc8g0XMYibiYUgHpPkvRRdwdfo1crHpJi 9ltb9vce0W+9l2K9jAo+7EUiczBgT4Oqbh58zD4dsM42XfZklpoGya7+kX04BMy6QTeX50I26WFINpJQ /exG8m9bKK1GRh/sgpqfR7mY8XFDwQrurgn4Da2XX/WcsF9WQ/yzSZLdl+Rb7g9aSUwNrf5QaWUsEuqc AB9OmLt2utx4pslH99pcKPphySJO6iGicZJfJetQEw YDME4bcmPCyNlnihuQCgRMiEIDCURg575YlHB2U5MwlYb/R8IcdLfmV4zn2av3IjJt8vu+ojb2XX+Derrick [file] M9bWIlWd3XIiJ8RlBAEcXpOA9QZDt= ID Date Data Source [id number] 01/30/2020 10:48:06 AM T [facility] Name Value Range Interpretation Code Description Data Krissy rce(s) Supporting Document(s) [facility] XCZLUh3bWrWGXfRdi2UkDjDzFLJmWW2lwda3J6C8kTFlG9UjyXQil1mmG9WeR0SiWJQhWUITIC7NfAOb jb2 [file] 5GPTnXMOUmNXVumwTqDQhWL5FOFMWGYRWmuGZEDbfH CZ6UDHAOJXPtNQObiaPUGMmUFdVNDdZIMRRxgWFFFuvQ0E9OiTNXMPewJJNcsnSWFQahJSCNSlLFIJZp lKGKKazYdL6NcEjNFNpoRActkrY0EUkbQXSOLiZPTvOzpCSENlcOMV5F7PpIw9kRYvS33YbAlEfcrrZB dOW8N8jk8G6DFCtmhXF7wtAQqBdi2fikSaYYlkk3Tu wxaxuh3kNOAE8Ja1tlNX7IkNEROeNLD4qcBT8AXFRK6Yi99kxqQEBu7Wil5vQlAHAl30ffc3jJ+33Pia 2+x5U39b3eqXUSQeCkNDAq4tnCG3xZwLZfAzI1ITbW+bMN2T7FwXtT7/Qvms4qSMpfNDo2SRUuLffyO8 tDo2Lhs67lIanbWYk0HRdbXv8yW3r5o6S+g+8vEfoQ UZm9EDCfBpR+k3mc4bsY5t7q0j7cCl/vGhTh/s63DcLEBkhqZPCZ1i1bRy/vGhTh/qHx/q9KH+8aFOH+ ofH+t4xk4lsM1x6q6a4kKr/vGhTh/vSr4rmslC21OS3ZeIuzuP0xkGj7mmjYICe7sltOgri2CwpTtMGX F2qnaSAU92hlcKDB24p9eu23ktmisyjRxtr1UcnIcb sJaesXeWoPHcYi8og3AN40pKDkn8fMIu1yV5UPjXXZQVSC9gmNgkJSDKs3MhCwX2NltoMMXPAx1ylVax KPoY29RtOpM2r7a//5nP5MPSVeUoydi6pkF/+0uDObu0+j//7T/Dn+d//gFnxcun68866fslqjPSPu+K 09Ytb0GlrwE00IjiO9k0qdcb8OceznDrqXyQz7VtG0 1Jppepxgg4oq6Teuagipb0ue2Jszejxkh5cp2QdgrrZus6fp0GvbsyBuy5lg3Tjimr3au5k47Fyfqt7j g1i82Yvuwp0miJad80LHziLRIzM1LO9vlaLPQV73wvEf06dW057yt2cBXyb+Q470ioUNFamSB6IpfxLG /77KjXUa+iVnr3iaew8EhewhQpoBhP69T8R/VO1DtR 70S9E/PP8ZuY87H2L/Yn0NoC82R2O/Hy1ZcQ28C2F/Vq8MgZ37z5H/Ry4DeB87q9C/Xn5EjL88z7Q/WG Q7vXWKiggqXEL1kL2BOmL6/CaXfgyy0J/T7+ZRkjd0nCwl/0Zb39qCbE0+O8j+s+5ugMm45+a/Nbm9/a /Nbmtza/ghfklF7hbcxvn1D9m3w1owwkf6y5ePcvg8 Z6a3r3cqtaM0l6rPsqv8K0p7g6paLjC2c5lUujz6I9b4u7xx5b45z3rNxcl3O9q7c6nt0h51s6kWo8/u roll handler+P911nwPB4lz3p1LhHG1B/O+QsFp/R31X4QwZyL7Hy2AT1gZHiVO5lF1NA73XLjCuKJylAjV/qO0m [file] XSl8V/Chi+cXtWH4mwJ5XZ55sc1Z2iQlYzgpyjHZIa34j07Bn3k7DTavy0dWGM0zw3j1p7x38qltO38wn ZsFmwVbBEPnPyxse7+mN/agL+UvP+Q4vrrhmfQ8IGO iQ6H6CYsCQ50ELtw3GyAT0m8Kx6eSCNwiF6ne47Rpc3/KG/XbSmocwyPHfCBkDdRTDikzxxiEn8jKadP bgiIag4PwUGYgiQChEZvUiYw+Pstfbiipk5RA3vouKHrA4eSBh2ANCn7hbsbm4gVMCTxPN2iqtNmJFkQ NCktv6AE9jrCLqDUMmcrJZsm4LiG58P6Nm4Nw2BULk 5LuvFGXukIRlJt/N+gb5S0+++1dsFMK2I9Cen1brPITQuremB01Fo3ZlDsu5f2DKyu++OdtrkQhY4E7q FUfEXfMV9YX5sxuXlYECbk517rxLpIu5eAo/SszzMwyQ3q7RYyAvAJ/pR7b5/gs1BoWjjjlLJurWe22w jR343Omo+lHy3ae+APr10KyErq/w6yfBh3IkuCEyGU d90c+U9u1UWt7xvbsPCzHbh9uujJZjcVdxl88K2BIC2tm1Qezv38EFkSRGTbusYfHsQlrRuzKrrlyM0I v7Wka2kORAynY0eUGBg5GMz5KZk6G32Mtxzrazntzywsoxytk+Fxm0ppk5gio8reu/NtZ2dD2E+f5y38 LzwRRmzq07rlPBf6dYj4XoCb3HfcmgumP+Lainey/7NKP fnhYx1ayW4/Xqk6HqTs3G6n5bwFwphPfISCTCwvrw/ko+R8g07RNhPSKpw/w2guapXk6NLKSenVjZNbn 8obHX+LverzOmp0Vr+RFZT6rc/DKsxUUFrfyizQPWCwgWKyrT3abhrZAbWxNzgWEbPzxZyRydbP953He n5mnJ0cqDrIkEILQOrsucN2L3ULJIaMgXlYhmHl5Db I4ks6A3k4/3EV3ji/yj82t242PzzZpNFoJa+/3cFWq1WNe1jIUKyCo9cafUYtXG9B4LgkmaoaXLv8mNR /EX7d8iviqcmg+Z2z90jLUB+7View7lzl8oEX8h/h9sywl1jYuGjrWicJaJBp5dAbwj5/lDWLPL0+8zm CiBzyuIAThEt9wROZAf5/IV3946f/d4lH0iLqCE6qC Qtjd7tA5gKfAN9+BfqxghhFn4X1/surTANq4pId4yJtRviBaoejot19eZ/qhdojUa6pcI2C8A9mF2P2D 9xB81/MdDcbrNPluvpXku0+FMm3Vpow+fXz986x4L1/sGX9dnWct1a6B2S5ZbbNaKt8qABD/Ds87Klyy fMptvw18Nv86xObD2vdvdna5yBtd/1rubpi/KGpe3T OmtqifhdfEMLsdK9Wa9z2ZWdpTk85I3vebF53pBWzc5GmHsjm85uK5RvpSfLT2hcR7wmY+P1d4n/Wkx2 /U7vNA+tGvXdUU0v9/91/3cyR1Q89I10+v6O6Xg8+/UM5G+fum/958wt5m/L3o+4wl23vC65Zyzfwvsy /waz3ZmB+kn/vgdbz75s1w6/32SD/mPr5iwLB+85KG 594m5sswsyyzx/ebz+z1FaiskN740H3ek7h6/4HogMwe48wrLhsFuftHmK37w7djA57vKVgl30PMRM48 2+l22+9+9mNEG88P0/dM9Nim2llyIiwd1wqqi9akbW89a28DJ7R56fjQBjzmdqXXvH+J/rpPgig459H/ rD392MzLk/g9+u9E/99a2hvce5mhcQVCtyA1Qm2+batch mixer operator S2Z+ch6rgNF1eTdvitjb4skWd0tO5zrkd7Cy5759M+u9B/N/piuyn7YH9t8W+N8Wp3/T1cfwcZ2041f5 r624lVkvgesad9IxZFy3xo8Gy+36sTfOelDEff/r6j6Ha1935Cm42n11pHh6weo9uTz/5emuDPxQa/8S zqt7Liqg/fJ2dmvstVn4X6k3GU81w33IyD9F82BmiA 0slmhU5D8Mamu3/4/DdF8GbkY86h4Hos1ddd9iIq7k/25RS5d4+Mk2f5k26AA258//C5rPz0Wkw+6Dui eR15U58ogI1nzC7WY0chzTIBAD+aADhsjKh4W1rVGAkefjKT7O/KnHZA8XS/kjAW2QG3BkLIbldqCHSX gq22ZaBC9ak5vKAwfoHVl3/agNppmdqED6lqevx5JW 2en3qtfkt5eXXJ4785rc8SNfLATmBZfj+/4/d50G84dnX0blA05z5LRAU9g4UeQwhXfftqFadqzEdloR TmsZPIvsPYRbffHY32o9xatng0H22scvcnFhexQoYrsVlCS74smruwclXqq/v3WZl7ltYt3QsZl77B9n yeEfsoeNmR015Kno6ZIS/v862v+hmqL6U8yV9zsha2 7/v91mrU5kRNl/N6X+dma21sj/pa13rwiO3cZOdfKvOHvq/heMDxsO/chOsnXL/g+iQ66n2Q/vfbL73r OL7h+AzkNymSqiFmCyyl23m3Sro2IL4xBPY7oYH4SdOmjG51//5+l9ZX/Zs6/L6tr+1mhGrB1A6IHC7H RVh3smFf8ka45auzuWqe7COdSmEAZ37hCG41Th/1A5 059MgDsouedIayxrvIuzXmj6F7OHm/ra/3ZxdlcbUBwd3Qg12RjLewvYuoeDCnhKB28k4ufOGp+p8H/o bj0F+1vpq/NxzfcFzguMBxhesrXN/iUYgp07rpICZ/b8Lvm/D7Jvy+Fr7zmbEYY4Ck/l3QX7W+mr/h9y 34fQviuSCeC+C0GG0Qyn+C/yrwjjwqlWcm81+7q3jg pezL9mxy8qgK+qv6+mlVbrV5W17mGJ9y+O4lijaLzDaqQyUxc1nKzEc4lwSXe0zEo3o3NWxnDqeEKF2x XGT3uoWA3/DgD25Rp1MkDua/3byCFd2Amags8Vyzr5R/1jc+Y7IYacfFZ+V4331NzDPvmq7yekD2n9J8 EayYIT2bK8/8t/bXX9V+1JrE6tuDv/7Qsq0iz5i63w fc+mr+hudtfTV/Ioy9aR7686M4XeM18KmF2GWnNqz/vVGtr+0yeCdD8QZO1Ypja3/V+srn7y/+W1/1/t ZNY73Zp/WO3fIylID//093Gv9L4/Oup4/HA3/P0SUZQ8ccDI/18fO8/V2tr/oeWl/1vSnEM+ir0q+/Kv 2Hi0v56M5JwXqHM/fv7/rHeCbSJ6EX6ZMM8lse5SJx fXX/yn5hSI7AEP2m/NPPZZ9+rtZX8/gU4gzOoto+7IfUhemIeu8pvpLFAss7IO9x8TP8u/k4t2424zy7 P3Ors/N/5stn4//0y5UdqfMpB1d/Pde/+R38y36j//Pu0FpKnqnwqWzf+JkhFWv6wfMtx+MFzq7GZqdG UW7tMBC4fgUnT3x0+N/ldpeUy435/V4+f7/h5qT780 b00E12gPyfc54kEgFW0d/33Sc+f/rKU+bv3/H53t/8N06+4mzrn/d10xGs6f5kucc/f+vfR/1WC/j9vr NN/aevfDaM//TV+/oa83728x047pgs0/xGG6qm525qeo10SKvln7nkp6HS71276b51g1R48l/5va/ze9 [file] TpYa7tFq9+V1VV2Q2/FPJxVYYQXUgGmL3SVl6+ 3T4/uUWjFs0pPm8qKyPWm29i5l9EiBeH8e4QfeNZmVGjuCkGDNAbxdDeQbLcnMDSZhFuDQWLEUMwOC/L LJL/ybrolnRtizxexnGk3b9B580sVYzli1441loBfBJvseSWqiTYvpifjhI4tj86sWeQK2lD4o8CiVkI xqASOu9hFD/ZKZ1RrsT5oSHG0hSimpvXAKEha4Jokj LeUpMgG9dx5+e3L7UgvUEr5EXV4D5vYFW1kUjEw5YzH5Q9/UZxfFeT0y5zar+ui1Hm7zBC1n6vCLYRuR I5rC6r8JiVVVYRX8DKsGo3qcixhaVq82GXKzBJvoFTJGZeiUGr7nph8u0UxsX1bTiT7BmiGbJ8Z2H5e6 ovtlRNwK3f9Qs4Z9T2jtyQhl9+mjGXuQ117YpJDDwU r11K8MfeR3D8NuyPmt8lxjeg8bj67ziT7Xo1fEMsV4Eok35lM77kJCzIOwu4JpcC5PrHz4EW/MFkB222 8pQEaf7w+w8z27Iz2oDkX87ehNVEmzZuM6MfTKtbu2ER1ewbb2crerDyhy9Yp9m878J9akMq7GyLGnXW uLnh9ciYz3y7bB4st2Mo23E6kPq9GpbkZ770nPKfzw isHheGEXYhMgRteQSCWyTpOSLXprzga24m5iEwTeEvm3uL8npf2Ld61X0/27BtZfMrZJ2Te0A8d1aD5U sm2yjmSyNOdi7U9UWpR75q4wO40N853dz4qZskE6BF97f+maHs+6da9xCxlqpMeXxT3oEA4FFK4vtDOX ggG2sxt5i7Z7m3MI46hTWOVftfn62kyndng+mRrVXd PjmfLVXdPjyVuN4/jltezBTxpd8/vrdoypt50qg19IO5aAAUEvpmCj6Pzsz1RZ7Lzq2/92dxER22p5yq 6HSB7ua9+k6m86OA7ybxgGVOzQ0462J+0aF2DsG4uO0/Z5fkXzfyiP4lv2j8d8HPwRiHP6qO2jYEw2c7 y1kk5Q8t16SXf83qWW0bkH3F15qumv5K6P153EqWap [file] 6Eu9nCl37dYIB/Sbz3td+E3b+83rR9J/7z3Kw70013++Eo9U0c76nZ/fzCJ4/G+++e6ih3253rc3a18/ /er9Vx++kGq818+++fD9+4/flcp470/1//bov12aiz+//c2nD9+8f/v4/tPHD++/f/x6U5fqj4I1FH70 p4hvNffDA/rm24+/et39uw/f/Oa7t4//+NtP//vignesh/ LreyS+f/31+3/49Pbu//td1yxL32//8O7Th2+/+Aguilar/mmkTS5895wA41++//frTu1++f/sx82mG0g8+eP f2D99+fPv6+5s462n73iFh0//q/Tef/u7tV+9++/aL92/z5sSNly/3+cX0z719+4801855o68o7+2nt4 +/+cw754uKqs+++YfX3V+3fl28+/jlp7e/e7uf+ptv vnr/euzrZd5/4BaozkbF804+/e3rPz++/uf0459/+/XHb3/24g99598T4/Zf3/5kr96y6b/jdHtN1426 91ye2Iqty/nTn+0stfFdXm/orqC7a5/y+uV3b+++f/fh63e/+Pr9X/mn2+nZFvnTH//193/+w4//8vZ/ /a+3L//thz/+93//4fd/9/aLP//+hz++/fN/uYmM// lv3/70x1dT+Ln0n+0P8k4bnxvOgfi9l/iG1Fyvdbw0N//wh5//B5+9nPBtnkg8j++I16g6xbWh/eP/C3 BP8x5w/r7711kJjaKyck0gmi1hCez1hLnxa/3HM65yClbVy3/G+dZ+ed9D5lJ/4OOP//rjn/+6vaIQ20 tX777/8NXbb7/9zTe//A1pcnmB/qls/An6j8J3x8n9 o53RajduR41V++2NFXT87lZioqc7/Y9//Mvfv/35h7/8+PldF2Q6YbL+uX/2C67rfY1pDc/p3Z9q//Ht 93/8y49//p8//Atvdo1f2gn7e7h/mM+f3v1g//Txu7d/+R+vd//9n/7409vvtHk/aF6w3xF+6dPP/+nT 7/iR1yXA+xw/H71/dvdd/j8BCtjGV+f1moUC/Fn3z+ 2tCL6vvvmyM//s488+vf3w//z4H/+52TxfrvnPvnr/5c/slKsm1qlpGx/rz//8tz/59fkS//ZxG81458 ++8foM//KH//G7H/7jVdt+jzaz8Fs//ta71Pnll/69xv4nZ86s/OAU6Os//y1Rtlesr/eTB6GKt/rxd/ /2x9//8kQUP1h5dy/96aYhiZ/+j72k8sgfjau8V//2 45//7tN2h4QY5D7k4e5/tt71vc7v0q//T+45mrxZjgK//uG///cR0x39h8180Nh/OKsreHt7/+oM7v7v 6r8Qe35CEa+N4/N0A801//PC1K5bgr/+003LD818efuf+3VPxkzlqef/I61xyVhSSJ6ap5QpNQQvBcYj UC8fkawmDJQoBK8cvtu9Y5GdnLdnBAcEPGJyFx5uhW StDE8FJDD1VTqaMJXlJJPcM4LmmA5cR93heYKjGnAzVNVRAR9AcgB9UZD1HIS2HMHxYlUrJJRhHR43RW RdRPWOLt3uhwIdKegZVzKuFL9pfvw6P9R7rVZpK870nFxcnqSpXO5Df2HsbOTrSI3NlIUszIRtCVUkUM FjQ5zlz9ZbAIdcAEDMLu7zmnChJnwMQyEkTB4okbm9 G1L4sHnwimPuCLGETVqzGttxTP3ejJldxnhdU8LfsDNeCQVjX4CdPOTcq04YPFXmDPvEPiSiQiZnQYNo QUR6PXtzFnJuYGRfRURvOPFyFW0YaOOiTFAsVOXZDBoiDyvvMOTfdV8syVSDt4VeK5VJGjBCStieQx5V BJKBYnMrMAF8KvfzZYNlO5FyvuHtsLIxITWPOJasDo inSIWacC4wrQgqX1GaOKW3a4MbSM8HD6OlQYQhOHPJEDO0x3ExPAAjjwcvlezuCcFkNCTmEEEfZVQqMV 3Dlq6eeGWawoJxOVBDLXbqXifsQI7trBcymjrcK3HaxQNdLBI+HpJeWU0qoy8+KjAuDTKlOld4HNHaHN ryRVZbGKNgQSNkG3unZHPfAqMdUWPiJvLzHW5Zu3Ul eXUdWh0bwsZgFjrSzKOmRtcyLCCgMXRdUDXeSjSDCFGxMMRcQAKcJVH7OGMmFDHdFMasJRBeLDI7IIDp PZIoPGDnFA0vOrRvVVIeWaH0GqAlOCDmNZWmyaKAJUQdNLS8SOqpMsDqULNqXRNsEHdmBTKpNAUxUHLl CDK6BPO0VKDhTkBgETYnULNbHWFyJYQhKFQspyBVRJ PePENuJXN2WWIzXIDuNBGbYCvnUHDsUGBwGOruAZFoTNPlNK2hKzPzQZOqNAOgSHzbZUDmVNVnoqXXXY OcSJTtHRHuDYUgLNZkAWJyBVutTAIaUJUxDGYzXQHnZTAtFH0iOsXaNKJjXZT4URLuLTVeLFFhwpWOKC GeYAOwUKp5URKtVYPbYDJcAVhxLVKgYOYlPZT8DTYw HSEeWA2rDoLgXWClRFY3UlBlKEFgOXJdusZREHEfZTZkRUV3PaNnHPPxZFWkRVmkTKLgKHUeJGdmNJTt AUKuNY6fNvPkQBHkVATzQXtlLKYaVYGrxmOHLAIsEGEvRPOaMoKwUDWpBFAmDBgqNOBsJRH8XcU7ZPOs JTLoPQ7kXgGwASScBFV0VZaqUFMjUHClleOZIGFcQW YwEDhpJJWkCMLoFQWfTWkwAQCnHTGhRXQ4HJChWXVzYR5yIzHgPZVjOBSeXEWaXnV9QgOtPqOKfWBscW igdfb3BOwvF0h0ARFdFUjqPN5ayrQySFIjDucvXn9ecAE9GOAiEbaDHl3Pl9MjxzV8enOtBgS8KIQ6Fc Ul[facility] ID Date Data Source [id number] 01/30/2020 06:30:08 AM EDT [facility] Name Value Range Interpretation Code Description Data Krissy rce(s) Supporting Document(s) Leukocytes [#/volume] in Blood by Automated count 12.3 10*3/uL 4-10 H [facility] Erythrocytes [#/volume] in Blood by Automated count 4.16 10*6/uL 4.1- 5.3 [facility] Hemoglobin [Mass/volume] in Blood 13.2 g/dL 11.5-15.5 [facility] Hematocrit [Volume Fraction] of Blood by Automated count 38.8 % 3 6-45 [facility] Erythrocyte mean corpuscular volume [Entitic volume] by Auto mated count 93.5 fL 80-96 [facility] Erythrocyte mean corpuscular hemoglobin [Entitic mass] by Automated count 31.7 pg 27-33 [facility] Erythrocyte mean corpuscular hemoglobin concentration [Mass/volume] by Automated count 33.9 g/dL [facility]0-[facility] width [Ratio] by Automated count 13.3 % 11.5-14.5 [facility] Platelets [#/volume] in Blood by Automated count 201 10*3/uL 150-400 [facility] Differential cell count method - Blood [facility] Neutrophils/100 leukocytes in Blood by Automated count 85 % [facility] Lymphocytes/100 leukocytes in Blood by Automated count 7 % [facility] Monocytes/100 leukocytes in Blood by Automated count 7 % [facility] Eosinophils/100 leukocytes in Blood by Automated count 1 % [facility] Basophils/100 leukocytes in Blood by Automated count 0 % [facility] Neutrophils [#/volume] in Blood by Automated count 10.45 10*3/uL 1.8- 7.0 H [facility] Lymphocytes [#/volume] in Blood by Automated count 0.85 10*3/uL 1.2-4 .0 L [facility] Monocytes [#/volume] in Blood by Automated count 0.86 10*3/uL 0-0.8 H [facility] Eosinophils [#/volume] in Blood by Automated count 0.08 10*3/uL 0-0.5 [facility] Basophils [#/volume] in Blood by Automated count 0.03 10*3/uL 0-0.2 [facility] Nucleated erythrocytes/100 leukocytes [Ratio] in Blood by Automated count 0 /100{WBCs} 0-0 [facility] ID Date Data Source [id number] 01/30/2020 06:34:32 AM [facility] Name Value Range Interpretation Code Description Data Krissy rce(s) Supporting Document(s) Prothrombin time (PT) 15.4 s 12.5-14.9 H [facility] INR in Platelet poor plasma by Coagulation assay 1.20 [facility] Routine intensity oral anticoagulation I NR is typically 2.0-3.0. Target INR must be clinically individualized. ID Date Data Source [id number] 01/30/2020 07:03:02 AM [facility] Value Range Interpretation Code Description Data Krissy rce(s) Supporting Document(s) Albumin [Mass/volume] in Serum or Plasma by Bromocresol green (BCG) dye binding method 3.6 g/dL 3.5-5.2 [facility] Bilirubin.total [Mass/volume] in Serum or Plasma 2.5 mg/dL <1.2 H [facility] Calcium [Mass/volume] in Serum or Plasma 9.1 mg/dL 8.8-10.2 [facility] Chloride [Moles/volume] in Serum or Plasma 104 mmol/L 98-107 [facility] Creatinine [Mass/volume] in Serum or Plasma 0.69 mg/dL 0.50-0.90 [facility] Icteric Glucose [Mass/volume] in Serum or Plasma 95 mg/dL 70-140 [facility] Alkaline phosphatase [Enzymatic activity/volume] in Serum or Plasma 122 U/L 35-104 H [facility] Potassium [Moles/volume] in Serum or Plasma 4.1 mmol/L 3.4-5.1 [facility] Protein [Mass/volume] in Serum or Plasma 6.2 g/dL 6.4-8.3 L [facility] Sodium [Moles/volume] in Serum or Plasma 137 mmol/L 136-145 [facility] Aspartate aminotransferase [Enzymatic activity/volume] in Serum or Plasma 169 U/L <32 [facility] Urea nitrogen [Mass/volume] in Serum or Plasma 11 mg/dL 8-23 [facility] Osmolality of Serum or Plasma by calculation 283 mosm/kg 275-300 [facility] Creatinine/Urea nitrogen [Mass Ratio] in Serum or Plasma 16 [facility] Bicarbonate [Moles/volume] in Serum 25 mmol/L 22-29 [facility] Alanine aminotransferase [Enzymatic activity/volume] in Seru m or Plasma 358 U/L <33 [facility] Anion gap 3 in Serum or Plasma 8 mmol/L 8-15 [facility] Glomerular filtration rate/1.73 sq M pre dicted among non-blacks [Volume Rate/Area] in Serum or Plasma by Creatinine-based formula (MDRD) 88 mL/min/1.73m2 >60 [facility] Glomerular filtration rate/1.73 sq M pre dicted among blacks [Volume Rate/Area] in Serum or Plasma by Creatinine-based formula (MDRD) >60 [facility] ID Date Data Source [id number] 01/29/2020 11:25:17 PM [facility] Name Value Range Interpretation Code Description Data Krissy rce(s) Supporting Document(s) Hepatitis C virus Ab [Presence] in Serum or Plasma by Immuno assay Non Reactive [facility] No serological evidence of active infect ion. If recent exposure is suspected, test for HCV RNA. ID Date Data Source [id number] 01/29/2020 10:31:41 PM [facility] Value Range Interpretation Code Description Data Krissy rce(s) Supporting Document(s) Troponin T.cardiac [Mass/volume] in Serum or Plasma <0.01 [facility] ID Date Data Source [id number] 01/29/2020 07:20:12 PM [facility] Value Range Interpretation Code Description Data Krissy rce(s) Supporting Document(s) History and Physical [facility] WCMJFz7vHxEMAeQx69/ANPueMZRbf0JrJVdyQKs2YAhkBLNzK2YoQZN4sD4iWOW3ULyKMxZiWeUvSHHw lbm [file] AgICAgICAgICAgICAgICAgICAgICAgICAgICAgICAgICAgICAgICAgICAgICAgICAgICAgICAgICAgIC AgDQogICAgICAgICAgICAgICAgICAgICAgICAgICAg ICAgICAgICAgICAgICAgICAgICAgICAgICAgICAgICAgICAgICAgICAgICAgICAgICAgICAgICAgICAg ICAgICAgICAgICAgDQogICAgICAgICAgICAgICAgICAgICAgICAgICAgICAgICAgICAgICAgICAgICAg ICAgICAgICAgICAgICAgICAgICAgICAgICAgICAgIC AgICAgICAgICAgICAgICAgICAgICAgDQogICAgICAgICAgICAgICAgICAgICAgICAgICAgICAgICAgIC AgICAgICAgICAgICAgICAgICAgICAgICAgICAgICAgICAgICAgICAgICAgICAgICAgICAgICAgICAgIC AgICAgDQogICAgICAgICAgICAgICAgICAgICAgICAg ICAgICAgICAgICAgICAgICAgICAgICAgICAgICAgICAgICAgICAgICAgICAgICAgICAgICAgICAgICAg ICAgICAgICAgICAgICAgDQogICAgICAgICAgICAgICAgICAgICAgICAgICAgICAgICAgICAgICAgICAg ICAgICAgICAgICAgICAgICAgICAgICAgICAgICAgIC AgICAgICAgICAgICAgICAgICAgICAgICAgDQogICAgICAgICAgICAgICAgICAgICAgICAgICAgICAgIC AgICAgICAgICAgICAgICAgICAgICAgICAgICAgICAgICAgICAgICAgICAgICAgICAgICAgICAgICAgIC AgICAgICAgDQogICAgICAgICAgICAgICAgICAgICAg ICAgICAgICAgICAgICAgICAgICAgICAgICAgICAgICAgICAgICAgICAgICAgICAgICAgICAgICAgICAg ICAgICAgICAgICAgICAgICAgDQogICAgICAgICAgICAgICAgICAgICAgICAgICAgICAgICAgICAgICAg ICAgICAgICAgICAgICAgICAgICAgICAgICAgICAgIC AgICAgICAgICAgICAgICAgICAgICAgICAgICAgDQogICAgICAgICAgICAgICAgICAgICAgICAgICAgIC AgICAgICAgICAgICAgICAgICAgICAgICAgICAgICAgICAgICAgICAgICAgICAgICAgICAgICAgICAgIC UzXTTwRMRbHJHqMAp3G1gjFKMyGJJmLL8kWAt1Op6+ RCtKJkAaEUZ6gxRwdO9ZVD8qj1TmVTpzGLRfm7XhLKr4MZ5AIUDlLDppLJ9DRMonut5GCAPwEKWbcNYH u2leDgYxUXW2UOLbAekeAB1JXFObZ9wrrhVmQZSzMTUBYXeiEXTYAIdnKWOJHKUgKODhQgKfYcLtBQLp PO0OQTFgT947zjQaDE3ZBh0NSaRfWP5vyd6XFpaiAR WyPxrXWns5GPdqVS1EgNCldXQyYVLoZHIXBtSsL9zwo7GeTpytCUBISLrhRK0Pm9TmaDCrJCj+Pg0KZW 3fk8BeEZalCMEqPK3snx1QEDaVYoBfF2KoqDngIXiiLBBvxLBCCJQ4QFuwgJU0f5DtWVPPSQOwtKPeKE 7aMx9lNDSkWKF8CxG9JETVMZ4SIHRsDIWqaXMoALYi PCQNPT5HEZojOQN7HMAiltMeeRAtGQxdEE5XBGYawtBcWodaMALQJTf+Cq5KGM0hx4WmTSyaXVAmLL2z yt0ZDMsPYgFpA4D8iNUjE5N0HXgpQw3UFMWtEIItTwEvZBIMDSezNT8CWT1rqvE7HU1DiUUgHNElBUWq tJPrUGr6A06omFTmYQyyLL1OSKR+Polo+Rm9FUMIaKW AzLMKdTsXnXMLJOxKeN6AyQ7DXw8SaA9WfER07dLzisdVhMZpcCV3ZWK6nXRBjBLZAAI6WuMOqhJ7ego UkGnXkLTZOSyKsU24kcKVfTUOaIAY5KTXlKi6WUHCjQ6LyuiRmoItvsfUaWBRzUUTKPO5HGGzfjsKjqF AetGrqNI96dDweHH1CGr2HHsCkBJ1pcs6XfPMqLl6R ZTReAJ9NMLJnOLViPYLxQKY2PEYtXcRhJCdySUIzTXVaBHE4VPIpNWUuWO1SGfClNVElTiy4PFYvJCTx QZJebn0BPNPdVKXgWCCfMVZyWHHiVMVpVTreAFZuCBMxBPH1NXFlYLEdMI9RHqJvUEPuJXXsWdbmHSGw ZRFtuc4ZOOLwKHUzYyM4NqXiVUWvOOOvBDcmGKBzDF S7VUAtCZMpFBMpVM1FZjNsAVGlRJQrOKDiHGKaDUMstt5IOPJiHMRwFNB0AFAvRZIzTXYaQZgbCQXjKO T9JPa1LRJuUHOpFG1PEqLjHBYjPAJ7KXLbVDSmERVnuz8DSDQtNBHgWXz8GAQnOOGaOLDnNWpfIPGvZE WaROzsEMOrIGUcPB9MGxYbNJLmNJZ5VQpuLVPwYUSt lb2XWYBsMYZoZoE7MpYwIOLcEHGcHCvwOILuFVGrKFL4SATeDGJuUV9HTlYiMMSzORHvAeneQULhVIXm mu7CVMXiRMDkHHu1TaBuBMTfQFYgAWpkSZLpHNM6XSw3UVGyBTZiKN2FOfGiZQFbSSNhBcAcMUWrSBZz qk2TWDHqIVTwJbe8UPInBPRaJDEtYOzeHFQgGEK4UE x1FRMdGTXpDF4UFtNxVQOlIfifMDmwQQNfSEYqng1FJQFhHPTyNrKtHoOyUYVgXSGjRMbuEETuTJW4Jo jzYPBuTPAcKD6MHeUhHUByEsayBxObZUPvBTDkfw6FLJZdQFJaVLSvPOAwOTHoFTLeZSpjWTJzDSN0Hr B6ZHAkZENrSE7UZzQuKCFiTzx0WWqzULZcITWifs2J dQEhkIaqik5IAKgVLc2VpBbcTBChBAudRl8zgPOqPSVyCZERTw0XwbLsGGDlRTKZWTmkWJSpYLY8NCBt XJLqOGJ0AIF5OIArPVItIqO5CRV5JqV1DABkJuX8TCU0GGIoOpRvDGU3YgtvUYQnDSQ5Dfz2UHviHrqj NjA+AO6iEQo+Ih1Bd5TjggG3bwLvIAoqVCa3WU8LHVLTI8JYZm== Procedure Social History Code Duration Value Status Description Data Source(s ) Smoking 01/22/2021 12:00:00 AM EDT Never Smoker completed Never S moker eCW1 ([facility]) Smoking 08/01/2020 12:00:00 AM EDT Never Smoker completed Never S moker eCW1 ([facility]) Smoking 08/01/2020 12:00:00 AM EDT Never Smoker completed Never S moker eCW1 ([facility]) Smoking 08/01/2020 12:00:00 AM EDT Never Smoker completed Never S moker eCW1 ([facility]) Smoking 06/01/2020 12:00:00 AM EST Never Smoker completed Never S moker eCW1 ([facility]) Smoking 06/01/2020 12:00:00 AM EST Never Smoker completed Never S moker eCW1 ([facility]) Smoking 06/01/2020 12:00:00 AM EST Never Smoker completed Never S moker eCW1 ([facility]) Smoking 06/01/2020 12:00:00 AM EST Never Smoker completed Never S moker eCW1 ([facility]) Smoking 02/12/2020 12:00:00 AM EST Never Smoker completed Never S moker eCW1 ([facility]) Smoking 02/12/2020 12:00:00 AM EST Never Smoker completed Never S moker eCW1 ([facility]) Smoking 02/12/2020 12:00:00 AM EST Never Smoker completed Never S moker eCW1 ([facility]) Smoking 02/12/2020 12:00:00 AM EST Never Smoker completed Never S moker eCW1 ([facility]) Smoking 02/12/2020 12:00:00 AM EST Never Smoker completed Never S moker eCW1 ([facility]) Smoking 01/29/2020 12:00:00 AM EDT Unknown if ever smoked comp leted Unknown if ever smoked [facility] Vital Signs ID Date Data Source UNK Name Value Range Interpretation Code Description Data Source(s) Body weight 219.2 [lb_av] 219.2 [lb_av] eCW1 ([facility]) Heart rate 91 /min 91 /min eCW1 ([facility]) Body weight 99.43 kg 99.43 kg eCW1 ([facility]) Body height 63 [in_i] 63 [in_i] eCW1 ([facility]) Body mass index (BMI) [Ratio] 38.83 kg/m2 38.83 kg/m2 [facility] ([facility]) Respiratory rate 18 /min 18 /min eCW1 ([facility]) Body temperature 98.6 [degF] 98.6 [degF] eCW1 ( [facility]) Systolic blood pressure 126 mm[Hg] 126 mm[Hg] e CW1 ([facility]) Diastolic blood pressure 78 mm[Hg] 78 mm[Hg] eCW1 ([facility]) Body height 62 [in_i] 62 [in_i] MEDENT ([facility] 5'2" Body weight 220.00 [lb_av] 220.00 [lb_av] MEDEN T ([facility] Systolic blood pressure 126 mm[Hg] 126 mm[Hg] M EDENT ([facility] Diastolic blood pressure 80 mm[Hg] 80 mm[Hg] MEDENT ([facility] Heart rate 71 /min 71 /min MED[facility] ([facility] Body mass index (BMI) [Ratio] 40.2 kg/m2 40.2 k g/m2 [facility] ([facility] Systolic blood pressure 112 mm[Hg] 112 mm[Hg] M EDENT ([facility] Body height 62 [in_i] 62 [in_i] MEDENT ([facility] 5'2" Body weight 220.00 [lb_av] 220.00 [lb_av] MEDEN T ([facility] Diastolic blood pressure 70 mm[Hg] 70 mm[Hg] MEDENT ([facility] Heart rate 101 /min 101 /min [facility] ([facility] Body mass index (BMI) [Ratio] 40.2 kg/m2 40.2 k g/m2 [facility] ([facility] Body weight 226.4 [lb_av] 226.4 [lb_av] eCW1 ([facility]) Body height 63 [in_i] 63 [in_i] eCW1 ([facility]) Body mass index (BMI) [Ratio] 40.10 kg/m2 40.10 kg/m2 W1 ([facility]) Heart rate 91 /min 91 /min eCW1 ([facility]) Systolic blood pressure 138 mm[Hg] 138 mm[Hg] e CW1 ([facility]) Diastolic blood pressure 84 mm[Hg] 84 mm[Hg] eCW1 ([facility]) Respiratory rate 18 /min 18 /min eCW1 ([facility]) Body temperature 97.3 [degF] 97.3 [degF] eCW1 ( [facility]) Body weight 226.0 [lb_av] 226.0 [lb_av] eCW1 ([facility]) Body height 63 [in_i] 63 [in_i] eCW1 ([facility]) Body mass index (BMI) [Ratio] 40.03 kg/m2 40.03 kg/m2 eCW1 ([facility]) Heart rate 103 /min 103 /min eCW1 ([facility]) Respiratory rate 18 /min 18 /min eCW1 ([facility]) Body temperature 97.5 [degF] 97.5 [degF] eCW1 ( [facility]) Systolic blood pressure 140 mm[Hg] 140 mm[Hg] e CW1 ([facility]) Diastolic blood pressure 82 mm[Hg] 82 mm[Hg] eCW1 ([facility]) Body weight 218.0 [lb_av] 218.0 [lb_av] eCW1 ([facility]) Systolic blood pressure 128 mm[Hg] 128 mm[Hg] e CW1 ([facility]) Diastolic blood pressure 88 mm[Hg] 88 mm[Hg] eCW1 ([facility]) Heart rate 83 /min 83 /min eCW1 ([facility]) Respiratory rate 18 /min 18 /min eCW1 ([facility]) Body temperature 97.0 [degF] 97.0 [degF] eCW1 ( [facility]) Body height 63 [in_i] 63 [in_i] eCW1 ([facility]) Body mass index (BMI) [Ratio] 38.61 kg/m2 38.61 kg/m2 eCW1 ([facility]) Body height 63 [in_i] 63 [in_i] eCW1 ([facility]) Body weight 219.8 [lb_av] 219.8 [lb_av] eCW1 ([facility]) Body mass index (BMI) [Ratio] 38.93 kg/m2 38.93 kg/m2 eCW1 ([facility]) Respiratory rate 18 /min 18 /min eCW1 ([facility]) Body temperature 98.1 [degF] 98.1 [degF] eCW1 ( [facility]) Systolic blood pressure 122 mm[Hg] 122 mm[Hg] e CW1 ([facility]) Diastolic blood pressure 74 mm[Hg] 74 mm[Hg] eCW1 ([facility]) Heart rate 100 /min 100 /min eCW1 ([facility]) ID Date Data Source [id number] 02/09/2020 07:52:47 AM [facility] Name Value Range Interpretation Code Description Data Source(s) WEIGHT RECORDED 216.1 lb 216.1 lb [facility] Body height Measured 62 in 62 in [facility] TRANSFER FROM [facility] Patient Treatment Plan of Care Planned Activity Planned Date Details Description Data Source (s) tramadol hydrochloride 50 MG Oral Tablet 06/09/2020 12:00:00 AM EST eCW1 ([facility]) Cyclobenzaprine hydrochloride 10 MG Oral Tablet 06/01/2020 12:00:00 AM EST eCW1 ([facility]) Prednisone 20 MG Oral Tablet 06/01/2020 12:00:00 AM EST eCW1 ([facility]) Cyclobenzaprine hydrochloride 10 MG Oral Tablet 06/01/2020 12:00:00 AM EST eCW1 ([facility]) Prednisone 20 MG Oral Tablet 06/01/2020 12:00:00 AM EST eCW1 ([facility]) Cyclobenzaprine hydrochloride 10 MG Oral Tablet 06/01/2020 12:00:00 AM EST eCW1 ([facility]) Prednisone 20 MG Oral Tablet 06/01/2020 12:00:00 AM EST eCW1 ([facility]) Cyclobenzaprine hydrochloride 10 MG Oral Tablet 06/01/2020 12:00:00 AM EST eCW1 ([facility]) Prednisone 20 MG Oral Tablet 06/01/2020 12:00:00 AM EST eCW1 ([facility]) Prednisone 20 MG Oral Tablet 02/01/2020 12:00:00 AM [facility] Levofloxacin 500 MG Oral Tablet 01/31/2020 12:00:00 AM [facility] buspirone hydrochloride 7.5 MG Oral Tablet 01/31/2020 12:00:00 AM E [facility] fentaNYL (SUBLIMAZE) (PF) injection 25 mcg 01/30/2020 07:55:46 PM E [facility] Albuterol 0.83 MG/ML Inhalant Solution 01/30/2020 07:55:46 PM [facility] Bisacodyl 10 MG Rectal Suppository 01/30/2020 12:00:00 AM [facility] sennosides, MCFP 8.6 MG Oral Tablet 01/30/2020 12:00:00 AM [facility] buspirone hydrochloride 7.5 MG Oral Tablet 01/29/2020 10:06:05 PM E [facility] HYDROcodone-acetaminophen (LORTAB) 5-325 MG per tablet 1 tablet 01/29/2020 08:43:04 PM [facility] Acetaminophen 325 MG Oral Tablet 01/29/2020 06:58:08 PM [facility] buspirone hydrochloride 7.5 MG Oral Tablet [facility]
[2021-02-02] MEDS ORDERED: propofoL 200 MG/20 ML VIAL As Ordered ONE (08:07)
[2021-02-02] MEDS ORDERED: ACETAMINOPHEN 1000MG 100ML IV BTL (OFIRMEV) (J0131 PER 10MG) As Ordered ONE (08:07)
[2021-02-02] MEDS ORDERED: LIDOCAINE 2% 100MG/5ML SDV (FOR ANES.) As Ordered ONE (08:07)
[2021-02-02] MEDS ORDERED: fentaNYL 100 MCG/2 ML INJECTION (J3010) As Ordered ONE (08:08)
[2021-02-02] MEDS ORDERED: MIDAZOLAM INJ 2MG/2ML VIAL (J2250 PER 1MG) As Ordered ONE (08:08)
[2021-02-02] MEDS ORDERED: dexameTHASONE 4 MG/ML 1ML VIAL (J1100 PER 1MG) As Ordered ONE (08:15)
[2021-02-02] MEDS ORDERED: BUPIVACAINE HCL 0.5% 30 ML VIAL As Ordered ONE (08:15)
[2021-02-02] MEDS ORDERED: LIDOCAINE 1% MDV 20ML VIAL As Ordered ONE (08:15)
[2021-02-02 08:35] LABS: BLOOD UREA NITROGEN 16 MG/DL (7-18); CALCIUM LEVEL 9.3 MG/DL (8.8-10.2); CARBON DIOXIDE LEVEL 30 MEQ/L (21-32); CHLORIDE LEVEL 110 MEQ/L (98-107); CREATININE FOR GFR 0.89 MG/DL (0.55-1.30); GLOMERULAR FILTRATION RATE > 60.0 (>45); GLUCOSE, FASTING 112 MG/DL (70-100); POTASSIUM SERUM 4.2 MEQ/L (3.5-5.1); SODIUM LEVEL 143 MEQ/L (136-145)
[2021-02-02] MEDS ORDERED: HYDR-3713 PO (09:23)
[2021-02-02 10:00] VITALS: BP 154/80
--- NOTE | 2021-02-02 10:48 | RO ---
OPERATIVE NOTE DATE OF OPERATION: 02/02/2021 PREOPERATIVE DIAGNOSIS: Left foot hallux limitus. POSTOPERATIVE DIAGNOSIS: Left foot hallux limitus. PROCEDURE: Left foot first metatarsophalangeal joint cheilectomy. SURGEON: Hari Leyva DPM STEREO OPERATOR: ANESTHESIA: Monitored anesthesia care. PREOP INJECTION: 20 mL of a 1:1 mixture of 1% lidocaine plain, 1/2% Marcaine pain. ESTIMATED BLOOD LOSS: Minimal. MATERIALS: 3-0 and 4-0 Vicryl, 4-0 nylon INJECTABLES: None. COMPLICATION: None. CONDITION: Stable. INDICATIONS: Janet Mullins is a 70-year-old female who presents with painful left big toe joint who presents today for surgical correction. The patient's side and site were identified and marked in the preoperative area. Consent was reviewed and obtained. The risks, complications and alternatives to the procedure were explained to the patient in detail and all questions were answered. DESCRIPTION OF PROCEDURE: The patient was brought to the operating room and placed on the operating room table in supine position. Monitored anesthesia care was delivered by the anesthesia team. A preop injection of 20 mL of a 1:1 mixture of 1% Lidocaine plain, 1/2% Marcaine plain were injected into the left foot. The left foot was prepped and draped in normal sterile fashion. A tourniquet was applied to the left ankle and inflated at 250 mmHg. The left foot was prepped and draped in normal sterile fashion. A dorsal incision was drawn out at the first metatarsal and carried through with a #15 blade. Dissection was carried down to the first metatarsophalangeal joint capsule. A linear capsulotomy was performed, exposing the metatarsal head. A dorsal prominence was noted and this was resected using a sagittal saw and smoothed with rasp. The site was irrigated with normal saline. Capsular repair was performed with 3-0 Vicryl, subcutaneous closure with 4-0 Vicryl and skin closure with 4-0 nylon. Sterile dressings were applied. The tourniquet was deflated. The patient was brought to the PACU with vital signs stable, neurovascular status intact. She will be weightbearing as tolerated and will follow up in the office in two days. ANNA
== END 2021-02-02 10:14 | disposition home or self-care (01) ==
LOC: M SDC 07:37
PROVIDERS: ATTEND Podiatrist Foot & Ankle Surgery
DX: M20.22 Hallux rigidus, left foot (principal); I10 Essential (primary) hypertension; E78.5 Hyperlipidemia, unspecified; F41.9 Anxiety disorder, unspecified; K44.9 Diaphragmatic hernia without obstruction or gangrene; K21.9 Gastro-esophageal reflux disease without esophagitis; J45.909 Unspecified asthma, uncomplicated; Z79.899 Other long term (current) drug therapy; Z79.82 Long term (current) use of aspirin; G25.81 Restless legs syndrome; Z88.0 Allergy status to penicillin; Z88.2 Allergy status to sulfonamides; Z88.8 Allergy status to other drugs, medicaments and biological substances
CPT/HCPCS: 28289; 36415; 80048; 88300; J0131; J2250; J3010

== ENCOUNTER → 2021-09-15 | Outpatient (CLI) | payer MEDICARE, OTHER ==
[~2021-09-15] MED LIST changes: -CLINDAMYCIN 600 MG in IV 1 EA IV ONE; +HYDR-3713 PO; -LR 1,000 ML IV ONE; -MONT10TA10; +MONT10TA97
[2021-09-15 17:19] LABS: BASO # 0.1 10^3/uL (0.0-0.2); BASO % 0.7 % (0.0-1.0); EOS # 0.1 10^3/uL (0.0-0.5); EOS % 1.7 % (0.0-3.0); HEMOGLOBIN 16.1 g/dl (12.0-15.5); LYMPH % 29.1 % (24.0-44.0); MEAN CORPUSCULAR HEMOGLOBIN 31.9 pg (27.0-33.0); MEAN CORPUSCULAR HGB CONC 33.5 g/dl (32.0-36.5); MONO # 0.5 10^3/uL (0.0-0.8); MONO % 7.7 % (2.0-8.0); NEUTROPHILS # 4.2 10^3/uL (1.5-8.5); NEUTROPHILS % 60.5 % (36.0-66.0); PLATELET COUNT, AUTOMATED 287 10^3/uL (150-450); RED BLOOD COUNT 5.05 10^6/uL (4.00-5.40)
[2021-09-15 17:35] LABS: HEMOGLOBIN A1c 5.8 %
[2021-09-15 17:57] LABS: ALBUMIN 4.1 GM/DL (3.2-5.2); BILIRUBIN,TOTAL 0.5 MG/DL (0.2-1.0); CALCIUM LEVEL 9.5 MG/DL (8.8-10.2); CREATININE FOR GFR 1.01 MG/DL (0.55-1.30); FREE T4 1.23 NG/DL (0.76-1.46); GLOMERULAR FILTRATION RATE 57.9 (>45); POTASSIUM SERUM 4.9 MEQ/L (3.5-5.1); THYROID STIMULATING HORMONE 1.49 uIU/ML (0.358-3.740); TOTAL PROTEIN 7.6 GM/DL (6.4-8.2)
[2021-09-15 18:03] LABS: PROTHROMBIN TIME 13.6 SECONDS (12.7-14.5)
[2021-09-15 18:04] LABS: PARTIAL THROMBOPLASTIN TIME 32.8 SECONDS (25.9-37.0)
== END ==
LOC: M PLALAB 15:58
PROVIDERS: ATTEND Family Medicine
DX: Z01.818 Encounter for other preprocedural examination (principal); M17.11 Unilateral primary osteoarthritis, right knee; M25.561 Pain in right knee; I10 Essential (primary) hypertension; Z79.899 Other long term (current) drug therapy

== ENCOUNTER → 2021-09-15 | Outpatient (CLI) | payer MEDICARE, OTHER ==
[2021-09-15 15:45] LABS: BASO % 0.7 % (0.0-1.0); EOS # 0.2 10^3/uL (0.0-0.5); EOS % 2.4 % (0.0-3.0); HEMATOCRIT 46.6 % (36.0-47.0); HEMOGLOBIN 15.6 g/dl (12.0-15.5); LYMPH # 1.7 10^3/uL (1.5-5.0); LYMPH % 27.5 % (24.0-44.0); MEAN CORPUSCULAR HGB CONC 33.5 g/dl (32.0-36.5); MEAN CORPUSCULAR VOLUME 95.5 fl (80.0-96.0); MONO # 0.5 10^3/uL (0.0-0.8); MONO % 8.8 % (2.0-8.0); NEUTROPHILS # 3.7 10^3/uL (1.5-8.5); NEUTROPHILS % 60.4 % (36.0-66.0); PLATELET COUNT, AUTOMATED 273 10^3/uL (150-450); RED BLOOD COUNT 4.88 10^6/uL (4.00-5.40); WHITE BLOOD COUNT 6.1 10^3/uL (4.0-10.0)
[2021-09-15 16:01] LABS: PERCENT SATURATION 33.2 % (13.2-45.0)
== END ==
LOC: M PLALAB 13:11
PROVIDERS: ATTEND Orthopaedic Surgery
DX: Z01.818 Encounter for other preprocedural examination (principal); M17.11 Unilateral primary osteoarthritis, right knee; M25.561 Pain in right knee

== ENCOUNTER → 2021-09-30 | Outpatient (REF) | payer MEDICARE, OTHER | LOC: M WUC 19:59 | PROVIDERS: ATTEND Physician Assistant | DX: N39.0 Urinary tract infection, site not specified (principal) ==

== ENCOUNTER → 2021-10-12 | Outpatient (CLI) | payer MEDICARE | LOC: M LABSMTC 09:35 | PROVIDERS: ATTEND Orthopaedic Surgery | DX: Z20.822 Contact with and (suspected) exposure to COVID-19 (principal) ==

== ENCOUNTER → 2022-01-25 | Outpatient (CLI) | payer MEDICARE, OTHER ==
[~2022-01-25] MED LIST changes: -BENI40TA26 PO; +OLME40TA56 PO
[2022-01-25 14:28] LABS: ALBUMIN 3.7 GM/DL (3.2-5.2); ALT/SGPT 28 U/L (12-78); BILIRUBIN,TOTAL 0.4 MG/DL (0.2-1.0); BLOOD UREA NITROGEN 16 MG/DL (7-18); CALCIUM LEVEL 9.3 MG/DL (8.8-10.2); CARBON DIOXIDE LEVEL 27 MEQ/L (21-32); CHLORIDE LEVEL 106 MEQ/L (98-107); CHOLESTEROL LEVEL 201 MG/DL (<200); CHOLESTEROL RISK RATIO 3.465 (<5); CREATININE FOR GFR 0.78 MG/DL (0.55-1.30); GLOMERULAR FILTRATION RATE > 60.0 (>45); GLUCOSE, FASTING 93 MG/DL (70-100); HDL CHOLESTEROL 58 MG/DL (>40); LDL CHOLESTEROL 109 MG/DL (<100); NON-HDL-C 143 MG/DL; POTASSIUM SERUM 4.6 MEQ/L (3.5-5.1); SODIUM LEVEL 139 MEQ/L (136-145); TRIGLYCERIDES LEVEL 170 MG/DL (<150)
[2022-01-25 14:31] LABS: HEMOGLOBIN A1c 5.6 %
== END ==
LOC: M PLALAB 11:25
PROVIDERS: ATTEND Family Medicine
DX: E78.5 Hyperlipidemia, unspecified (principal); I10 Essential (primary) hypertension; E55.9 Vitamin D deficiency, unspecified; Z13.1 Encounter for screening for diabetes mellitus; E03.9 Hypothyroidism, unspecified; Z79.899 Other long term (current) drug therapy

== ENCOUNTER 2022-07-17 14:59 | Observation (INO) | payer MEDICARE, OTHER ==
[~2022-07-17] VITALS: Ht 157.5 cm; Wt 95.5 kg
[~2022-07-17 14:59] MED LIST changes: +MONT-5 PO; -SING10TA32 PO
[2022-07-17] MEDS: LEVALBUTEROL 1.25MG 0.5ML CONCENTRATE NEB INH SCH ×3 (15:30→16:00)
[2022-07-17 15:47] LABS: BASO # 0.1 10^3/uL (0.0-0.2); BASO % 0.5 % (0.0-1.0); EOS % 0.3 % (0.0-3.0); HEMATOCRIT 46.1 % (36.0-47.0); HEMOGLOBIN 15.1 g/dl (12.0-15.5); LYMPH # 1.9 10^3/uL (1.5-5.0); LYMPH % 13.3 % (24.0-44.0); MEAN CORPUSCULAR HEMOGLOBIN 31.4 pg (27.0-33.0); MEAN CORPUSCULAR HGB CONC 32.8 g/dl (32.0-36.5); MEAN CORPUSCULAR VOLUME 95.8 fl (80.0-96.0); MONO # 0.7 10^3/uL (0.0-0.8); MONO % 4.8 % (2.0-8.0); NEUTROPHILS # 11.1 10^3/uL (1.5-8.5); NEUTROPHILS % 80.1 % (36.0-66.0); PLATELET COUNT, AUTOMATED 330 10^3/uL (150-450); RED BLOOD COUNT 4.81 10^6/uL (4.00-5.40); WHITE BLOOD COUNT 13.9 10^3/uL (4.0-10.0)
[2022-07-17] MEDS ORDERED: ALBUTEROL SULFATE 2.5MG/0.5ML INH NEB SOLN INH ONE ×3 (15:50→17:25)
[2022-07-17 15:59] LABS: INR 0.9; PROTHROMBIN TIME 12.3 SECONDS (12.5-14.5)
[2022-07-17 16:14] LABS: ABG BASE EXCESS 0.8 (-2.0-2.0); ABG HCO3 24.9 MEQ/L (22.0-26.0); ABG O2 SATURATION 97.6 % (95.0-99.0); ABG PARTIAL PRESSURE CO2 38.4 mmHg (35.0-45.0); ABG PARTIAL PRESSURE O2 91.5 mmHg (75.0-100.0); ABG STANDARD HCO3 25.2 MEQ/L (22.0-26.0); ABG TOTAL CO2 26.1 MEQ/L (23.0-31.0)
[2022-07-17 16:19] LABS: CK-MB VALUE MASS 1.3 NG/ML (<3.6)
[2022-07-17 16:21] LABS: CPK CREATINE PHOSPHOKINASE 82 U/L (34-145); MB/CK RELATIVE INDEX 1.58 (< OR =4)
[2022-07-17 16:22] LABS: ALBUMIN 3.8 G/DL (3.2-5.2); ALKALINE PHOSPHATASE 76 U/L (46-116); ALT/SGPT 20 U/L (7.0-40); AST/SGOT 11 U/L (<34); BILIRUBIN,DIRECT 0.2 MG/DL (<0.4); BILIRUBIN,TOTAL 0.5 MG/DL (0.3-1.2); BLOOD UREA NITROGEN 14 MG/DL (9-23); CALCIUM LEVEL 9.4 MG/DL (8.3-10.6); CARBON DIOXIDE LEVEL 26 MMOL/L (20-31); CHLORIDE LEVEL 105 MMOL/L (98-107); CREATININE FOR GFR 0.72 MG/DL (0.55-1.30); GLOMERULAR FILTRATION RATE > 60.0 (>39); GLUCOSE, FASTING 117 MG/DL (74-106); POTASSIUM SERUM 4.6 MMOL/L (3.5-5.1); SODIUM LEVEL 140 MMOL/L (136-145); TOTAL PROTEIN 6.9 G/DL (5.7-8.2)
[2022-07-17 16:23] LABS: THYROXINE (T4) 13.7 UG/DL (4.5-10.9)
[2022-07-17 16:24] LABS: THYROID STIMULATING HORMONE 1.846 uIU/ML (0.55-4.78)
[2022-07-17] MEDS ORDERED: MAG SULF 1GM/100ML (MAG RUN) 1 GM in IV 1 EA IV ONE ×2 (17:20→19:00)
[2022-07-17] MEDS ORDERED: MOM 30ML SUSPENSION UDC PO PRN (17:55)
[2022-07-17] MEDS ORDERED: ACETAMINOPHEN TAB 650MG DOSE (2X325MG) PO PRN (17:55)
[2022-07-17] MEDS ORDERED: GABA-282 PO (18:18)
[2022-07-17] MEDS ORDERED: ARNU1INH INH (18:18)
[2022-07-17] MEDS ORDERED: PRED20TA PO (18:25)
[2022-07-17] MEDS ORDERED: CARB-113 PO (18:25)
[2022-07-17] MEDS ORDERED: VIBR100C PO (18:26)
[2022-07-17] MEDS ORDERED: ALBU6.7H6 INH (18:27)
[2022-07-17] MEDS ORDERED: HOME MED LIST COMPLETE! XX SCH (18:30)
[2022-07-17] MEDS: BUDESONIDE 180MCG INHALER (PULMICORT FLEXHALER) INH SCH (20:00)
[2022-07-17] MEDS ORDERED: NS 500 ML IV ONE ×2 (20:00→21:30)
[2022-07-17] MEDS ORDERED: OLMESARTAN MEDOXOMIL 20 MG TAB (BENICAR) PO SCH (21:00)
[2022-07-17] MEDS ORDERED: FEXOFENADINE 60MG TAB PO SCH (21:00)
[2022-07-17] MEDS: ALBUTEROL SULFATE 2.5MG/0.5ML INH NEB SOLN NEB SCH ×2 (21:00→23:31)
[2022-07-17] MEDS ORDERED: GABAPENTIN 300 MG CAP PO SCH (21:00)
[2022-07-17] MEDS ORDERED: PANTOPRAZOLE 40MG TAB (PROTONIX) PO SCH (21:00)
[2022-07-17] MEDS ORDERED: EZETIMIBE 10MG TABLET (ZETIA) PO SCH (21:00)
[2022-07-17] MEDS ORDERED: MULTIVITAMINS/MINERALS THERAP 1 TAB PO SCH (21:00)
[2022-07-17] MEDS: DOCUSATE SODIUM 100MG CAPSULE PO SCH (21:00)
[2022-07-17] MEDS ORDERED: ASPIRIN 81MG ENTERIC TABLET PO SCH (21:00)
[2022-07-17] MEDS ORDERED: MONTELUKAST 10 MG TAB PO SCH (21:00)
[2022-07-17] MEDS ORDERED: PRIMIDONE 50MG TAB PO SCH (21:00)
[2022-07-17] MEDS ORDERED: busPIRone 5 MG TAB PO SCH (21:00)
[2022-07-17 21:15] VITALS: BP 148/77
[2022-07-17] MEDS: SINEMET 25-100 MG TAB PO SCH (21:44)
[2022-07-17 21:49] VITALS: BP 136/76
[2022-07-17 22:36] VITALS: BP 136/74
[2022-07-18] MEDS: methylPREDNISolone 125MG 2ML VIAL IV SCH ×2 (01:23→08:44)
[2022-07-18 02:42] VITALS: BP 118/65
[2022-07-18] MEDS: ALBUTEROL SULFATE 2.5MG/0.5ML INH NEB SOLN NEB SCH ×3 (03:39→11:22)
[2022-07-18] MEDS ORDERED: guaiFENesin SYRUP 200MG 10ML UDC PO PRN (03:45)
[2022-07-18 04:47] LABS: HEMATOCRIT 40.2 % (36.0-47.0); HEMOGLOBIN 13.6 g/dl (12.0-15.5); MEAN CORPUSCULAR HEMOGLOBIN 32.1 pg (27.0-33.0); MEAN CORPUSCULAR HGB CONC 33.8 g/dl (32.0-36.5); MEAN CORPUSCULAR VOLUME 94.8 fl (80.0-96.0); PLATELET COUNT, AUTOMATED 291 10^3/uL (150-450); RED BLOOD COUNT 4.24 10^6/uL (4.00-5.40); WHITE BLOOD COUNT 13.1 10^3/uL (4.0-10.0)
[2022-07-18 05:12] LABS: BLOOD UREA NITROGEN 11 MG/DL (9-23); CALCIUM LEVEL 9.1 MG/DL (8.3-10.6); CARBON DIOXIDE LEVEL 27 MMOL/L (20-31); CHLORIDE LEVEL 106 MMOL/L (98-107); CREATININE FOR GFR 0.62 MG/DL (0.55-1.30); GLOMERULAR FILTRATION RATE > 60.0 (>39); GLUCOSE, FASTING 135 MG/DL (74-106); POTASSIUM SERUM 4.3 MMOL/L (3.5-5.1); SODIUM LEVEL 140 MMOL/L (136-145)
[2022-07-18 05:21] VITALS: BP 140/75
[2022-07-18] MEDS: BUDESONIDE 180MCG INHALER (PULMICORT FLEXHALER) INH SCH (07:48)
[2022-07-18] MEDS: SINEMET 25-100 MG TAB PO SCH (08:44)
[2022-07-18] MEDS ORDERED: predniSONE 10MG TAB PO SCH (09:00)
[2022-07-18] MEDS: DOCUSATE SODIUM 100MG CAPSULE PO SCH (09:00)
[2022-07-18] MEDS ORDERED: guaiFENesin/CODEINE SYRUP 5 ML UDC PO PRN (09:05)
[2022-07-18] MEDS ORDERED: GUAI1SOL7 PO (11:07)
[2022-07-18] MEDS ORDERED: ALB2.5NEB NEB (11:07)
[2022-07-18] MEDS ORDERED: PRED10TA2 PO (11:07)
[2022-07-18] MEDS ORDERED: GABAPENTIN 300 MG CAP PO SCH (18:00)
[2022-07-18] MEDS ORDERED: ENOXAPARIN 40MG/0.4ML SYRINGE (J1650 PER 10MG) SC SCH (21:00)
[2022-07-19] MEDS ORDERED: predniSONE 10MG TAB PO SCH (09:00)
== END 2022-07-18 14:15 | disposition home or self-care (01) ==
LOC: M ED 14:59 → M ED INP 17:53 → M MS5PR 19:30
PROVIDERS: ADMIT Student in an Organized Health Care Education/Training Program; ATTEND Student in an Organized Health Care Education/Training Program
DX: J45.31 Mild persistent asthma with (acute) exacerbation (principal); B34.8 Other viral infections of unspecified site; D72.829 Elevated white blood cell count, unspecified; E87.29 Other acidosis; I10 Essential (primary) hypertension; G25.0 Essential tremor; E78.5 Hyperlipidemia, unspecified; G20 Parkinson's disease; E03.9 Hypothyroidism, unspecified; E66.9 Obesity, unspecified; K21.9 Gastro-esophageal reflux disease without esophagitis; G89.29 Other chronic pain; F41.9 Anxiety disorder, unspecified; Z79.82 Long term (current) use of aspirin; Z79.52 Long term (current) use of systemic steroids; Z79.899 Other long term (current) drug therapy; Z88.0 Allergy status to penicillin; Z88.2 Allergy status to sulfonamides; Z88.8 Allergy status to other drugs, medicaments and biological substances
CPT/HCPCS: 36415; 36600; 71045; 80048; 80076; 82550; 82553; 82803; 83605; 83880; 84145; 84436; 84443; 84484; 85025; 85027; 85610; 87040; 87428; 87486; 87581; 87633; 87798; 93005; 94640; 94760; 96361; 96374; 96375; 96376; 99284; G0378; J1100; J2930; J3475

== ENCOUNTER → 2022-08-22 | Outpatient (CLI) | payer MEDICARE, OTHER ==
[~2022-08-22] MED LIST changes: +ALB2.5NEB NEB; +ALBU6.7H6 INH; +ARNU1INH INH; +CARB-113 PO; +GUAI1SOL7 PO; +PRED20TA PO; +VIBR100C PO
== END ==
LOC: M PLALAB 11:45
PROVIDERS: ATTEND Student in an Organized Health Care Education/Training Program
DX: G25.81 Restless legs syndrome (principal)

== ENCOUNTER → 2022-09-12 | Outpatient (CLI) | payer MEDICARE, OTHER | LOC: M WHC 11:15 | PROVIDERS: ATTEND Family Medicine | DX: Z13.820 Encounter for screening for osteoporosis (principal); M85.851 Other specified disorders of bone density and structure, right thigh; M85.852 Other specified disorders of bone density and structure, left thigh ==

== ENCOUNTER 2022-12-05 14:06 | Emergency (ER) | payer MEDICARE, OTHER ==
[~2022-12-05] VITALS: Ht 157.5 cm; Wt 98.3 kg
[2022-12-05 15:32] LABS: BASO # 0.1 10^3/uL (0.0-0.2); BASO % 0.4 % (0.0-1.0); EOS # 0.3 10^3/uL (0.0-0.5); EOS % 2.2 % (0.0-3.0); HEMATOCRIT 43.7 % (36.0-47.0); HEMOGLOBIN 14.6 g/dl (12.0-15.5); LYMPH # 3.3 10^3/uL (1.5-5.0); LYMPH % 27.1 % (24.0-44.0); MEAN CORPUSCULAR HEMOGLOBIN 32.1 pg (27.0-33.0); MEAN CORPUSCULAR HGB CONC 33.4 g/dl (32.0-36.5); MONO # 0.8 10^3/uL (0.0-0.8); NEUTROPHILS # 7.5 10^3/uL (1.5-8.5); NEUTROPHILS % 62.8 % (36.0-66.0); PLATELET COUNT, AUTOMATED 319 10^3/uL (150-450); RED BLOOD COUNT 4.55 10^6/uL (4.00-5.40)
[2022-12-05 15:55] LABS: BLOOD UREA NITROGEN 15 MG/DL (9-23); CALCIUM LEVEL 9.5 MG/DL (8.3-10.6); CARBON DIOXIDE LEVEL 28 MMOL/L (20-31); CHLORIDE LEVEL 103 MMOL/L (98-107); CREATININE FOR GFR 0.72 MG/DL (0.55-1.30); GLOMERULAR FILTRATION RATE > 60.0 (>39); GLUCOSE, FASTING 91 MG/DL (74-106); POTASSIUM SERUM 4.6 MMOL/L (3.5-5.1); SODIUM LEVEL 139 MMOL/L (136-145)
[2022-12-05 16:02] LABS: CPK CREATINE PHOSPHOKINASE 94 U/L (34-145); MB/CK RELATIVE INDEX 2.12 (< OR =4)
[2022-12-05] MEDS ORDERED: ESOM40CA35 (16:28)
[2022-12-05] MEDS ORDERED: OMEG10002 PO (16:28)
[2022-12-05] MEDS ORDERED: ISOVUE-370 76% 100ML VIAL As Ordered ONE (16:49)
[2022-12-05] MEDS ORDERED: SUCRALFATE SUSP 1GM/10ML UD PO ONE (16:55)
[2022-12-05 17:10] LABS: CK-MB VALUE MASS 1.1 NG/ML (<3.6)
[2022-12-05 17:11] LABS: LIPASE 33 U/L (12-53)
[2022-12-05 17:13] LABS: ALBUMIN 3.9 G/DL (3.2-5.2); ALKALINE PHOSPHATASE 72 U/L (46-116); ALT/SGPT < 9 U/L (7.0-40); AST/SGOT 31 U/L (<34); BILIRUBIN,DIRECT < 0.1 MG/DL (<0.4); BILIRUBIN,TOTAL 0.4 MG/DL (0.3-1.2); TOTAL PROTEIN 6.9 G/DL (5.7-8.2)
[2022-12-05 17:16] LABS: THYROID STIMULATING HORMONE 1.719 uIU/ML (0.55-4.78)
[2022-12-05 17:16] LABS: CPK CREATINE PHOSPHOKINASE 77 U/L (34-145); MB/CK RELATIVE INDEX 1.42 (< OR =4)
[2022-12-05] MEDS ORDERED: OLMESARTAN MEDOXOMIL 20 MG TAB (BENICAR) PO STA (18:09)
[2022-12-05 18:33] VITALS: BP 182/87
[2022-12-05 19:00] VITALS: BP 133/69; TEMP 98.3; O2SAT 95
== END 2022-12-05 19:22 | disposition home or self-care (01) ==
LOC: M ED 14:06
DX: R07.9 Chest pain, unspecified (principal); I44.4 Left anterior fascicular block; E78.5 Hyperlipidemia, unspecified; I10 Essential (primary) hypertension; K21.9 Gastro-esophageal reflux disease without esophagitis; J45.909 Unspecified asthma, uncomplicated; F10.10 Alcohol abuse, uncomplicated; Z88.0 Allergy status to penicillin; Z88.2 Allergy status to sulfonamides; Z88.8 Allergy status to other drugs, medicaments and biological substances; Z79.52 Long term (current) use of systemic steroids; Z79.810 Long term (current) use of selective estrogen receptor modulators (SERMs); Z79.899 Other long term (current) drug therapy
CPT/HCPCS: 36415; 71045; 71275; 80048; 80076; 82550; 82553; 83690; 83880; 84443; 84484; 85025; 93005; 93041; 94760; 99285; Q9967

== ENCOUNTER → 2022-12-28 | Outpatient (CLI) | payer MEDICARE, OTHER ==
[~2022-12-28] MED LIST changes: +EZET10TA58 PO; +OMEG10002 PO; -ZETI10TA16 PO
[2022-12-28 18:31] LABS: ALKALINE PHOSPHATASE 56 U/L (46-116); ALT/SGPT < 9 U/L (7.0-40); AST/SGOT 31 U/L (<34); BILIRUBIN,TOTAL 0.6 MG/DL (0.3-1.2); BLOOD UREA NITROGEN 16 MG/DL (9-23); CALCIUM LEVEL 9.2 MG/DL (8.3-10.6); CARBON DIOXIDE LEVEL 28 MMOL/L (20-31); CHLORIDE LEVEL 105 MMOL/L (98-107); CHOLESTEROL LEVEL 200 MG/DL (<200); CHOLESTEROL RISK RATIO 3.02 (<5); CREATININE FOR GFR 0.81 MG/DL (0.55-1.30); GLOMERULAR FILTRATION RATE > 60.0 (>39); GLUCOSE, FASTING 81 MG/DL (74-106); HDL CHOLESTEROL 66.2 MG/DL (>40); LDL CHOLESTEROL 114.2 MG/DL (<100); MAGNESIUM LEVEL 2.1 MG/DL (1.8-2.4); NON-HDL-C 133.8 MG/DL; POTASSIUM SERUM 4.8 MMOL/L (3.5-5.1); SODIUM LEVEL 140 MMOL/L (136-145); TOTAL PROTEIN 6.7 G/DL (5.7-8.2); TRIGLYCERIDES LEVEL 98 MG/DL (<150)
[2022-12-28 18:33] LABS: TOTAL 25(OH) VITAMIN D 67.6 NG/ML (20.0-100.0)
[2022-12-28 18:59] LABS: HEMATOCRIT 43.2 % (36.0-47.0); HEMOGLOBIN 14.3 g/dl (12.0-15.5); MEAN CORPUSCULAR HEMOGLOBIN 31.9 pg (27.0-33.0); MEAN CORPUSCULAR HGB CONC 33.1 g/dl (32.0-36.5); MEAN CORPUSCULAR VOLUME 96.4 fl (80.0-96.0); PLATELET COUNT, AUTOMATED 291 10^3/uL (150-450); RED BLOOD COUNT 4.48 10^6/uL (4.00-5.40); WHITE BLOOD COUNT 7.2 10^3/uL (4.0-10.0)
[2022-12-28 19:35] LABS: HEMOGLOBIN A1c 5.2 % (4.0-6.0)
== END ==
LOC: M PLALAB 15:00
PROVIDERS: ATTEND Family Medicine
DX: E03.9 Hypothyroidism, unspecified (principal); Z13.1 Encounter for screening for diabetes mellitus; I10 Essential (primary) hypertension; E78.5 Hyperlipidemia, unspecified; F41.1 Generalized anxiety disorder; E55.9 Vitamin D deficiency, unspecified; D50.8 Other iron deficiency anemias; G25.81 Restless legs syndrome; Z79.899 Other long term (current) drug therapy

== ENCOUNTER → 2023-03-12 | Outpatient (REF) | payer MEDICARE, OTHER | LOC: M LAB REF 19:59 | PROVIDERS: ATTEND Nurse Practitioner Family | DX: R30.0 Dysuria (principal) ==

== ENCOUNTER → 2023-12-28 | Outpatient (CLI) | payer MEDICARE, OTHER ==
[~2023-12-28] MED LIST changes: +ESOM1CAP20 PO; -ESOM1CAP5 PO
[2023-12-28 15:14] LABS: HEMATOCRIT 43.2 % (36.0-47.0); HEMOGLOBIN 14.4 g/dl (12.0-15.5); MEAN CORPUSCULAR HEMOGLOBIN 32.3 pg (27.0-33.0); MEAN CORPUSCULAR HGB CONC 33.3 g/dl (32.0-36.5); MEAN CORPUSCULAR VOLUME 96.9 fl (80.0-96.0); PLATELET COUNT, AUTOMATED 269 10^3/uL (150-450); RED BLOOD COUNT 4.46 10^6/uL (4.00-5.40); WHITE BLOOD COUNT 6.6 10^3/uL (4.0-10.0)
[2023-12-28 15:38] LABS: ALBUMIN 3.8 G/DL (3.2-5.2); ALKALINE PHOSPHATASE 70 U/L (46-116); ALT/SGPT 23 U/L (7.0-40); AST/SGOT 19 U/L (<34); BILIRUBIN,TOTAL 0.5 MG/DL (0.3-1.2); BLOOD UREA NITROGEN 12 MG/DL (9-23); CALCIUM LEVEL 9.7 MG/DL (8.3-10.6); CARBON DIOXIDE LEVEL 30 MMOL/L (20-31); CHLORIDE LEVEL 110 MMOL/L (98-107); CHOLESTEROL LEVEL 233 MG/DL (<200); CHOLESTEROL RISK RATIO 4.04 (<5); CREATININE FOR GFR 0.81 MG/DL (0.55-1.30); GLOMERULAR FILTRATION RATE > 60.0 (>39); GLUCOSE, FASTING 98 MG/DL (74-106); HDL CHOLESTEROL 57.6 MG/DL (>40); LDL CHOLESTEROL 145.2 MG/DL (<100); NON-HDL-C 175.4 MG/DL; POTASSIUM SERUM 4.7 MMOL/L (3.5-5.1); SODIUM LEVEL 139 MMOL/L (136-145); TOTAL PROTEIN 6.6 G/DL (5.7-8.2); TRIGLYCERIDES LEVEL 151 MG/DL (<150)
[2023-12-28 15:39] LABS: THYROID STIMULATING HORMONE 1.654 uIU/ML (0.55-4.78)
[2023-12-28 15:40] LABS: FERRITIN 150.2 NG/ML (7.3-270.7); TOTAL 25(OH) VITAMIN D 47.2 NG/ML (20.0-100.0)
[2023-12-28 15:48] LABS: HEMOGLOBIN A1c 5.6 % (4.0-6.0)
== END ==
LOC: M PLALAB 12:31
PROVIDERS: ATTEND Family Medicine
DX: J45.30 Mild persistent asthma, uncomplicated (principal); E78.00 Pure hypercholesterolemia, unspecified; D50.9 Iron deficiency anemia, unspecified

== ENCOUNTER → 2024-08-01 | Outpatient (CLI) | payer MEDICARE, OTHER ==
[~2024-08-01] MED LIST changes: -CYCL5TAB PO; +CYCL5TAB4 PO; +GABA-1172 PO; -GABA-282 PO
== END ==
LOC: M RAD 15:18
PROVIDERS: ATTEND Family Medicine
DX: Z53.9 Procedure and treatment not carried out, unspecified reason (principal)

== ENCOUNTER → 2024-08-06 | Outpatient (CLI) | payer MEDICARE, OTHER ==
[2024-08-06 16:52] LABS: ALBUMIN 4.1 G/DL (3.2-5.2); BLOOD UREA NITROGEN 12 MG/DL (9-23); CALCIUM LEVEL 9.6 MG/DL (8.3-10.6); CARBON DIOXIDE LEVEL 29 MMOL/L (20-31); CHLORIDE LEVEL 105 MMOL/L (98-107); CREATININE FOR GFR 0.71 MG/DL (0.55-1.30); GLOMERULAR FILTRATION RATE > 90.0 (>39); GLUCOSE, FASTING 92 MG/DL (74-106); PHOSPHORUS LEVEL 3.2 MG/DL (2.4-5.1); POTASSIUM SERUM 4.5 MMOL/L (3.5-5.1); SODIUM LEVEL 143 MMOL/L (136-145)
== END ==
LOC: M PLALAB 13:34
PROVIDERS: ATTEND Family Medicine
DX: R91.8 Other nonspecific abnormal finding of lung field (principal)

== ENCOUNTER → 2024-08-14 | Outpatient (CLI) | payer MEDICARE, OTHER ==
[~2024-08-14] MED LIST changes: +ISOVUE-370 76% 100ML VIAL ONE
== END ==
LOC: M PLAIMG 13:00
PROVIDERS: ATTEND Family Medicine
DX: R91.8 Other nonspecific abnormal finding of lung field (principal)
CPT/HCPCS: 71260; Q9967

== ENCOUNTER → 2025-03-09 | Outpatient (CLI) | payer MEDICARE, OTHER ==
[~2025-03-09] MED LIST changes: -ISOVUE-370 76% 100ML VIAL ONE
[2025-03-09 17:43] LABS: PLATELET COUNT, AUTOMATED 260 10^3/uL (150-450)
[2025-03-09 17:47] LABS: ALT/SGPT 26.0 U/L (7.0-40); AST/SGOT 24.0 U/L (<34); CALCIUM LEVEL 9.4 MG/DL (8.3-10.6); CARBON DIOXIDE LEVEL 30.0 MMOL/L (20-31); CHLORIDE LEVEL 101.0 MMOL/L (98-107); CHOLESTEROL LEVEL 209.0 MG/DL (<200); CHOLESTEROL RISK RATIO 2.89 (<5); CREATININE FOR GFR 0.77 MG/DL (0.55-1.30); GLOMERULAR FILTRATION RATE 81.9 (>39); IRON (FE) 101.0 UG/DL (50-170); LDL CHOLESTEROL 110.9 MG/DL (<100); NON-HDL-C 136.7 MG/DL; PERCENT SATURATION 32.8 % (13.2-45.0); POTASSIUM SERUM 4.7 MMOL/L (3.5-5.1); SODIUM LEVEL 141.0 MMOL/L (136-145); TRIGLYCERIDES LEVEL 129.0 MG/DL (<150)
[2025-03-09 17:49] LABS: TOTAL 25(OH) VITAMIN D 40.4 NG/ML (20.0-100.0)
== END ==
LOC: M PLALAB 14:29
PROVIDERS: ATTEND Family Medicine
DX: I10 Essential (primary) hypertension (principal); D50.8 Other iron deficiency anemias; N39.46 Mixed incontinence; E55.9 Vitamin D deficiency, unspecified; E78.5 Hyperlipidemia, unspecified; F41.1 Generalized anxiety disorder

== ENCOUNTER 2025-03-30 14:03 | Emergency (ER) | payer MEDICARE, OTHER ==
[~2025-03-30] VITALS: Ht 157.5 cm; Wt 96.0 kg
[2025-03-30 15:05] LABS: BASO # 0.0 10^3/uL (0.0-0.2); BASO % 0.2 % (0.0-1.0); EOS # 0.0 10^3/uL (0.0-0.5); EOS % 0.0 % (0.0-3.0); LYMPH # 1.6 10^3/uL (1.5-5.0); LYMPH % 12.6 % (24.0-44.0); MONO # 0.4 10^3/uL (0.0-0.8); MONO % 3.6 % (2.0-8.0); NEUTROPHILS # 10.2 10^3/uL (1.5-8.5); NEUTROPHILS % 82.9 % (36.0-66.0); PLATELET COUNT, AUTOMATED 317 10^3/uL (150-450)
[2025-03-30] MEDS: IPRATROPIUM 0.5 MG/ALBUTEROL 2.5 MG INH SOL UD 3 ML NEB PRN (15:16)
[2025-03-30 15:25] LABS: ALT/SGPT 27 U/L (7.0-40); AST/SGOT 21 U/L (<34); CALCIUM LEVEL 9.3 MG/DL (8.3-10.6); CARBON DIOXIDE LEVEL 27 MMOL/L (20-31); CHLORIDE LEVEL 102 MMOL/L (98-107); CREATININE FOR GFR 0.68 MG/DL (0.55-1.30); GLOMERULAR FILTRATION RATE > 90.0 (>39); POTASSIUM SERUM 5.0 MMOL/L (3.5-5.1); SODIUM LEVEL 139 MMOL/L (136-145)
[2025-03-30 15:27] LABS: THYROXINE (T4) 8.3 UG/DL (4.5-10.9)
[2025-03-30 15:37] LABS: INR 0.97
[2025-03-30] MEDS ORDERED: ISOVUE-370 76% 100 ML VIAL As Ordered ONE (16:12)
[2025-03-30 20:30] VITALS: BP 111/68
[2025-03-30 20:31] VITALS: TEMP 99.6; O2SAT 94
[2025-03-30] MEDS ORDERED: PRED10TA2 PO (20:36)
[2025-03-30] MEDS ORDERED: BENZ200C70 PO (20:36)
[2025-03-30] MEDS: BENZONATATE 100 MG CAPSULE PO ONE (20:37)
== END 2025-03-30 20:47 | disposition home or self-care (01) ==
LOC: M ED 15:56
DX: J45.901 Unspecified asthma with (acute) exacerbation (principal); F41.1 Generalized anxiety disorder; K21.9 Gastro-esophageal reflux disease without esophagitis; E78.5 Hyperlipidemia, unspecified; E66.9 Obesity, unspecified; G25.81 Restless legs syndrome; Z87.442 Personal history of urinary calculi; Z88.0 Allergy status to penicillin; Z88.2 Allergy status to sulfonamides; Z88.8 Allergy status to other drugs, medicaments and biological substances; Z79.52 Long term (current) use of systemic steroids; Z79.82 Long term (current) use of aspirin; Z79.899 Other long term (current) drug therapy
CPT/HCPCS: 71046; 71275; 80048; 80076; 83605; 83880; 84145; 84436; 84443; 85025; 85610; 87040; 87486; 87581; 87633; 87798; 93005; 93041; 94640; 94760; 96374; 99285; J1100; Q9967